=== PATIENT | female | born 1955 | race Caucasian/White ===

== ENCOUNTER 2018-01-04 17:32 | Inpatient (IN) ==
[2018-01-04] MEDS ORDERED: 0.9 % Sodium Chloride 1,000 ML IVC ONE (18:19)
[2018-01-04 18:52] LABS: Basophils % 0.2 %; Hematocrit 34.3 % (35.3-44.9); Hemoglobin 11.6 g/dL (11.5-15.4); Immature Granulocytes % 1.5 % (0-4); Lymphocytes # 0.3 K/mcL (0.6-4.6); Lymphocytes % 2.6 %; Mean Corpuscular HGB Conc 33.8 g/dL (31.6-35.5); Mean Corpuscular Hemoglobin 29.5 pg (28.0-33.3); Mean Corpuscular Volume 87.3 fL (83.0-100.0); Mean Platelet Volume 10.7 fL (9.4-12.4); Monocytes # 0.6 K/mcL (0.0-1.3); Monocytes % 6.3 %; Neutrophils # 9.1 K/mcL (1.6-8.9); Platelet Count 228 K/mcL (140-400); Red Blood Count 3.93 M/mcL (3.82-4.97); Red Cell Distribution Width 15.6 % (11.5-14.5); Segmented Neutrophils % 89.4 %
--- NOTE | 2018-01-04 18:53 | Emergency Department Note ---
Disposition Clinical Impression: Hyperglycemia, Altered mental status Disposition: Admitted As Inpatient Condition: Fair Referrals: Micheal Dickerson DO [Primary Care Provider] - Time of Disposition: 00:44 Recheck wound or abnormal lab - General Chief Complaint: ED Recheck/Abnormal Lab/Rx Stated Complaint: Abnormal labs/Cancer patient Time Seen by Provider: 01/04/18 18:05 - History of Present Illness HPI Narrative: 62yo female PMH diabetes, hypertension, COPD presented to [facility] [place] complaining of abnormal lab results and her PCP told her to go ED. She is alongside her sister and daughter who reports that the patient was recently diagnosed with lung cancer and she is supposed to get a biopsy soon. They report she has had to be admitted recently due to abnormal electrolytes. They report that the patient has been more confused lately and is incontinent of urine and stool. She also has more edema around face and legs. They say this confusion and incontinence has happened before when she had an infection. The patient has also had multiple falls but denies hitting her head are losing consciousness. She admits to nausea and increased swelling of legs and face. She denies fever, chills, chest pain, shortness of breath, abdominal pain, nausea. She has not been checking her glucose. She is a former smoker of 3ppd since 14yo who quit 2 years ago. Her father of lung cancer. - Related Data Home Medications Medication Instructions Recorded Confirmed Albiglutide [Tanzeum] 30 mg SQ QWEEK 06/24/16 06/24/16 Atorvastatin Calcium [Lipitor] 80 mg PO DAILY 06/24/16 06/24/16 BuPROPion SR (12 HR) [Wellbutrin 200 mg PO BID 06/24/16 06/24/16 SR] Cyclobenzaprine [Flexeril] 10 mg PO HS 06/24/16 06/24/16 Gabapentin [Neurontin] 600 mg PO TID 06/24/16 06/24/16 GlipiZIDE [Glipizide Xl] 5 mg PO DAILY 06/24/16 06/24/16 Losartan/Hydrochlorothiazide 1 tab PO DAILY 06/24/16 06/24/16 [Hyzaar 100-25 Tablet] Montelukast [Singulair] 10 mg PO DAILY 06/24/16 06/24/16 Sertraline [Zoloft] 100 mg PO DAILY 06/24/16 06/24/16 TraZODone 75 mg PO HS 06/24/16 06/24/16 metFORMIN [Glucophage] 1,000 mg PO BID 06/24/16 06/24/16 Previous Rx's Medication Instructions Recorded Azithromycin [Zithromax Tri-Ramesh] 500 mg PO DAILY #7 tablet 06/26/16 Cefpodoxime Proxetil 200 mg PO BID #14 tablet 06/26/16 Lactobacillus [Culturelle] 1 each PO BID #14 cap.sprink 06/26/16 Azithromycin [Zithromax] 0 tab PO DAILY #6 tablet 11/02/17 Fluconazole [Diflucan] 150 mg PO DAILY #1 tab 11/02/17 Promethazine/Codeine 5 - 10 ml PO QPM PRN 8 Days #90 ml 11/02/17 [Phenergan/Codeine] Ciprofloxacin [Cipro] 500 mg PO BID 7 Days tablet 12/09/17 Allergies Allergy/AdvReac Type Severity Reaction Status Date / Time Sulfa (Sulfonamide Allergy Hives Verified 06/24/16 01:33 Antibiotics) All systems ED: reviewed and negative except as stated. Review of Systems: As Per HPI Constitutional: Denies: fever, chills Cardiovascular: Denies: chest pain Respiratory: Denies: cough, dyspnea Gastrointestinal: Reports: nausea. Denies: abdominal pain, diarrhea, melena, hematochezia Genitourinary: Denies: urgency Integumentary: Reports: other (Ecchymosis left side) Neurological: Denies: headache Endocrine: Reports: fatigue Past Medical History - Past Medical History Medical history: Reports: arthritis, cancer, COPD, diabetes, hypertension, other Surgical history: Reports: , cancer surgery, cataract, cholecystectomy , hysterectomy, other Psychiatric history: Reports: anxiety, depression - Social History Smoking Status: Former smoker Smokeless Tobacco Status: Yes Alcohol use: Reports: none Drug use: Reports: none Physical Exam - General Limitations: no limitations General appearance: alert, in no apparent distress - Head Head exam: atraumatic - Eye Eye exam: Present: normal appearance - Respiratory Respiratory exam: Present: normal lung sounds bilaterally. Absent: wheezes - Cardiovascular Cardiovascular exam: Present: regular rate, normal rhythm. Absent: systolic murmur - Abdominal Exam Abdominal exam: Present: soft, Non-Tender, normal bowel sounds. Absent: guarding - Extremities Exam Extremities exam: Present: pedal edema. Absent: tenderness - Expanded Lower Extremity Exam Lower leg exam: Present: swelling (2+ pitting edema), other (amputation mutiple toes). Absent: tenderness, erythema - Neurological Exam Neurological exam: Present: alert, oriented X3 - Psychiatric Psychiatric exam: Present: normal affect, normal mood - Skin Skin exam: Present: dry, intact Course Course Narrative: 62yo female PMH diabetes, hypertension, COPD presented to [facility] [place] complaining of abnormal lab results and her PCP told her to go ED. The patient has been more confused over the past 3 days along with more fatigue, incontinence, swelling. She was recently diagnosed with lung cancer that has metastasized to liver. She has had to be admitted recently for electrolyte abnormalities. Differential includes electrolyte abnormalities from lung cancer, UTI, pneumonia, Hyperglycemia. Will order CBC, BMP, CXR, urinalysis, lactic acid, troponin, CK. - Reevaluation(s) Reevaluation #1: Glucose 539, CXR unremarkable. Will give potassium, magnesium, insulin. beta hydroxybuteric acid >2. Anion gap normal. Time: 20:12 Vital Signs Temperature 97.4 F L 01/04/18 17:34 Pulse Rate 95 01/04/18 17:34 Respiratory Rate 18 01/04/18 17:34 Blood Pressure 163/77 01/04/18 17:34 O2 Sat by Pulse Oximetry 92 01/04/18 17:34 Temperature 97.4 F L 01/04/18 17:51 Pulse Rate 87 01/04/18 22:13 Respiratory Rate 16 01/04/18 18:57 Blood Pressure 159/82 01/04/18 22:13 O2 Sat by Pulse Oximetry 98 01/04/18 18:57 Oxygen Delivery Oxygen Delivery Nasal Cannula Recheck wound or abnormal lab - MDM Narrative Medical decision making narrative: 62yo female PMH diabetes, hypertension, COPD presented to [facility] [place] complaining of abnormal lab results and her PCP told her to go ED. Recently diagnosed with lung cancer with metastases to liver at [facility] when she was there for electrolyte abnormalities. She is supposed to get a biopsy soon. Family report that the patient has been more confused lately and is incontinent of urine and stool. She also has more edema around face and legs. They say this confusion and incontinence has happened before when she had an infection. The patient has also had multiple falls but denies hitting her head are losing consciousness. She admits to nausea and increased swelling of legs and face. She denies fever, chills, chest pain, shortness of breath, abdominal pain, nausea. She has not been checking her glucose. She is a former smoker of 3ppd since 14yo who quit 2 years ago. Confusion may be related to hyperglycemia. Head CT negative for acute intracranial abnormality. Hepatic panel, ammonia, MRI lumbar ordered per hospitalist request. MRI demonstrated lesion in thoracic and lumbar spinal cord concerning for metastatic disease, no spinal cord compression or cauda equina. However, there is moderate canal stenosis L4-L5, antereolithesis, and spondylolithesis. She will be admitted to hospital for further evaluation. - Medical Records Medical records reviewed: Yes I reviewed the patient's medical records. - Lab Data Lab results reviewed: Yes I reviewed the patient's lab results. Result diagrams: 01/04/18 18:28 01/04/18 18:28 Lab Results 01/04/18 01/04/18 01/04/18 Range/Units 18:20 18:28 18:28 WBC 10.2 (4.3-11.1) K/mcL RBC 3.93 (3.82-4.97) M/mcL Hgb 11.6 (11.5-15.4) g/dL Hct 34.3 L (35.3-44.9) % MCV 87.3 (83.0-100.0) fL MCH 29.5 (28.0-33.3) pg MCHC 33.8 (31.6-35.5) g/dL RDW 15.6 H (11.5-14.5) % Plt Count 228 (140-400) K/mcL MPV 10.7 (9.4-12.4) fL Immature Gran % 1.5 (0-4) % Seg Neutrophils % 89.4 % Lymphocytes % 2.6 % Monocytes % 6.3 % Eosinophils % 0.0 % Basophils % 0.2 % Neutrophils # 9.1 H (1.6-8.9) K/mcL Lymphocytes # 0.3 L (0.6-4.6) K/mcL Monocytes # 0.6 (0.0-1.3) K/mcL Eosinophils # 0.0 (0.0-0.6) K/mcL Basophils # 0.0 (0.0-0.2) K/mcL PT 11.2 (9.4-12.1) Seconds INR 1.0 APTT 22.4 L (26.0-36.0) Seconds Sodium (136-145) mEq/L Potassium (3.5-5.1) mEq/L Chloride (98-107) mEq/L Carbon Dioxide (23-29) mEq/L BUN (8-23) mg/dL Creatinine (0.60-1.20) mg/dL Est GFR ( Amer) (> 60) Est GFR (Non-Af Amer) (> 60) BUN/Creatinine Ratio (6-26) Glucose (70-105) mg/dL Calculated Osmolality (280-300) Lactic Acid (0.5-2.2) mmol/L Calcium (8.6-10.3) mg/dL Magnesium (1.6-2.6) mg/dL Total Bilirubin (0.3-1.0) mg/dL Direct Bilirubin (0.0-0.2) mg/dL Indirect Bilirubin (0.0-1.2) mg/dL AST (13-39) Units/L ALT (7-52) Units/L Alkaline Phosphatase (34-104) Units/L Creatine Kinase (30-223) Units/L Troponin I (< 0.04) ng/mL Serum Total Protein (6.4-8.9) g/dL Albumin (3.5-5.7) g/dL Globulin (2.4-3.5) g/dL Albumin/Globulin Ratio (1.1-2.2) Beta-Hydroxybutyric Acd > 2.00 H (0.02-0.27) mmol/L Urine Color (Yellow) Urine Clarity (Clear) Urine pH (5.0-8.0) pH Units Ur Specific [place] (1.010-1.025) Urine Protein (Neg-Trace) mg/dL Urine Glucose (UA) (Normal) mg/dL Urine Ketones (Negative) mg/dL Urine Blood (Negative) Urine Nitrite (Negative) Urine Bilirubin (Negative) Urine Urobilinogen (Normal) mg/dL Ur Leukocyte Esterase (Negative) Urine Microscopic RBC (0-3) per hpf Urine Microscopic WBC (0-3) per hpf Ur Squamous Epith Cells (None-Few) per lpf Urine Bacteria (None-Few) per hpf Hyaline Casts (None-Few) per lpf Ur Culture Indicated? (NO) 01/04/18 01/04/18 01/04/18 Range/Units 18:28 18:28 18:28 WBC (4.3-11.1) K/mcL RBC (3.82-4.97) M/mcL Hgb (11.5-15.4) g/dL Hct (35.3-44.9) % MCV (83.0-100.0) fL MCH (28.0-33.3) pg MCHC (31.6-35.5) g/dL RDW (11.5-14.5) % Plt Count (140-400) K/mcL MPV (9.4-12.4) fL Immature Gran % (0-4) % Seg Neutrophils % % Lymphocytes % % Monocytes % % Eosinophils % % Basophils % % Neutrophils # (1.6-8.9) K/mcL Lymphocytes # (0.6-4.6) K/mcL Monocytes # (0.0-1.3) K/mcL Eosinophils # (0.0-0.6) K/mcL Basophils # (0.0-0.2) K/mcL PT (9.4-12.1) Seconds INR APTT (26.0-36.0) Seconds Sodium 138 (136-145) mEq/L Potassium 3.7 (3.5-5.1) mEq/L Chloride 97 L (98-107) mEq/L Carbon Dioxide 29 (23-29) mEq/L BUN 31 H (8-23) mg/dL Creatinine 0.91 (0.60-1.20) mg/dL Est GFR ( Amer) > 60 (> 60) Est GFR (Non-Af Amer) > 60 (> 60) BUN/Creatinine Ratio 34 H (6-26) Glucose 539 H* (70-105) mg/dL Calculated Osmolality 317 H (280-300) Lactic Acid 1.0 (0.5-2.2) mmol/L Calcium 8.4 L (8.6-10.3) mg/dL Magnesium 1.5 L (1.6-2.6) mg/dL Total Bilirubin 0.6 (0.3-1.0) mg/dL Direct Bilirubin 0.3 H (0.0-0.2) mg/dL Indirect Bilirubin 0.3 (0.0-1.2) mg/dL AST 36 (13-39) Units/L ALT 64 H (7-52) Units/L Alkaline Phosphatase 230 H (34-104) Units/L Creatine Kinase 85 (30-223) Units/L Troponin I 0.03 (< 0.04) ng/mL Serum Total Protein 5.2 L (6.4-8.9) g/dL Albumin 3.1 L (3.5-5.7) g/dL Globulin 2.1 L (2.4-3.5) g/dL Albumin/Globulin Ratio 1.5 (1.1-2.2) Beta-Hydroxybutyric Acd (0.02-0.27) mmol/L Urine Color (Yellow) Urine Clarity (Clear) Urine pH (5.0-8.0) pH Units Ur Specific [place] (1.010-1.025) Urine Protein (Neg-Trace) mg/dL Urine Glucose (UA) (Normal) mg/dL Urine Ketones (Negative) mg/dL Urine Blood (Negative) Urine Nitrite (Negative) Urine Bilirubin (Negative) Urine Urobilinogen (Normal) mg/dL Ur Leukocyte Esterase (Negative) Urine Microscopic RBC (0-3) per hpf Urine Microscopic WBC (0-3) per hpf Ur Squamous Epith Cells (None-Few) per lpf Urine Bacteria (None-Few) per hpf Hyaline Casts (None-Few) per lpf Ur Culture Indicated? (NO) 01/04/18 Range/Units 20:29 WBC (4.3-11.1) K/mcL RBC (3.82-4.97) M/mcL Hgb (11.5-15.4) g/dL Hct (35.3-44.9) % MCV (83.0-100.0) fL MCH (28.0-33.3) pg MCHC (31.6-35.5) g/dL RDW (11.5-14.5) % Plt Count (140-400) K/mcL MPV (9.4-12.4) fL Immature Gran % (0-4) % Seg Neutrophils % % Lymphocytes % % Monocytes % % Eosinophils % % Basophils % % Neutrophils # (1.6-8.9) K/mcL Lymphocytes # (0.6-4.6) K/mcL Monocytes # (0.0-1.3) K/mcL Eosinophils # (0.0-0.6) K/mcL Basophils # (0.0-0.2) K/mcL PT (9.4-12.1) Seconds INR APTT (26.0-36.0) Seconds Sodium (136-145) mEq/L Potassium (3.5-5.1) mEq/L Chloride (98-107) mEq/L Carbon Dioxide (23-29) mEq/L BUN (8-23) mg/dL Creatinine (0.60-1.20) mg/dL Est GFR ( Amer) (> 60) Est GFR (Non-Af Amer) (> 60) BUN/Creatinine Ratio (6-26) Glucose (70-105) mg/dL Calculated Osmolality (280-300) Lactic Acid (0.5-2.2) mmol/L Calcium (8.6-10.3) mg/dL Magnesium (1.6-2.6) mg/dL Total Bilirubin (0.3-1.0) mg/dL Direct Bilirubin (0.0-0.2) mg/dL Indirect Bilirubin (0.0-1.2) mg/dL AST (13-39) Units/L ALT (7-52) Units/L Alkaline Phosphatase (34-104) Units/L Creatine Kinase (30-223) Units/L Troponin I (< 0.04) ng/mL Serum Total Protein (6.4-8.9) g/dL Albumin (3.5-5.7) g/dL Globulin (2.4-3.5) g/dL Albumin/Globulin Ratio (1.1-2.2) Beta-Hydroxybutyric Acd (0.02-0.27) mmol/L Urine Color Yellow (Yellow) Urine Clarity Clear (Clear) Urine pH 6.0 (5.0-8.0) pH Units Ur Specific [place] > 1.030 H (1.010-1.025) Urine Protein Trace (Neg-Trace) mg/dL Urine Glucose (UA) >=1000 H (Normal) mg/dL Urine Ketones 15 H (Negative) mg/dL Urine Blood Trace H (Negative) Urine Nitrite Negative (Negative) Urine Bilirubin Negative (Negative) Urine Urobilinogen Normal (Normal) mg/dL Ur Leukocyte Esterase Negative (Negative) Urine Microscopic RBC 0-3 (0-3) per hpf Urine Microscopic WBC 0-3 (0-3) per hpf Ur Squamous Epith Cells Many H (None-Few) per lpf Urine Bacteria None Seen (None-Few) per hpf Hyaline Casts None Seen (None-Few) per lpf Ur Culture Indicated? NO (NO) - Radiology Data Radiology results reviewed: Yes I reviewed the patient's radiology results. Chest X-Ray 01/04/18 18:20 IMPRESSION: Negative portable study. D/ / Allyson Briones Cha, MD / Allyson Briones Cha, MD Interpreting Provider: Allyson Briones Cha, MD Head CT 01/04/18 19:14 IMPRESSION: No acute intracranial abnormality. D/ / Bethel Dixon MD / Bethel Dixon MD Interpreting Provider: Bethel Dixon MD - EKG Data EKG attestation: Yes I reviewed and interpreted this EKG. EKG results narrative: EKG: HR 82, NSR, left axid deviation, no ST or T wave changes. No ischemia noted. MD 147, QRS 83, QT/QTc 366/ 405 EKG shows normal: sinus rhythm Rate: normal Rhythm: NSR [place]/QRS: left axis deviation
[2018-01-04 18:58] LABS: Prothrombin Time 11.2 Seconds (9.4-12.1)
[2018-01-04 19:01] LABS: Activated Partial Thrombo Time 22.4 Seconds (26.0-36.0)
[2018-01-04 19:12] LABS: Troponin I 0.03 ng/mL (< 0.04)
[2018-01-04 19:15] LABS: BUN/Creatinine Ratio 34 (6-26); Blood Urea Nitrogen 31 mg/dL (8-23); Calcium 8.4 mg/dL (8.6-10.3); Carbon Dioxide 29 mEq/L (23-29); Chloride 97 mEq/L (98-107); Creatine Kinase 85 Units/L (30-223); Glucose 539 mg/dL (70-105); Osmolality,Calculated 317 (280-300); Potassium 3.7 mEq/L (3.5-5.1); Sodium 138 mEq/L (136-145); eGFR For African Americans > 60 (> 60); eGFR For Non-African Americans > 60 (> 60)
[2018-01-04] MEDS ORDERED: Insulin Human Regular 10 UNIT in 0.9 % Sodium Chloride 10 ML IV ONE (19:46)
[2018-01-04 20:36] LABS: Magnesium 1.5 mg/dL (1.6-2.6)
[2018-01-04 20:38] LABS: Bilirubin,Urine Negative (Negative); Blood,Urine Trace (Negative); Clarity,Urine Clear (Clear); Color,Urine Yellow (Yellow); Glucose,Urine (UA) >=1000 mg/dL (Normal); Ketones,Urine 15 mg/dL (Negative); Leukocyte Esterase,Urine Negative (Negative); Nitrite,Urine Negative (Negative); Protein,Urine Trace mg/dL (Neg-Trace); Specific Gravity,Urine > 1.030 (1.010-1.025); Urobilinogen,Urine Normal (Normal)
[2018-01-04 20:40] LABS: Bacteria,Urine None Seen per hpf (None-Few); Hyaline Casts,Urine None Seen per lpf (None-Few); RBC,Urine 0-3 per hpf (0-3); Squamous Epithelial Cell,Urine Many per lpf (None-Few); WBC,Urine 0-3 per hpf (0-3)
[2018-01-04] MEDS ORDERED: Potassium Chloride 40 MEQ, Lidocaine 1% 2 ML in D5% in Water 500 ML IVPB ONE (21:07)
--- NOTE | 2018-01-04 21:13 | Emergency Department Note ---
Disposition Clinical Impression: Hyperglycemia Altered mental status Qualifiers: Altered mental status type: unspecified Qualified Code(s): R41.82 - Altered mental status, unspecified Disposition: Admitted As Inpatient Condition: Fair Referrals: Micheal Dickerson DO [Primary Care Provider] - Forms: ED Satisfaction Letter General Adult HPI - General Chief complaint: ED Recheck/Abnormal Lab/Rx Stated complaint: Abnormal labs/Cancer patient Time Seen by Provider: 01/04/18 18:05 Limitations: no limitations Nursing Notes Reviewed: Yes Vital Signs Reviewed: Yes - History of Present Illness Pain Scale: 0 - Related Data Home Medications Medication Instructions Recorded Confirmed Albiglutide [Tanzeum] 30 mg SQ QWEEK 06/24/16 06/24/16 Atorvastatin Calcium [Lipitor] 80 mg PO DAILY 06/24/16 06/24/16 BuPROPion SR (12 HR) [Wellbutrin 200 mg PO BID 06/24/16 06/24/16 SR] Cyclobenzaprine [Flexeril] 10 mg PO HS 06/24/16 06/24/16 Gabapentin [Neurontin] 600 mg PO TID 06/24/16 06/24/16 GlipiZIDE [Glipizide Xl] 5 mg PO DAILY 06/24/16 06/24/16 Losartan/Hydrochlorothiazide 1 tab PO DAILY 06/24/16 06/24/16 [Hyzaar 100-25 Tablet] Montelukast [Singulair] 10 mg PO DAILY 06/24/16 06/24/16 Sertraline [Zoloft] 100 mg PO DAILY 06/24/16 06/24/16 TraZODone 75 mg PO HS 06/24/16 06/24/16 metFORMIN [Glucophage] 1,000 mg PO BID 06/24/16 06/24/16 Previous Rx's Medication Instructions Recorded Azithromycin [Zithromax Tri-Ramesh] 500 mg PO DAILY #7 tablet 06/26/16 Cefpodoxime Proxetil 200 mg PO BID #14 tablet 06/26/16 Lactobacillus [Culturelle] 1 each PO BID #14 cap.sprink 06/26/16 Azithromycin [Zithromax] 0 tab PO DAILY #6 tablet 11/02/17 Fluconazole [Diflucan] 150 mg PO DAILY #1 tab 11/02/17 Promethazine/Codeine 5 - 10 ml PO QPM PRN 8 Days #90 ml 11/02/17 [Phenergan/Codeine] Ciprofloxacin [Cipro] 500 mg PO BID 7 Days tablet 12/09/17 Allergies Allergy/AdvReac Type Severity Reaction Status Date / Time Sulfa (Sulfonamide Allergy Hives Verified 06/24/16 01:33 Antibiotics) Constitutional: Denies: fever, chills Cardiovascular: Denies: chest pain Respiratory: Denies: cough, dyspnea Gastrointestinal: Reports: nausea. Denies: abdominal pain, diarrhea, melena, hematochezia Genitourinary: Denies: urgency Integumentary: Reports: other (Ecchymosis left side) Neurological: Denies: headache Endocrine: Reports: fatigue Past Medical History - Past Medical History Medical history: Reports: arthritis, cancer, COPD, diabetes, hypertension, other Surgical history: Reports: , cancer surgery, cataract, cholecystectomy , hysterectomy, other Psychiatric history: Reports: anxiety, depression - Social History Smoking Status: Former smoker Smokeless Tobacco Status: Yes Alcohol use: Reports: none Drug use: Reports: none Physical Exam - General Limitations: no limitations General appearance: alert, in no apparent distress Course Vital Signs Temperature 97.4 F L 01/04/18 17:34 Pulse Rate 95 01/04/18 17:34 Respiratory Rate 18 01/04/18 17:34 Blood Pressure 163/77 01/04/18 17:34 O2 Sat by Pulse Oximetry 92 01/04/18 17:34 Temperature 97.4 F L 01/04/18 17:51 Pulse Rate 85 01/04/18 18:57 Respiratory Rate 16 01/04/18 18:57 Blood Pressure 165/89 01/04/18 18:57 O2 Sat by Pulse Oximetry 98 01/04/18 18:57 Oxygen Delivery Oxygen Delivery Nasal Cannula Medical Decision Making - Lab Data Result diagrams: 01/04/18 18:28 01/04/18 18:28 Lab Results 01/04/18 01/04/18 01/04/18 Range/Units 18:20 18:28 18:28 WBC 10.2 (4.3-11.1) K/mcL RBC 3.93 (3.82-4.97) M/mcL Hgb 11.6 (11.5-15.4) g/dL Hct 34.3 L (35.3-44.9) % MCV 87.3 (83.0-100.0) fL MCH 29.5 (28.0-33.3) pg MCHC 33.8 (31.6-35.5) g/dL RDW 15.6 H (11.5-14.5) % Plt Count 228 (140-400) K/mcL MPV 10.7 (9.4-12.4) fL Immature Gran % 1.5 (0-4) % Seg Neutrophils % 89.4 % Lymphocytes % 2.6 % Monocytes % 6.3 % Eosinophils % 0.0 % Basophils % 0.2 % Neutrophils # 9.1 H (1.6-8.9) K/mcL Lymphocytes # 0.3 L (0.6-4.6) K/mcL Monocytes # 0.6 (0.0-1.3) K/mcL Eosinophils # 0.0 (0.0-0.6) K/mcL Basophils # 0.0 (0.0-0.2) K/mcL PT 11.2 (9.4-12.1) Seconds INR 1.0 APTT 22.4 L (26.0-36.0) Seconds Sodium (136-145) mEq/L Potassium (3.5-5.1) mEq/L Chloride (98-107) mEq/L Carbon Dioxide (23-29) mEq/L BUN (8-23) mg/dL Creatinine (0.60-1.20) mg/dL Est GFR ( Amer) (> 60) Est GFR (Non-Af Amer) (> 60) BUN/Creatinine Ratio (6-26) Glucose (70-105) mg/dL Calculated Osmolality (280-300) Lactic Acid (0.5-2.2) mmol/L Calcium (8.6-10.3) mg/dL Magnesium (1.6-2.6) mg/dL Creatine Kinase (30-223) Units/L Troponin I (< 0.04) ng/mL Beta-Hydroxybutyric Acd > 2.00 H (0.02-0.27) mmol/L Urine Color (Yellow) Urine Clarity (Clear) Urine pH (5.0-8.0) pH Units Ur Specific [place] (1.010-1.025) Urine Protein (Neg-Trace) mg/dL Urine Glucose (UA) (Normal) mg/dL Urine Ketones (Negative) mg/dL Urine Blood (Negative) Urine Nitrite (Negative) Urine Bilirubin (Negative) Urine Urobilinogen (Normal) mg/dL Ur Leukocyte Esterase (Negative) Urine Microscopic RBC (0-3) per hpf Urine Microscopic WBC (0-3) per hpf Ur Squamous Epith Cells (None-Few) per lpf Urine Bacteria (None-Few) per hpf Hyaline Casts (None-Few) per lpf Ur Culture Indicated? (NO) 01/04/18 01/04/18 01/04/18 Range/Units 18:28 18:28 20:29 WBC (4.3-11.1) K/mcL RBC (3.82-4.97) M/mcL Hgb (11.5-15.4) g/dL Hct (35.3-44.9) % MCV (83.0-100.0) fL MCH (28.0-33.3) pg MCHC (31.6-35.5) g/dL RDW (11.5-14.5) % Plt Count (140-400) K/mcL MPV (9.4-12.4) fL Immature Gran % (0-4) % Seg Neutrophils % % Lymphocytes % % Monocytes % % Eosinophils % % Basophils % % Neutrophils # (1.6-8.9) K/mcL Lymphocytes # (0.6-4.6) K/mcL Monocytes # (0.0-1.3) K/mcL Eosinophils # (0.0-0.6) K/mcL Basophils # (0.0-0.2) K/mcL PT (9.4-12.1) Seconds INR APTT (26.0-36.0) Seconds Sodium 138 (136-145) mEq/L Potassium 3.7 (3.5-5.1) mEq/L Chloride 97 L (98-107) mEq/L Carbon Dioxide 29 (23-29) mEq/L BUN 31 H (8-23) mg/dL Creatinine 0.91 (0.60-1.20) mg/dL Est GFR ( Amer) > 60 (> 60) Est GFR (Non-Af Amer) > 60 (> 60) BUN/Creatinine Ratio 34 H (6-26) Glucose 539 H* (70-105) mg/dL Calculated Osmolality 317 H (280-300) Lactic Acid 1.0 (0.5-2.2) mmol/L Calcium 8.4 L (8.6-10.3) mg/dL Magnesium 1.5 L (1.6-2.6) mg/dL Creatine Kinase 85 (30-223) Units/L Troponin I 0.03 (< 0.04) ng/mL Beta-Hydroxybutyric Acd (0.02-0.27) mmol/L Urine Color Yellow (Yellow) Urine Clarity Clear (Clear) Urine pH 6.0 (5.0-8.0) pH Units Ur Specific [place] > 1.030 H (1.010-1.025) Urine Protein Trace (Neg-Trace) mg/dL Urine Glucose (UA) >=1000 H (Normal) mg/dL Urine Ketones 15 H (Negative) mg/dL Urine Blood Trace H (Negative) Urine Nitrite Negative (Negative) Urine Bilirubin Negative (Negative) Urine Urobilinogen Normal (Normal) mg/dL Ur Leukocyte Esterase Negative (Negative) Urine Microscopic RBC 0-3 (0-3) per hpf Urine Microscopic WBC 0-3 (0-3) per hpf Ur Squamous Epith Cells Many H (None-Few) per lpf Urine Bacteria None Seen (None-Few) per hpf Hyaline Casts None Seen (None-Few) per lpf Ur Culture Indicated? NO (NO) Attestation Statement - Attestation Attestation: I, Cruz Cain, examined this patient and my medical decision-making was reviewed with the QUALITY ASSURANCE MONITOR BODY/PA/Advanced Practice Nurse/Resident Physician. I agree with the documented findings, disposition and treatment plan as described except to the extent set forth below. 62-year-old female presents emergency Department with concerns of confusion, abnormal lab results. Family states patient was sent in for hypokalemia and hypomagnesemia. Patient recently had similar diagnosis and had her electrolytes repleted within the past week at [facility]. She was just discharged within the past week. Patient was also recently diagnosed with lung cancer, she has not had a formal evaluation of her cancer. Family states the patient was sent to [facility] for further evaluation of her cancer including possible biopsy. Patient's PCP is Dr. Dickerson. Patient has significantly elevated glucose on examination. She also has elevated beta hydroxybutyric acid however she does not have an anion gap. Patient urinalysis was negative for urinary tract infection. Family states patient has been forgetting to take her metformin and insulin. Patient had a fall 2 weeks ago however she has had an evaluation in the emergency department ruling out traumatic injury since that time. Head CT was negative for acute fracture or intracranial hemorrhage. Patient is comfortable with the plan for admission to the hospital for further care and evaluation. Patient given insulin and potassium replacement in the emergency department.
[2018-01-04 21:42] LABS: Albumin 3.1 g/dL (3.5-5.7); Albumin/Globulin Ratio 1.5 (1.1-2.2); Bilirubin,Direct 0.3 mg/dL (0.0-0.2); Bilirubin,Indirect 0.3 mg/dL (0.0-1.2); Bilirubin,Total 0.6 mg/dL (0.3-1.0); Globulin 2.1 g/dL (2.4-3.5); Total Protein 5.2 g/dL (6.4-8.9)
[2018-01-04] MEDS ORDERED: Gadolinium Contrast Agent (WT Based) IV PRN (21:44)
[2018-01-04] MEDS ORDERED: Petrolatum, White OINT.PACK TP ONE (22:01)
--- NOTE | 2018-01-05 02:03 | Event Note ---
Date of Encounter: 01/05/18 Time of Encounter: 01:46 Patient was seen and examined. I agree with the H&P as written by the resident physician. Briefly, 62-year-old female who has a history of hypertension, hyperlipidemia, diabetes mellitus, COPD, history of osteomyelitis of the lower extremities, morbid obesity, former smoking history who presented to us by recommendations from her primary care physician due to abnormal lab results. She was sent to the ED. I am not exactly sure what abnormal lab results those were. The patient was recently discharged about a week ago from [facility] for abnormal labs as well and at the time the family tells me that she had hypokalemia. Some time while she was there she ended up with imaging studies that showed suspected lung mass with metastasis to the liver. She apparently was going to have a scheduled biopsy done. We do not have any of those records. The family reported frequent falls over the last week or so as well as generalized weakness, confusion, urinary and bowel incontinence. When she presented to the ED, the patient had laboratory workup as well as a CT head which was unremarkable and a chest x-ray that was negative. When I went to evaluate the patient for an admission and due to her history I had asked the ED staff to obtain MRIs of her brain, lumbar, and thoracic spine to rule out brain metastases and any possible vasogenic edema/brain herniation and to rule out spinal cord metastases and possible spinal cord compression. The ED did obtain these imaging studies in the ED and and MRI of the brain showed tiny foci of suspected restricted diffusion in the right centrum semi-ovale white matter and left occipital lobe likely to present tiny acute infarcts. The MRI of the lumbar and thoracic spine showed multi-level osseous lesions throughout the spine suspicious for metastatic disease with no evidence of compression of the spinal cord. There was also moderate canal stenosis at L4-L5 as well as L5-S1 central/right paracentral disc protrusion impinging on the right S1 nerve root. Her labs were mostly significant for hyperglycemia with glucose of 539 and abnormal liver function tests. The patient was not in DKA. The patient was hypertensive in the ED. I spoke to the family in details about the patient's likely diagnosis and I even offered them a transfer to another facility ([facility]ly [facility] where she had her original workup). They preferred to stay in this facility as it is closer to home. RGEN: NAD, alert oriented 2 CVS: RRR. S1, S2, No m/r/g RESP: Diminished breath sounds ABD: Soft, NT, ND, +BS EXT: No edema. 2+ DP. No rashes NEURO: Strength is about 4 out of 5 in the right upper and right lower extremities. 5/5 on the left upper and lower. No sensory deficits. Admit the patient to the hospitalist service. Consult oncology. Patient may need a CTA of the neck to rule out SVC syndrome. We will leave that to oncology to decide on for now. Consult neurology for possible acute stroke although I suspect those are possibly metastatic lesions rather than infarcts. Symptoms have been going on for about a week or so. Hold off on aspirin for now. Nothing by mouth Obtain records from [facility] May need a consult to pulmonary for possible biopsy. This will be decided pending on the imaging studies that were done at [facility] Gentle hydration Mediums dose sliding scale insulin Pain control DVT prophylaxis
[2018-01-05] MEDS ORDERED: *HR* Dextrose 50 % in Water (Syg) 50 ML SYRINGE IVP PRN (02:18)
[2018-01-05] MEDS ORDERED: Dextrose Gel 15 GM/37.5 ML TUBE PO PRN ×2 (02:18)
[2018-01-05] MEDS ORDERED: D5% in Water 1,000 ML IVC PRN (02:18)
[2018-01-05] MEDS ORDERED: Lactulose Oral Soln 20 GM/30 ML UDC PO ONE (02:50)
--- NOTE | 2018-01-05 03:06 | Internal Med History&Physical ---
Date of Encounter: 01/05/18 Time of Encounter: 03:06 Internal Medicine - H&P: HPI Chief complaint: AMS Admitted From: Home Plans for Post Hospital Care: Home History of present illness: Ms. Gracia is a 62 year old female with a past medical history of hypertension, diabetes insulin-dependent with complications of multiple rate total amputation , COPD non-oxygen dependent, and newly diagnosed at [facility] right lung mass (last week) who presented to the ED after patient saw her PCP with AMS and low potassium. Patient's family is with her and states that she was admitted to [facility] last week for hypokalemia and was found to have a CT scan that showed was suspicious for lung mass. Patient was discharged from the hospital and since the day after discharge family states that she has been confused for about the last week with associated nausea and vomiting, loss of bowel and bladder, increase weakness. Previous to the last week patient was able to walk and has not been able to for 1 week. In the ED, imaging studies were obtained and CT head unremarkable, chest x-ray negative, MRI of brain showed showed tiny foci of suspected restricted diffusion in the right centrum semi-ovale white matter and left occipital lobe likely to present tiny acute infarcts. MRI of the lumbar and thoracic spine showed multi-level osseous lesions throughout the spine suspicious for metastatic disease with no evidence of compression of the spinal cord and moderate canal stenosis at L4-L5 as well as L5-S1 central/right paracentral disc protrusion impinging on the right S1 nerve root. Abnormal labs: Glucose = 539 no anion gap, Alk phos 230, Ammonia 56, and UA was negative. Patient was admitted to the floor for metabolic encephalopathy. Past Med Surg Social Fam HX - Past Medical History Medical history: arthritis, cancer, COPD, diabetes, hypertension, other Additional medical history: Lung. Liver METS Psychiatric history: anxiety, depression - Past Surgical History Surgical History: , cancer surgery, cataract, cholecystectomy, hysterectomy, other Additional surgical history: toe removal - Social History Smoking Status: Former smoker Smokeless Tobacco Status: Yes Alcohol use: none Drug use: none Internal Medicine - H&P: Meds Albiglutide [Tanzeum] 30 mg SQ QWEEK 06/24/16 [History] Atorvastatin Calcium [Lipitor] 80 mg PO DAILY 06/24/16 [History] BuPROPion SR (12 HR) [Wellbutrin SR] 200 mg PO BID 06/24/16 [History] Cyclobenzaprine [Flexeril] 10 mg PO HS 06/24/16 [History] Gabapentin [Neurontin] 600 mg PO TID 06/24/16 [History] GlipiZIDE [Glipizide Xl] 5 mg PO DAILY 06/24/16 [History] Losartan/Hydrochlorothiazide [Hyzaar 100-25 Tablet] 1 tab PO DAILY 06/24/16 [ History] Montelukast [Singulair] 10 mg PO DAILY 06/24/16 [History] Sertraline [Zoloft] 100 mg PO DAILY 06/24/16 [History] TraZODone 75 mg PO HS 06/24/16 [History] metFORMIN [Glucophage] 1,000 mg PO BID 06/24/16 [History] Azithromycin [Zithromax Tri-Ramesh] 500 mg PO DAILY #7 tablet 06/26/16 [Rx] Cefpodoxime Proxetil 200 mg PO BID #14 tablet 06/26/16 [Rx] Lactobacillus [Culturelle] 1 each PO BID #14 cap.sprink 06/26/16 [Rx] Azithromycin [Zithromax] 0 tab PO DAILY #6 tablet 11/02/17 [Rx] Fluconazole [Diflucan] 150 mg PO DAILY #1 tab 11/02/17 [Rx] Promethazine/Codeine [Phenergan/Codeine] 5 - 10 ml PO QPM PRN 8 Days #90 ml 04/13 [Rx] Ciprofloxacin [Cipro] 500 mg PO BID 7 Days tablet 12/09/17 [Rx] 3 Allergy/AdvReac Type Severity Reaction Status Date / Time Sulfa (Sulfonamide Allergy Hives Verified 06/24/16 01:33 Antibiotics) All Systems PM: A 10-system review of systems was performed and is negative for pertinent findings except as documented above in the HPI. - Constitutional Vitals: Temp Pulse Resp BP Pulse Ox 98.0 F 83 16 172/93 98 01/05/18 01:33 01/05/18 01:33 01/05/18 01:33 01/05/18 01:33 01/05/18 01:33 Exam: Constitutional: Alert, in no acute distress, confused at times about details but speaking in complete sentences and answering questions appropriately Head: Normocephalic, atraumatic, neck and facial swelling lymphadenopathy:lymphnode present on right side of neck Heart: Normal, regular rate and rhythm, no murmurs Lungs: Clear to auscultation, no wheezes, rales, or rhonchi Abdomen: Soft, nondistended, nontender, bowel sounds present and normal, no guarding or rigidity. Extremities:+ 3 pitting edema lower extremities, No clubbing, radial pulse +2/4 , capillary refill <2sec. Skin: Skin warm and dry, multiple healing ulcers on skin, no rashes, no jaundice Neurologic: Cranial nerves II through XII grossly intact, strength 5/5 in all extremities, no facial asymmetry Psych: Cooperative with exam, good eye contact, speech clear, Internal Med - H&P Results - Labs CBC & Chem 7: 01/04/18 18:28 01/04/18 18:28 - Impressions ITS Impressions Lumbar Spine MRI 01/04/18 21:42 IMPRESSION: Multifocal multi level osseous lesions throughout the thoracic and lumbar spine as detailed, suspicious for metastatic disease. No evidence of extraosseous soft tissue spread of disease. No abnormal signal in the cord and no gross compression of the cauda equina. However, there is moderate canal stenosis at L4-5 where there is grade 1 anterolisthesis, spondylolysis, and associated degenerative changes. L5-S1 central/right paracentral disc protrusion impinges upon traversing right S1 nerve root. D/ / Jeffrey Foss MD / Jeffrey Foss MD Interpreting Provider: Jeffrey Foss MD Brain MRI 01/04/18 21:44 IMPRESSION: Tiny foci of suspected restricted diffusion in right centrum semiovale white matter and left occipital lobe, likely tiny acute infarcts. No brain hemorrhage or edema. The findings were sent to the Radiology Results Communication Center at 1:01 am on 01/05/2018to be communicated to a licensed caregiver. 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 Innumerable hepatic hypodensities and bilateral adrenal masses are most consistent with metastatic disease." MRI of lumbar region suspicious for mets to the spine. Only have report available at this time will need to consult pulmonology to see if they desire to biopsy and if we need to repeat imaging here. Plan: - Consult to oncology - consult to pulmonology for possible bronchoscopy and biopsy - DuoNebs Q6H eddie, Q4H prn - need to obtain images of CT scan - Diet: NPO for possible bronchoscopy (2) Acute metabolic encephalopathy Current Visit: Yes Status: Acute Assessment and plan: Acute metabolic encephalopathy of unknown origin. Possibly secondary to acute stroke vs. metastatic cancer to the brain vs. superior vena cava syndrome vs. elevated ammonia. MRI of brain showed showed tiny foci of suspected restricted diffusion in the right centrum semi-ovale white matter and left occipital lobe likely to present tiny acute infarcts. Ammonia level = 56, most likely 2/2 to liver mets, less likely cause of metabolic encephalopathy. Plan: - consult neurology in the AM - Lactulose 10mg once (3) Transaminitis Current Visit: Yes Status: Acute Assessment and plan: Mild transaminitis. ALT = 64, ALk Phos= 230. Likely 2/2 mets to the liver. (4) Hyperammonemia Current Visit: Yes Status: Acute Assessment and plan: Likely 2/2 to liver mets. Ammonia level = 56. Lactulose 10mg PO once. (5) Hypomagnesemia Current Visit: Yes Status: Acute Assessment and plan: Magnesium = 1.5. Magnesium sulfate given in the ED. Repeat Mg level. (6) Diabetes type 2, uncontrolled Current Visit: Yes Status: Chronic Assessment and plan: DM 2 insulin dependent with multiple right toe amputations and healing skin ulcers. Patient has not been taking her medication for the past week. Glucose = 539. Given sliding scale insulin and glucose decrease to 399. 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
[2018-01-05] MEDS ORDERED: Naloxone 0.4 MG/ML INJ IVP PRN (05:14)
[2018-01-05] MEDS ORDERED: Acetaminophen 325 MG TABLET PO PRN (05:14)
[2018-01-05] MEDS: *HR* Heparin 5,000 UNIT/ML VIAL SQ SCH ×2 (05:55→14:00)
[2018-01-05] MEDS: 0.9 % Sodium Chloride 1,000 ML IVC SCH ×2 (05:56→23:51)
[2018-01-05] MEDS: Insulin LISPRO 300 UNITS/3 ML VIAL SQ SCH ×3 (05:58→18:26)
[2018-01-05] MEDS: Ipratropium/Albuterol Neb 3 ML IH SCH ×4 (07:10→22:23)
[2018-01-05] MEDS ORDERED: Meropenem 1,000 MG in Water for inj. (sterile) 20 ML 10 ML IVP SCH (08:00)
--- NOTE | 2018-01-05 08:10 | Pulmonology Consult Note ---
Date of Encounter: 01/05/18 Time of Encounter: 08:09 Assessment and Plan (1) Mass of middle lobe of right lung Current Visit: Yes Status: Acute I reviewed the radiology reports from the outside hospital unfortunately the disks are not available and would not be available per the nursing staff and medical records for 3 days that it would take to get here. The report is notable for a right middle lobe lesion that appears to be fairly anteriorly located near the pericardium which may make either diagnostic bronchoscopy or transthoracic biopsy difficult. She does have notable right-sided lymphadenopathy per report that could be amenable to endobronchial ultrasound with fine-needle aspiration. Unfortunately this procedure could not be accomplished until early part of next week given our interventional paver layer is not available to perform the procedure. Patient is considering transferring to [facility] to the [facility] for further evaluation. I recommend formal Oncology evaluation here and a final determination is to stay then the patient should be set up for biopsy wherever practical given this appears to be metastatic disease. This may require repeat imaging here to expedite process. In any event I did encourage the daughter to obtain the physical radiology discs with the radiology reports from [facility] so they can be uploaded either here or if they decide to be transferred to an outside facility My overall impression is this likely represents rapidly progressive metastatic lung cancer and so I think there is an urgency here to make a tissue diagnosis. There may be some limitation on what is available with regards to treatment with the patient given general poor performance status at this time although I will defer to oncology (2) Acute metabolic encephalopathy Current Visit: Yes Status: Acute This is likely a combination of hepatic derangement and hyperglycemia without DKA. 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 She presented from her to ED for essentially aggressive decline over last 2 weeks. Was seen in [facility] last week for frequent falls and weakness and extensive evaluation including a CT of the chest was was notable for a right lung nodule with right-sided adenopathy and evidence of distant metastatic disease including liver and suspected adrenal metastases. In the emergency department here imaging studies were obtained including CT head which was unremarkable she had a chest x-ray which showed acute process MRI of the brain showed tiny foci suspected tiny acute infarct she had MRI of the lumbar and thoracic spine which showed multilevel osseous lesions throughout the spine suspicious for metastatic disease and no evidence of compression she had a glucose greater than 500 without anion gap. She is being treated for metabolic encephalopathy and possibly acute stroke. The patient is a poor historian unable to recall details of her recent medical care her daughter is at bedside helping or answer questions she is been confused over last 2 weeks. Pulmonary was consulted for further evaluation of lung lesions. As mentioned patient is a former smoker no industrial exposures no exposure to exotic pets she does have a history of skin cancer for which the daughter and the patient both say were "melanoma" although I am not sure about this and the patient said it was "cut out" Past Med Surg Social Fam HX - Past Medical History Medical history: arthritis, cancer, COPD, diabetes, hypertension, other Additional medical history: Lung. Liver METS Psychiatric history: anxiety, depression - Past Surgical History Surgical History: , cancer surgery, cataract, cholecystectomy, hysterectomy, other Additional surgical history: toe removal - Social History Smoking Status: Former smoker Smokeless Tobacco Status: Yes Alcohol use: none Drug use: none Medications and Allergies Albiglutide [Tanzeum] 15 mg SQ QWEEK 06/24/16 [History] Atorvastatin Calcium [Lipitor] 80 mg PO DAILY 06/24/16 [History] BuPROPion SR (12 HR) [Wellbutrin SR] 200 mg PO BID 06/24/16 [History] Cyclobenzaprine [Flexeril] 10 mg PO HS 06/24/16 [History] Gabapentin [Neurontin] 600 mg PO HS 06/24/16 [History] GlipiZIDE [Glipizide Xl] 5 mg PO BID 06/24/16 [History] Montelukast [Singulair] 10 mg PO DAILY 06/24/16 [History] Sertraline [Zoloft] 100 mg PO DAILY 06/24/16 [History] TraZODone 75 mg PO HS 06/24/16 [History] metFORMIN [Glucophage] 1,000 mg PO BID 06/24/16 [History] Meloxicam [Meloxicam] 15 mg PO DAILY 01/05/18 [History] Valsartan [Valsartan] 160 mg PO DAILY 01/05/18 [History] 3 Allergy/AdvReac Type Severity Reaction Status Date / Time Sulfa (Sulfonamide Allergy Hives Verified 06/24/16 01:33 Antibiotics) All Systems: The remainder of the systems were reviewed and are negative Physical Examination Vital Signs: Vital Signs, Last 4 Hours Temp Pulse Resp BP Pulse Ox 01/05/18 06:36 97.8 F 90 17 169/79 98 General appearance: no acute distress Eyes: nonicteric ENT: oropharynx moist Mallampati (class): 4 Neck: no lymphadenopathy Effort: normal Auscultation: bilateral: clear Cardiovascular: regular rate and rhythm Gastrointestinal: soft, non-tender Integumentary: other (Scattered areas of lower extremity ulcers primarily on the left lower extremity) Extremities: no cyanosis, no edema, pink and warm, other (She has 1+ bilateral pitting edema) Musculoskeletal: no deformities normal mental status, pupils equal and round, other (No gross focal neurological deficits; she is unable to consistently remember specifics of her recent medical care or even specific details of her past medical history including where she used to work. She is alert to person and place however) affect normal Results - Laboratory Findings CBC and BMP: 01/04/18 18:28 01/04/18 18:28 PT/INR, D-dimer PT 11.2 Seconds (9.4-12.1) 01/04/18 18:28 Abnormal lab findings: Abnormal lab results Hct 34.3 % (35.3-44.9) L 01/04/18 18:28 RDW 15.6 % (11.5-14.5) H 01/04/18 18:28 Neutrophils # 9.1 K/mcL (1.6-8.9) H 01/04/18 18:28 Lymphocytes # 0.3 K/mcL (0.6-4.6) L 01/04/18 18:28 APTT 22.4 Seconds (26.0-36.0) L 01/04/18 18:28 Chloride 97 mEq/L (98-107) L 01/04/18 18:28 BUN 31 mg/dL (8-23) H 01/04/18 18:28 BUN/Creatinine Ratio 34 (6-26) H 01/04/18 18:28 Glucose 539 mg/dL (70-105) H* 01/04/18 18:28 POC Glucose 399 mg/dL (70-99) H 01/05/18 01:03 Calculated Osmolality 317 (280-300) H 01/04/18 18:28 Calcium 8.4 mg/dL (8.6-10.3) L 01/04/18 18:28 Magnesium 1.5 mg/dL (1.6-2.6) L 01/04/18 18:28 Direct Bilirubin 0.3 mg/dL (0.0-0.2) H 01/04/18 18:28 ALT 64 Units/L (7-52) H 01/04/18 18:28 Alkaline Phosphatase 230 Units/L (34-104) H 01/04/18 18:28 Ammonia 56 mcmol/L (16-53) H 01/05/18 01:02 Serum Total Protein 5.2 g/dL (6.4-8.9) L 01/04/18 18:28 Albumin 3.1 g/dL (3.5-5.7) L 01/04/18 18:28 Globulin 2.1 g/dL (2.4-3.5) L 01/04/18 18:28 Beta-Hydroxybutyric Acd > 2.00 mmol/L (0.02-0.27) H 01/04/18 18:20 Ur Specific [place] > 1.030 (1.010-1.025) H 01/04/18 20:29 Urine Glucose (UA) >=1000 mg/dL (Normal) H 01/04/18 20:29 Urine Ketones 15 mg/dL (Negative) H 01/04/18 20:29 Urine Blood Trace (Negative) H 01/04/18 20:29 Ur Squamous Epith Cells Many per lpf (None-Few) H 01/04/18 20:29 - Clinical Findings Intake & Output: Intake & Output 01/04/18 01/05/18 01/05/18 23:59 07:59 15:59 Weight 107.6 kg Consult Discharge Plan - Plan Referrals: Micheal Dickerson DO [Primary Care Provider] - 01/28/18 4:30 pm
--- NOTE | 2018-01-05 12:41 | Neurology - Consult Note ---
<Dillon Bates - Last Filed: 01/05/18 15:58> Date of Encounter: 01/05/18 Time of Encounter: 11:00 Assessment and Plan (1) Altered mental status Current Visit: Yes Status: Acute Patient and family reported intermittent confusion for one week. Patient not confused at time of exam. Differential included metabolic encephalopathy vs. intracranial infarction, vs. brain metasisis. MRI did show two areas of restricted diffusion, but these coupled with her chronic microvascular disease point to small vessel chornic issues and are unlikely to be the cause of her waxing and waning mental status. Most likely this is a metabolic encephalopathy likely secondary to her liver metasistis and elevated ammonia level. Patient has also had issues with electrolyte imbalances including hypokalemia last week. No signs of infection in urine or blood. Recommendations: Complete Stroke work up including: ECHO Carotid U/S MRA head/neck PT/OT consult aspirin consider restarting statin medication. Patient requesting transfer to [facility] in light of her cancer diagnosis. 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 Qualifiers: Altered mental status type: transient alteration of awareness Qualified Code(s): R40.4 - Transient alteration of awareness History of Present Illness HPI: Ms. Gracia is a 62 year old female c PMHx of arthritis, Lung cancer with known liver mets, COPD, diabetes, and hypertension who reports to the [facility] c/o AMS, low potassium on out patient testing. Patient reports for the last week she has intermittent confusion. She reports she will be talking and not understand what she's talking about. She has been generalized weakness, Nausea, and Vomiting, loss of bowel and bladder. She was diagnosed with lung mass last week at [facility] and found to have mets to liver. Here at [facility] patient had CT head that was unremarkable, MRI head read as having tiny foci of suspected restricted diffusion in the right centrum semi-ovale white matter and left occipital lobe likely to present tiny acute infarcts. MRI of the lumbar and thoracic spine showed "multi-level osseous lesions throughout the spine suspicious for metastatic disease with no evidence of compression of the spinal cord and moderate canal stenosis at L4-L5 as well as L5-S1 central/right paracentral disc protrusion impinging on the right S1 nerve root." Patient's labs showed Glucose = 539 Alk phos 230, Ammonia 56. Patient was started on lactulose. Patient reports improvement since admission. Patient and family requesting transfer to the [facility] for further work up of her Cancer diagnosis. Past Med Surg Social Fam HX - Past Medical History Medical history: arthritis, cancer, COPD, diabetes, hypertension, other Additional medical history: Lung. Liver METS Psychiatric history: anxiety, depression - Past Surgical History Surgical History: , cancer surgery, cataract, cholecystectomy, hysterectomy, other Additional surgical history: toe removal - Social History Smoking Status: Former smoker Smokeless Tobacco Status: Yes Alcohol use: none Drug use: none Medications and Allergies Albiglutide [Tanzeum] 15 mg SQ QWEEK 06/24/16 [History] Atorvastatin Calcium [Lipitor] 80 mg PO DAILY 06/24/16 [History] BuPROPion SR (12 HR) [Wellbutrin SR] 200 mg PO BID 06/24/16 [History] Cyclobenzaprine [Flexeril] 10 mg PO HS 06/24/16 [History] Gabapentin [Neurontin] 600 mg PO HS 06/24/16 [History] GlipiZIDE [Glipizide Xl] 5 mg PO BID 06/24/16 [History] Montelukast [Singulair] 10 mg PO DAILY 06/24/16 [History] Sertraline [Zoloft] 100 mg PO DAILY 06/24/16 [History] TraZODone 75 mg PO HS 06/24/16 [History] metFORMIN [Glucophage] 1,000 mg PO BID 06/24/16 [History] Meloxicam [Meloxicam] 15 mg PO DAILY 01/05/18 [History] Valsartan [Valsartan] 160 mg PO DAILY 01/05/18 [History] 3 Allergy/AdvReac Type Severity Reaction Status Date / Time Sulfa (Sulfonamide Allergy Hives Verified 06/24/16 01:33 Antibiotics) All Systems: The remainder of the systems were reviewed and are negative Review of Systems: See HPI Physical Examination - Vital Signs Vital Signs: Initial Vital Signs Temp Pulse Resp BP Pulse Ox 97.4 F L 95 18 163/77 92 01/04/18 17:34 01/04/18 17:34 01/04/18 17:34 01/04/18 17:34 01/04/18 17:34 - Constitutional General appearance: comfortable - Neurologic Sensorimotor examination: intact Detailed motor examination: grossly full strength in all extremities, full strength in all major muscle groups Motor examination - right side: 11/28: deltoids, biceps, triceps, wrist flexion, wrist extension, 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, hip flexors, tibialis Anterior, quadriceps (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), plantarflexion Motor examination - left side: 11/28: deltoids, biceps, triceps, wrist flexion, wrist extension, hip flexors, 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, quadriceps, tibialis Anterior, toe extension (EHL), plantarflexion Detailed sensory examination: intact, light touch Reflexes: Biceps: 2+, Brachioradialis: 2+ Mental Status Examination: awake, alert, oriented to person, oriented to place, oriented to time, follows commands appropriately, answers questions appropriately, no agnosia, no aphasia, no aproxia Cranial nerve examination: PERRL, EOMI, visual bustos intact, sensory to face intact, no facial asymmetry is present, no dysarthria, hearing is intact symmetrically, soft palate elevates bilaterally upon phonation, flexes SCM and trapezius muscles symmetrically with full power, tongue protrudes midline, no atrophy or facial fasiculations present Cerebellar examination: no dysmetria, performs finger to nose and heel to gallagher symmetrically without ataxia Results - Laboratory Findings CBC and BMP: 01/04/18 18:28 01/04/18 18: Abnormal lab findings: Abnormal lab results Hct 34.3 % (35.3-44.9) L 01/04/18 18: RDW 15.6 % (11.5-14.5) H 01/04/18 18: Neutrophils # 9.1 K/mcL (1.6-8.9) H 01/04/18 18: Lymphocytes # 0.3 K/mcL (0.6-4.6) L 01/04/18 18: APTT 22.4 Seconds (26.0-36.0) L 01/04/18 18: Chloride 97 mEq/L (98-107) L 01/04/18 18: BUN 31 mg/dL (8-23) H 01/04/18 18: BUN/Creatinine Ratio 34 (6-26) H 01/04/18 18: Glucose 539 mg/dL (70-105) H* 01/04/18 18: POC Glucose 398 mg/dL (70-99) H 01/05/18 07:45 Calculated Osmolality 317 (280-300) H 01/04/18 18:28 Calcium 8.4 mg/dL (8.6-10.3) L 01/04/18 18:28 Magnesium 1.5 mg/dL (1.6-2.6) L 01/04/18 18:28 Direct Bilirubin 0.3 mg/dL (0.0-0.2) H 01/04/18 18:28 ALT 64 Units/L (7-52) H 01/04/18 18:28 Alkaline Phosphatase 230 Units/L (34-104) H 01/04/18 18:28 Ammonia 56 mcmol/L (16-53) H 01/05/18 01:02 Serum Total Protein 5.2 g/dL (6.4-8.9) L 01/04/18 18:28 Albumin 3.1 g/dL (3.5-5.7) L 01/04/18 18:28 Globulin 2.1 g/dL (2.4-3.5) L 01/04/18 18:28 Beta-Hydroxybutyric Acd > 2.00 mmol/L (0.02-0.27) H 01/04/18 18:20 Ur Specific [place] > 1.030 (1.010-1.025) H 01/04/18 20:29 Urine Glucose (UA) >=1000 mg/dL (Normal) H 01/04/18 20:29 Urine Ketones 15 mg/dL (Negative) H 01/04/18 20:29 Urine Blood Trace (Negative) H 01/04/18 20:29 Ur Squamous Epith Cells Many per lpf (None-Few) H 01/04/18 20:29 Consult Discharge Plan - Plan Referrals: Micheal Dickerson DO [Primary Care Provider] - 01/28/18 4:30 pm <Anders Greene - Last Filed: 01/05/18 16:23> Date of Encounter: 01/05/18 Assessment and Plan (1) CVA (cerebral vascular accident) Current Visit: Yes Status: Acute Patient seen and examined. Case discussed and images studies reviewed with Dr. Dillon Bates and i agree with his history taking, physical examination, assessment and plan. [facility], this is a 62 year old woman with PMH significant for HTN, COPD, DM, obesity, new found lung cancer with liver metastasis, who developed one week history of confusion and not acting right. her sister and daughter were interviewed as well. and they relate that the patient was not acting right and was confused since the last week. She was recently found to have lung cancer to the live and bones. She has no focal weakness. She was ordered an MRI of brain which review acute tiny punctuate cerebral infarct at the right posterior parietal white matter. neurologist was consulted for acute stroke management. She was consulted by oncology. Patient currently has no focal neurological deficits. She is still disoriented but no agitation and she lays in bed quietly no apparent distress. Denies headaches. She was found to have hyperglycemia and elevated ammnia level as well. It it my opinion that the acute punctuate infarct is likely the result of microembolic infarct in the setting of significant hyperglycemia or lacunar infarct secondary to small vessel etiology. Microembolic event also can occur in the setting of malignancy resulting in hypercoagulability. the size of the stroke is so small and it should be responsible for the patients symptoms of confusion. She is likely encephalopathic secondary to multiple medical conditions. Will recommend stroke work up in the form of echocardiography and carotid artery duplex study. Start her on Aspirin 81mg daily if no contraindication is present. Statin therapy for hyperlipidemia if indicated. Please continue medical and supportive. Total tiime spend on this patient is >50 minutes Qualifiers: CVA mechanism: unspecified Qualified Code(s): I63.9 - Cerebral infarction, unspecified History of Present Illness HPI: Ms. Gracia is a 62 year old female All Systems: The remainder of the systems were reviewed and are negative Physical Examination - Vital Signs Vital Signs: Initial Vital Signs Temp Pulse Resp BP Pulse Ox 97.4 F L 95 18 163/77 92 01/04/18 17:34 01/04/18 17:34 01/04/18 17:34 01/04/18 17:34 01/04/18 17:34 - Neurologic Sensorimotor examination: intact Results - Laboratory Findings CBC and BMP: 01/04/18 18:28 01/04/18 18:28 Abnormal lab findings: Abnormal lab results Hct 34.3 % (35.3-44.9) L 01/04/18 18:28 RDW 15.6 % (11.5-14.5) H 01/04/18 18:28 Neutrophils # 9.1 K/mcL (1.6-8.9) H 01/04/18 18:28 Lymphocytes # 0.3 K/mcL (0.6-4.6) L 01/04/18 18:28 APTT 22.4 Seconds (26.0-36.0) L 01/04/18 18:28 Chloride 97 mEq/L (98-107) L 01/04/18 18:28 BUN 31 mg/dL (8-23) H 01/04/18 18:28 BUN/Creatinine Ratio 34 (6-26) H 01/04/18 18:28 Glucose 539 mg/dL (70-105) H* 01/04/18 18: POC Glucose 398 mg/dL (70-99) H 01/05/18 07:45 Calculated Osmolality 317 (280-300) H 01/04/18 18: Calcium 8.4 mg/dL (8.6-10.3) L 01/04/18 18: Magnesium 1.5 mg/dL (1.6-2.6) L 01/04/18 18: Direct Bilirubin 0.3 mg/dL (0.0-0.2) H 01/04/18 18:28 ALT 64 Units/L (7-52) H 01/04/18 18:28 Alkaline Phosphatase 230 Units/L (34-104) H 01/04/18 18: Ammonia 56 mcmol/L (16-53) H 01/05/18 01:02 Serum Total Protein 5.2 g/dL (6.4-8.9) L 01/04/18 18: Albumin 3.1 g/dL (3.5-5.7) L 01/04/18 18:28 Globulin 2.1 g/dL (2.4-3.5) L 01/04/18 18:28 Beta-Hydroxybutyric Acd > 2.00 mmol/L (0.02-0.27) H 01/04/18 18:20 Ur Specific [place] > 1.030 (1.010-1.025) H 01/04/18 20:29 Urine Glucose (UA) >=1000 mg/dL (Normal) H 01/04/18 20:29 Urine Ketones 15 mg/dL (Negative) H 01/04/18 20:29 Urine Blood Trace (Negative) H 01/04/18 20:29 Ur Squamous Epith Cells Many per lpf (None-Few) H 01/04/18 20:29
--- NOTE | 2018-01-05 16:25 | Internal Med Progress Note ---
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 ABD/pelvis CT showed innumerable hepatic hypodensities and bilateral adrenal masses are most consistent with metastatic disease. MRI of lumbar region suspicious for mets to the spine. Evaluated by pulmonology who is recommending endobronchial ultrasound with fine-needle aspiration or this can presented to early part of next week given the interventional pump installer is not available reported procedure until that time. Evaluated by oncology who is recommending liver biopsy. Keep NPO at midnight, liver bx planned in the am. Discussed with family at bedside and they are considering transfer to [facility] however would like to be seen by oncology here. Will readdress transfer to [facility] versus repeat imaging and treatment here at [facility] (2) Acute metabolic encephalopathy Current Visit: Yes Status: Acute Assessment and plan: suspect acute metabolic encephalopathy osseous factorial with new acute CVAs, likely new cancer diagnosis and ammonia level. Continue treating underlying causes. Supportive care for now. (3) CVA (cerebral vascular accident) Current Visit: Yes Status: Acute Assessment and plan: presented with acute confusion. Head CT unremarkable. Brain MRI showed multiple tiny infarcts to left occipital lobe. TTE, lateral carotid Dopplers pending. We will likely start ASA once liver biopsy completed. Neurology following. Qualifiers: CVA mechanism: unspecified Qualified Code(s): I63.9 - Cerebral infarction, unspecified (4) Transaminitis Current Visit: Yes Status: Acute Assessment and plan: Mild transaminitis. ALT = 64, ALk Phos= 230. Likely 2/2 mets to the liver. Repeat LFTs pending (5) Hyperammonemia Current Visit: Yes Status: Acute Assessment and plan: Likely 2/2 to liver mets. Ammonia level 56; see one-time dose lactulose. Repeat ammonia level in a.m. (6) Diabetes type 2, uncontrolled Current Visit: Yes Status: Chronic Assessment and plan: per hx. Appears uncontrolled. Wean home oral hypoglycemics. Start long acting daily at bedtime. SSI. Monitor blood sugars and titrate PRN. Hgb A1c pending Qualifiers: Diabetes mellitus moth exterminator insulin use: with fdc use Diabetes mellitus complication status: with circulatory complication Diabetes mellitus complication detail: with other circulatory complications Qualified Code(s): E11.59 - Type 2 diabetes mellitus with other circulatory complications; E11.65 - Type 2 diabetes mellitus with hyperglycemia; Z79.4 - [facility]CI (current) use of insulin (7) Wounds, multiple open, lower extremity Current Visit: Yes Status: Acute Assessment and plan: present on admission. Wound care consult. Qualifiers: Encounter type: initial encounter Laterality: left Qualified Code(s): S81.802A - Unspecified open wound, left lower leg, initial encounter (8) DVT prophylaxis Current Visit: Yes Status: Acute Assessment and plan: Heparin - Time Spent With Patient Total time spent is greater than 50% in coordination of care (as documented) at patient's floor/unit and/or counseling patient: - Subjective Interval history: Seen and examined at bedside. Patient is new to me, information obtained mostly from chart review and daughter at bedside as patient is alert to self only and unable to provide details. She only confuse what answer some yes no questions. Appears neurologically intact. Discussed case with daughter and she would like to stay here at [facility] at this time. We will decide on transfer to [facility] for second opinion after discussion with oncology. - Constitutional Vitals: Temp Pulse Resp BP Pulse Ox 98.6 F 101 17 153/80 97 01/05/18 15:42 01/05/18 15:42 01/05/18 15:42 01/05/18 15:42 01/05/18 15:42 General appearance: Present: A&O X 1, morbidly obese, no acute distress - Head Head exam: Present: atraumatic, normocephalic - Eye Eye exam: Present: PERRL, conjuntiva pink, sclera anicteric Pupils: Present: PERRL - Neck Neck exam general surgery: Present: supple, trachea midline. Absent: lymphadenopathy - Respiratory Respiratory exam: Present: CTAB. Absent: accessory muscle use, rales, rhonchi, wheezes - Cardiovascular Cardiovascular exam: Present: RRR, +S1, +S2. Absent: diastolic murmur, gallop, rubs, systolic murmur - GI/Abdominal GI/Abdominal exam: Present: normal bowel sounds, soft, no peritoneal signs. Absent: distended, tenderness - Extremities Exam Extremities exam: Present: pedal edema, warm, radial pulses palpable and symmetrical. Absent: calf tenderness, cyanotic Additional comments: Lower extremity edema with multiple lesions to lower extremities. - Neurological Exam Neurological exam: Present: CN II-XII intact, oriented X3, no focal deficits. Absent: pronater drift, facial droop, speech deficit - Skin Skin exam: Present: dry, intact Internal Medicine: Result - Labs CBC & Chem 7: 01/04/18 18:28 01/04/18 18:28 - ABG Interpretation ABG results: PT/INR, D-dimer PT 11.2 Seconds (9.4-12.1) 01/04/18 18:28 Consult Discharge Plan - Plan Referrals: Micheal Dickerson DO [Primary Care Provider] - 01/28/18 4:30 pm
--- NOTE | 2018-01-05 17:19 | Oncology Inp Consult Note ---
<Ramya Albert L - Last Filed: 01/06/18 10:34> Date of Encounter: 01/05/18 Time of Encounter: 15:00 Assessment and Plan (1) Altered mental status Status: Acute Assessment and plan: Acute, worsening over past week with confusion, bowel/bladder incontinence, asterixis MRI brain reveals tiny foci of suspected restricted diffusion in right centrum semiovale white matter and left occipital lobe, likely tiny acute infarcts. Lumbar MRI reveals multifocal multi level osseous lesions throughout the thoracic and lumbar spine, no abnormal signal in the cord and no gross compression of the cauda equina, moderate canal stenosis at L4-5 where there is grade 1 anterolisthesis, spondylolysis, and associated degenerative changes, L5- S1 central/right paracentral disc protrusion impinges upon traversing right S1 nerve root. Reviewed neurology note, appreciate recommendations. Differential included metabolic encephalopathy vs. intracranial infarction, vs. brain metasisis. Suspect metabolic encephalopathy component secondary to liver metastases and elevated ammonia level on admission (since improved). Lactic acid normal. UA normal. NO leukocytosis. Qualifiers: Altered mental status type: transient alteration of awareness Qualified Code(s): R40.4 - Transient alteration of awareness (2) Mass of middle lobe of right lung Status: Acute Assessment and plan: Imaging report reviewed from [facility] as detailed in HPI, concerning for potential lung primary (among others) with metastases to liver, bilateral adrenals, mediastinal/right hilar lymphadenopathy, multifocal multi level osseous lesions throughout the thoracic and lumbar spine. 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 Discussed options for next steps which may include less aggressive options with no biopsy and consult with palliative care team for hospice or more aggressive treatment approach which would include liver biopsy and further discussion on treatment options. Patient is not likely a good candidate for chemotherapy, although she may be a candidate for immunotherapy, options for treatment are likely limited but dependent upon final pathology report. Patients sister understands the above, states that she knows her sister would want to have the biopsy and to discuss treatment options. Patient does not have POA, sister has assumed care of her recently, patient also has a daughter of which the sister has a close relationship with and will update her on our discussion today. Patients sister understands that patient has an incurable malignancy, which appears to be of aggressive nature and treatment intent would be palliative. She wishes patient to undergo biopsy. Will order biopsy liver, further treatment options will be discussed following final pathology results. Check LDH. Alk phos elevated at 230 Electrolyte abnormalities-management per primary team Patients sister-Sandra Charles [phone], cell [phone] Schroeder's attestation below for additional details. - Data of Consult Patient: new to practice Consult date: 01/05/18 Requesting Physician: Pablo Thompson MD Primary Care Provider: Zuly Tavares - Consult Narrative Reason for consult: Metabolic encephalopathy, lung mass with metastatic disease History of present illness: Ms. Gracia is a 62 year old female with past medical history significant for medical history significant for hypertension, diabetes insulin-dependent with complications of multiple rate total amputation, COPD non-oxygen dependent, and newly diagnosed at [facility] right lung mass with metastatic disease ( last week) who presented to the ED after patient saw her PCP with AMS and low potassium. Patient is confused and only able to state her location at [place]. Patients sister is at bedside and history obtained by sister. Patients sister states up until 2 weeks ago patient was active and able to babysit her grandchildren and care for her handicapped son. Over the past week she has become progressively confused, experienced nausea/vomiting, loss of bowel/bladder control, experiences increased weakness and has been unable to walk for about one week. She presented to her PCP who recommended ER visit. Review of records from [place] on 12/30/[address] abdomen/pelvis/chest with findings of 2.6 cm right middle lobe mass with mediatinal and right hilar adenopathy high suspicious for bronchogenic carcinoma with qi metastatic disease, along with innumerable hepatic hypodensities and bilateral adrenal masses consistent with metastatic disease. In the ED, imaging studies were obtained and CT head unremarkable, chest x-ray negative, MRI of brain showed showed tiny foci of suspected restricted diffusion in the right centrum semi-ovale white matter and left occipital lobe likely to present tiny acute infarcts. MRI of the lumbar and thoracic spine showed multi-level osseous lesions throughout the spine suspicious for metastatic disease with no evidence of compression of the spinal cord and moderate canal stenosis at L4-L5 as well as L5-S1 central/right paracentral disc protrusion impinging on the right S1 nerve root. Abnormal labs: Glucose = 539 no anion gap, Alk phos 230, Ammonia 56, and UA was negative. Patient was admitted to the floor for metabolic encephalopathy. Ms. Gracia has smoked since the age of 14, at most about 3 PPD. She has a history of melanoma, details unclear but was apparently fully resected. Past Med Surg Social Fam HX - Past Medical History Medical history: arthritis, cancer, COPD, diabetes, hypertension, other Additional medical history: Lung. Liver METS Psychiatric history: anxiety, depression - Past Surgical History Surgical History: , cancer surgery, cataract, cholecystectomy, hysterectomy, other Additional surgical history: toe removal - Social History Smoking Status: Former smoker Smokeless Tobacco Status: Yes Alcohol use: none Drug use: none Medications and Allergies Albiglutide [Tanzeum] 15 mg SQ QWEEK 06/24/16 [History] Atorvastatin Calcium [Lipitor] 80 mg PO DAILY 06/24/16 [History] BuPROPion SR (12 HR) [Wellbutrin SR] 200 mg PO BID 06/24/16 [History] Cyclobenzaprine [Flexeril] 10 mg PO HS 06/24/16 [History] Gabapentin [Neurontin] 600 mg PO HS 06/24/16 [History] GlipiZIDE [Glipizide Xl] 5 mg PO BID 06/24/16 [History] Montelukast [Singulair] 10 mg PO DAILY 06/24/16 [History] Sertraline [Zoloft] 100 mg PO DAILY 06/24/16 [History] TraZODone 75 mg PO HS 06/24/16 [History] metFORMIN [Glucophage] 1,000 mg PO BID 06/24/16 [History] Meloxicam [Meloxicam] 15 mg PO DAILY 01/05/18 [History] Valsartan [Valsartan] 160 mg PO DAILY 01/05/18 [History] 3 Allergy/AdvReac Type Severity Reaction Status Date / Time Sulfa (Sulfonamide Allergy Hives Verified 06/24/16 01:33 Antibiotics) ROS unobtainable: due to mental status Review of systems: ROS unobtainable as patient is confused, ROS and history obtained from patients sister-refer to [facility] Oncology - Exam - Constitutional Vitals: Temp Pulse Resp BP Pulse Ox 98.6 F 101 17 153/80 97 01/05/18 15:42 01/05/18 15:42 06/12/18 15:42 01/05/18 15:42 01/05/18 15:42 General appearance: cooperative, no acute distress, obese, no febrile - Head Head exam: Present: atraumatic - Eye Eye exam: Present: PERRL - ENT ENT exam: Present: mucous membranes moist - Respiratory Respiratory exam: Present: CTAB. Absent: respiratory distress - Cardiovascular Cardiovascular exam: Present: RRR, +S1, +S2 - GI/Abdominal GI/Abdominal exam: Present: normal bowel sounds, soft. Absent: guarding, rebound, tenderness - Extremities Exam Extremities exam: Present: pedal edema. Absent: calf tenderness - Neurological Exam Neurological exam: Present: alert, no focal deficits, strengths equal and symetr throughout Additional comments: able to follow commands, marked bilateral asterixis, oriented to place only - Psychiatric Psychiatric exam: Present: flat affect - Skin Skin exam: Present: dry, intact, normal color, warm Oncology - Results Labs: 3 01/05/18 01/05/18 01/05/18 16:47 12:18 07:45 POC Glucose 392 H 320 H 398 H 3 01/05/18 01/05/18 01/05/18 07:44 05:58 05:57 POC Glucose 417 H* 406 H* 418 H* Consult Discharge Plan - Plan Referrals: Micheal Dickerson DO [Primary Care Provider] - 01/28/18 4:30 pm <Salvatore Schroeder - Last Filed: 01/07/18 10:17> Date of Encounter: 01/05/18 - Data of Consult Requesting Physician: Pablo Thompson MD Primary Care Provider: Zuly Tavares - Consult Narrative History of present illness: Ms. Gracia is a 62 year old female Oncology - Exam - Constitutional Vitals: Temp Pulse Resp BP Pulse Ox 97.7 F 88 14 175/91 97 01/07/18 06:40 01/07/18 06:40 01/07/18 06:40 01/07/18 06:40 01/07/18 06:40 Oncology - Results Labs: 3 01/07/18 01/07/18 01/07/18 06:44 05:43 03:34 WBC 8.4 RBC 3.85 Hgb 11.6 Hct 33.7 L MCV 87.5 MCH 30.1 MCHC 34.4 RDW 15.4 H Plt Count 155 MPV 10.7 Immature Gran % Seg Neutrophils % Lymphocytes % Monocytes % Eosinophils % Basophils % Neutrophils # Lymphocytes # Monocytes # Eosinophils # Basophils # Sodium Potassium Chloride Carbon Dioxide BUN Creatinine Est GFR ( Amer) Est GFR (Non-Af Amer) BUN/Creatinine Ratio Glucose POC Glucose 309 H 326 H Est Mean Plasma Glucose Hemoglobin A1c Calculated Osmolality Calcium Phosphorus Magnesium Ammonia Lactate Dehydrogenase 3 01/07/18 01/07/18 01/06/18 00:13 00:12 17:41 WBC RBC Hgb Hct MCV MCH MCHC RDW Plt Count MPV Immature Gran % Seg Neutrophils % Lymphocytes % Monocytes % Eosinophils % Basophils % Neutrophils # Lymphocytes # Monocytes # Eosinophils # Basophils # Sodium Potassium Chloride Carbon Dioxide BUN Creatinine Est GFR ( Amer) Est GFR (Non-Af Amer) BUN/Creatinine Ratio Glucose POC Glucose 451 H* 462 H* 250 H Est Mean Plasma Glucose Hemoglobin A1c Calculated Osmolality Calcium Phosphorus Magnesium Ammonia Lactate Dehydrogenase 3 01/06/18 01/06/18 01/06/18 13:57 11:43 05:34 WBC RBC Hgb Hct MCV MCH MCHC RDW Plt Count MPV Immature Gran % Seg Neutrophils % Lymphocytes % Monocytes % Eosinophils % Basophils % Neutrophils # Lymphocytes # Monocytes # Eosinophils # Basophils # Sodium Potassium Chloride Carbon Dioxide BUN Creatinine Est GFR ( Amer) Est GFR (Non-Af Amer) BUN/Creatinine Ratio Glucose POC Glucose 199 H 232 H Est Mean Plasma Glucose Hemoglobin A1c Calculated Osmolality Calcium Phosphorus Magnesium 2.0 Ammonia Lactate Dehydrogenase 3 01/06/18 01/06/18 01/06/18 04:58 04:58 04:58 WBC RBC Hgb Hct MCV MCH MCHC RDW Plt Count MPV Immature Gran % Seg Neutrophils % Lymphocytes % Monocytes % Eosinophils % Basophils % Neutrophils # Lymphocytes # Monocytes # Eosinophils # Basophils # Sodium Potassium Chloride Carbon Dioxide BUN Creatinine Est GFR ( Amer) Est GFR (Non-Af Amer) BUN/Creatinine Ratio Glucose POC Glucose Est Mean Plasma Glucose 240 Hemoglobin A1c 10.0 H Calculated Osmolality Calcium Phosphorus Magnesium Ammonia 44 Lactate Dehydrogenase 386 H 3 01/06/18 01/06/18 01/06/18 04:58 04:58 02:08 WBC 9.8 RBC 3.53 L Hgb 10.5 L Hct 30.8 L MCV 87.3 MCH 29.7 MCHC 34.1 RDW 15.7 H Plt Count 184 MPV 10.5 Immature Gran % 2.4 Seg Neutrophils % 87.3 Lymphocytes % 3.4 Monocytes % 6.7 Eosinophils % 0.0 Basophils % 0.2 Neutrophils # 8.6 Lymphocytes # 0.3 L Monocytes # 0.7 Eosinophils # 0.0 Basophils # 0.0 Sodium 140 Potassium 3.1 L Chloride 102 Carbon Dioxide 32 H BUN 18 Creatinine 0.66 Est GFR ( Amer) > 60 Est GFR (Non-Af Amer) > 60 BUN/Creatinine Ratio 27 H Glucose 249 H POC Glucose 337 H Est Mean Plasma Glucose Hemoglobin A1c Calculated Osmolality 300 Calcium 7.8 L Phosphorus 2.2 L Magnesium 1.3 L Ammonia Lactate Dehydrogenase 3 01/05/18 01/05/18 01/05/18 23:43 23:42 16:47 WBC RBC Hgb Hct MCV MCH MCHC RDW Plt Count MPV Immature Gran % Seg Neutrophils % Lymphocytes % Monocytes % Eosinophils % Basophils % Neutrophils # Lymphocytes # Monocytes # Eosinophils # Basophils # Sodium Potassium Chloride Carbon Dioxide BUN Creatinine Est GFR ( Amer) Est GFR (Non-Af Amer) BUN/Creatinine Ratio Glucose POC Glucose 407 H* 413 H* 392 H Est Mean Plasma Glucose Hemoglobin A1c Calculated Osmolality Calcium Phosphorus Magnesium Ammonia Lactate Dehydrogenase 3 01/05/18 01/05/18 01/05/18 12:18 07:45 07:44 WBC RBC Hgb Hct MCV MCH MCHC RDW Plt Count MPV Immature Gran % Seg Neutrophils % Lymphocytes % Monocytes % Eosinophils % Basophils % Neutrophils # Lymphocytes # Monocytes # Eosinophils # Basophils # Sodium Potassium Chloride Carbon Dioxide BUN Creatinine Est GFR ( Amer) Est GFR (Non-Af Amer) BUN/Creatinine Ratio Glucose POC Glucose 320 H 398 H 417 H* Est Mean Plasma Glucose Hemoglobin A1c Calculated Osmolality Calcium Phosphorus Magnesium Ammonia Lactate Dehydrogenase 3 01/05/18 01/05/18 05:58 05:57 WBC RBC Hgb Hct MCV MCH MCHC RDW Plt Count MPV Immature Gran % Seg Neutrophils % Lymphocytes % Monocytes % Eosinophils % Basophils % Neutrophils # Lymphocytes # Monocytes # Eosinophils # Basophils # Sodium Potassium Chloride Carbon Dioxide BUN Creatinine Est GFR ( Amer) Est GFR (Non-Af Amer) BUN/Creatinine Ratio Glucose POC Glucose 406 H* 418 H* Est Mean Plasma Glucose Hemoglobin A1c Calculated Osmolality Calcium Phosphorus Magnesium Ammonia Lactate Dehydrogenase - Attending Attestation Seen and examined patient and agree with assessment and plan. Patient likely has widely metastatic cancer. She has h/o melanoma. However, her significant smoking in history also potentially suggests metastatic lung cancer. Her Mental status change is likely a paraneoplastic manifestation of the metastatic cancer. Therefore, SCLC could be a distinct possibility. If so , then urgent treatment would go far to help improving her mental status. Dee for U/S guided bx of the liver.
--- NOTE | 2018-01-05 18:36 | Electrocardiograph Report ---
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
[2018-01-05] MEDS: Insulin DETEMIR 100 UNIT/ML X5UNITS SQ SCH (21:44)
[2018-01-05] MEDS: BuPROPion SR (12 HR) 100 MG TABLET PO SCH (21:44)
[2018-01-06] MEDS: *HR* Heparin 5,000 UNIT/ML VIAL SQ SCH (00:09)
[2018-01-06] MEDS: Insulin LISPRO 300 UNITS/3 ML VIAL SQ SCH ×4 (00:10→17:56)
[2018-01-06] MEDS: Ipratropium/Albuterol Neb 3 ML IH SCH ×4 (03:31→21:46)
[2018-01-06 05:31] LABS: Basophils % 0.2 %; Hematocrit 30.8 % (35.3-44.9); Hemoglobin 10.5 g/dL (11.5-15.4); Immature Granulocytes % 2.4 % (0-4); Lymphocytes # 0.3 K/mcL (0.6-4.6); Lymphocytes % 3.4 %; Mean Corpuscular HGB Conc 34.1 g/dL (31.6-35.5); Mean Corpuscular Hemoglobin 29.7 pg (28.0-33.3); Mean Corpuscular Volume 87.3 fL (83.0-100.0); Mean Platelet Volume 10.5 fL (9.4-12.4); Monocytes # 0.7 K/mcL (0.0-1.3); Monocytes % 6.7 %; Neutrophils # 8.6 K/mcL (1.6-8.9); Platelet Count 184 K/mcL (140-400); Red Blood Count 3.53 M/mcL (3.82-4.97); Red Cell Distribution Width 15.7 % (11.5-14.5); Segmented Neutrophils % 87.3 %
[2018-01-06 05:33] LABS: BUN/Creatinine Ratio 27 (6-26); Blood Urea Nitrogen 18 mg/dL (8-23); Calcium 7.8 mg/dL (8.6-10.3); Carbon Dioxide 32 mEq/L (23-29); Chloride 102 mEq/L (98-107); Glucose 249 mg/dL (70-105); Magnesium 1.3 mg/dL (1.6-2.6); Osmolality,Calculated 300 (280-300); Phosphorous 2.2 mg/dL (2.7-4.5); Potassium 3.1 mEq/L (3.5-5.1); Sodium 140 mEq/L (136-145); eGFR For African Americans > 60 (> 60); eGFR For Non-African Americans > 60 (> 60)
[2018-01-06] MEDS: 0.9 % Sodium Chloride 1,000 ML IVC SCH ×2 (05:34→17:57)
[2018-01-06 08:13] LABS: Estimated Average Glucose 240 mg/dl
[2018-01-06] MEDS: Valsartan 160 MG TABLET PO SCH (09:39)
[2018-01-06] MEDS: BuPROPion SR (12 HR) 100 MG TABLET PO SCH ×2 (09:39→20:59)
--- NOTE | 2018-01-06 15:40 | IR Procedure Note ---
Date of procedure: 01/06/18 Consent Obtained: Written consent Timeout: Correct patient and procedure verified, Correct site verified, Time out performed, Skin prep completed Indications: liver mets Procedure Performed: liver biopsy Was there an financial planning assistant present: No Site/Technique: lt lobe, 18G gun Results/Findings: positive Estimated blood loss (cc): 0 Complications: None; Tolerated procedure well Post Procedure Treatment Plan: dc to floor Specimen: 4 18G cores liver
--- NOTE | 2018-01-06 16:14 | Neurology Progress Note ---
Date of Encounter: 01/06/18 Time of Encounter: 16:12 Assessment and Plan (1) CVA (cerebral vascular accident) Current Visit: Yes Status: Acute Patient developed tiny punctuate ischemic infarct at the right parietal lobe white matter, could be related to microembolic phenomenon secondary to hyperglycemia or small vesel lacunar infarct. Appears asymptomatic. Echocardiography showed no significant pathology and no source of emboli identified. Carotid artery duplex showed bilateral 60-79% bilateral ICA stnosis and this is likely incidental finding and not related to her current ischemic infarct therefore i would not recommend further investigation at this time but this certainly needs annual monitoring in the form of carotid artery duplex. She can benefit from the use of aspirin 81mg daily if no contraindication is present. Stroke work up is complete, Will sign off at this time please call if any questions. Qualifiers: CVA mechanism: unspecified Qualified Code(s): I63.9 - Cerebral infarction, unspecified Subjective Principal diagnosis: CVA Interval history: Patient seen and examined. Patient's mental status seems stable and improved and no new neurological complaints. Patient completed echocardiography which demonstrated normal LVEF, no regional wall motion abnormality, no PFO and no significant valvular abnormality. carotid artery duplex showed 60-79% bilateral ICA stenosis. She just came back from liver biopsy and uses mask for inhaler treatment. She has fluent speech. her speech appears fluent. Follow commands well Objective - Constitutional Vitals: Temp Pulse Resp BP Pulse Ox 97.6 F 99 17 149/68 98 01/06/18 11:38 01/06/18 11:38 01/06/18 11:38 01/06/18 11:38 01/06/18 11:38 - Neurological Exam Sensorimotor examination: Present: intact Motor Examination: Present: grossly full strength in all extremities, full strength in all major muscle groups Motor examination - right side: 5/5: deltoids, biceps, triceps, wrist flexion, wrist extension, limo driver, hip flexors, tibialis Anterior, quadriceps, toe extension (EHL), plantarflexion Motor examination - left side: 5/5: deltoids, biceps, triceps, wrist flexion, wrist extension, hip flexors, limo driver, quadriceps, tibialis Anterior, toe extension (EHL), plantarflexion Sensation intact: Present: intact, light touch Posture: Present: other (None) Reflex and gait examination: other (Gait not assessed) Reflexes: Biceps: 1+, Triceps: 1+, Brachioradialis: 1+, Patella: 1+, Achilles: 1 + Mental Status Examination: Present: awake, alert, oriented to person, oriented to place, oriented to time, follows commands appropriately, answers questions appropriately, no agnosia, no aphasia, no aproxia Cranial nerve examination: Present: PERRL, EOMI, visual bustos intact, sensory to face intact, no facial asymmetry is present, no dysarthria, hearing is intact symmetrically, soft palate elevates bilaterally upon phonation, flexes SCM and trapezius muscles symmetrically with full power, tongue protrudes midline, no atrophy or facial fasiculations present Cerebellar examination: Present: no dysmetria, performs finger to nose and heel to gallagher symmetrically without ataxia Results - Laboratory Findings CBC and BMP: 01/06/18 04:58 01/06/18 04:58 Abnormal lab findings: Abnormal lab results RBC 3.53 M/mcL (3.82-4.97) L 01/06/18 04:58 Hgb 10.5 g/dL (11.5-15.4) L 01/06/18 04:58 Hct 30.8 % (35.3-44.9) L 01/06/18 04:58 RDW 15.7 % (11.5-14.5) H 01/06/18 04:58 Lymphocytes # 0.3 K/mcL (0.6-4.6) L 01/06/18 04:58 APTT 22.4 Seconds (26.0-36.0) L 01/04/18 18:28 Potassium 3.1 mEq/L (3.5-5.1) L 01/06/18 04:58 Carbon Dioxide 32 mEq/L (23-29) H 01/06/18 04:58 BUN/Creatinine Ratio 27 (6-26) H 01/06/18 04:58 Glucose 249 mg/dL (70-105) H 01/06/18 04:58 POC Glucose 337 mg/dL (70-99) H 01/06/18 02:08 Hemoglobin A1c 10.0 % (-5.6) H 01/06/18 04:58 Calcium 7.8 mg/dL (8.6-10.3) L 01/06/18 04:58 Phosphorus 2.2 mg/dL (2.7-4.5) L 01/06/18 04:58 Direct Bilirubin 0.3 mg/dL (0.0-0.2) H 01/04/18 18:28 ALT 64 Units/L (7-52) H 01/04/18 18:28 Alkaline Phosphatase 230 Units/L (34-104) H 01/04/18 18:28 Lactate Dehydrogenase 386 Units/L (140-271) H 01/06/18 04:58 Serum Total Protein 5.2 g/dL (6.4-8.9) L 01/04/18 18:28 Albumin 3.1 g/dL (3.5-5.7) L 01/04/18 18:28 Globulin 2.1 g/dL (2.4-3.5) L 01/04/18 18:28 Beta-Hydroxybutyric Acd > 2.00 mmol/L (0.02-0.27) H 01/04/18 18:20 Ur Specific [place] > 1.030 (1.010-1.025) H 01/04/18 20:29 Urine Glucose (UA) >=1000 mg/dL (Normal) H 01/04/18 20:29 Urine Ketones 15 mg/dL (Negative) H 01/04/18 20:29 Urine Blood Trace (Negative) H 01/04/18 20:29 Ur Squamous Epith Cells Many per lpf (None-Few) H 01/04/18 20:29 - Diagnostic Findings Additional findings: EV/EV echocardiogram Impressions: LVEF 65-70%. Mild concentric left ventricular hypertrophy. Indeterminate diastolic function. Normal right ventricular structure and function. No significant valvular dysfunction. No pulmonary hypertension. No evidence of PFO with agitated saline contrast. Impressions: The right internal carotid artery has 60-79% stenosis. Mahnza The left internal carotid artery has a 6079% stenosis. Recommendations: Risk factor reduction. Further evaluation recommended if clinically indicated. Repeat study in 1 year. Findings Carotid Duplex: Right: The right proximal common carotid artery has a PSV of 97 cm/s and a EDV of 10 cm/s. The right mid common carotid artery has a PSV of 70 cm/s and a EDV of 3 cm/s. The right distal common carotid artery has a PSV of 49 cm/s. There is nonstenotic plaque in the right bifurcation with a PSV of 34 cm/s and a EDV of 8 cm/s. There is irregular heterogeneous plaque. There is nonstenotic plaque in the right proximal internal carotid artery with a PSV of 49 cm/s and a EDV of 11 cm/s. There is irregular heterogeneous plaque. There is 60-79% stenosis in the right mid internal carotid artery with a PSV of 273 cm/s and a EDV of 41 cm/s. There is irregular heterogeneous plaque. There is 60-79% stenosis in the right distal internal carotid artery with a PSV of 174 cm/s and a EDV of 40 cm/s. There is irregular heterogeneous plaque. There is nonstenotic plaque in the right eca with a PSV of 152 cm/s and a EDV of 18 cm/s. There is irregular heterogeneous plaque. The right vertebral artery has a PSV of 52 cm/s and a EDV of 8 cm/s. MID/DISTAL ICA VERY TORTUOUS. LITTLE TO NO DIASTOLIC FLOW IN CCA. Left: The left proximal common carotid artery has a PSV of 71 cm/s and a EDV of 3 cm/s. The left mid common carotid artery has a PSV of 57 cm/s and a EDV of 3 cm/s. The left distal common carotid artery has a PSV of 66 cm/s and a EDV of 6 cm/s. There is nonstenotic plaque in the left bifurcation with a PSV of 57 cm/s and a EDV of 8 cm/s. There is irregular heterogeneous plaque. The left proximal internal carotid artery has a PSV of 57 cm/s and a EDV of 11 cm/s. There is 60-79% stenosis in the left mid internal carotid artery with a PSV of 190 cm/s and a EDV of 41 cm/s. There is irregular heterogeneous plaque. There is nonstenotic plaque in the left distal internal carotid artery with a PSV of 86 cm/s and a EDV of 9 cm/s. There is irregular heterogeneous plaque. There is nonstenotic plaque in the left eca with a PSV of 131 cm/s and a EDV of 3 cm/s. There is irregular heterogeneous plaque. The left vertebral artery has a PSV of 110 cm/s. MID/DISTAL ICA VERY TORTUOUS. LITTLE TO NO DIASTOLIC FLOW IN CCA. Prior Study: No prior study available for comparison. PRELIM REPORT IN [facility]. Carotid Results Right PSV EDV Assessment Proximal CCA 97 10 Normal Mid CCA 70 3 Normal Distal CCA 49 0 Normal Bifurcation 34 8 Non Stenotic Plaque Proximal ICA 49 11 Non Stenotic Plaque Mid ICA 273 41 60-79% stenosis Distal ICA 174 40 60-79% stenosis ECA 152 18 Non Stenotic Plaque Vertebral Artery 52 8 Normal Left PSV EDV Assessment Proximal CCA 71 3 Normal Mid CCA 57 3 Normal Distal CCA 66 6 Normal Bifurcation 57 8 Non Stenotic Plaque Proximal ICA 57 11 Normal Mid ICA 190 41 60-79% stenosis Distal ICA 86 9 Non Stenotic Plaque ECA 131 3 Non Stenotic Plaque Vertebral Artery 110 0 Normal Ratio's Right ICA/CCA Ratio: 2.80 ICA/CCA Values: 273/97 Left ICA/CCA Ratio: 2.70 ICA/CCA Values: 190/71 Updated by Melo Burkett MD on 01/06/2018 6:30:22 AM electronically signed on 01/06/2018 6:31:02 AM with status of Final Consult Discharge Plan - Plan Referrals: Micheal Dickerson DO [Primary Care Provider] - 01/28/18 4:30 pm
[2018-01-06] MEDS ORDERED: Potassium Chloride Elixir 20 MEQ/15 ML UDC PO ONE (16:43)
--- NOTE | 2018-01-06 16:48 | Internal Med Progress Note ---
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 ABD/pelvis CT showed innumerable hepatic hypodensities and bilateral adrenal masses are most consistent with metastatic disease. MRI of lumbar region suspicious for mets to the spine. Evaluated by oncology who noted symptoms of likely consistent with stage IV malignancy most likely lung primary. S/p liver biopsy on 01/06; pathology pending. (2) Acute metabolic encephalopathy Current Visit: Yes Status: Acute Assessment and plan: suspect acute metabolic encephalopathy osseous factorial with new acute CVA, elevated ammonia level and underling malignancy. Continue treating underlying causes. Supportive care for now. Mentation appears slightly improved on 01/06 exam (3) CVA (cerebral vascular accident) Current Visit: Yes Status: Acute Assessment and plan: presented with acute confusion. Head CT unremarkable. Brain MRI showed multiple tiny infarcts to left occipital lobe. TTE with EF 65%, no evidence of PFO or cardiac source of emboli. Carotid artery duplex showed bilateral 60-79% bilateral ICA stnosis; evaluated by Neurology who suspected likely incidental finding and not related to her current ischemic infarct therefore would not recommend further investigation at this time but will need annual monitoring in the form of carotid artery duplex. Start ASA Qualifiers: CVA mechanism: unspecified Qualified Code(s): I63.9 - Cerebral infarction, unspecified (4) Transaminitis Current Visit: Yes Status: Acute Assessment and plan: Mild transaminitis. Likely secondary to liver metastasis. Intermittently monitor. (5) Hyperammonemia Current Visit: Yes Status: Acute Assessment and plan: Likely 2/2 to liver mets. Ammonia level 56; see one-time dose lactulose. Repeat ammonia level in a.m. (6) Diabetes type 2, uncontrolled Current Visit: Yes Status: Chronic Assessment and plan: per hx. Hgb A1c 10%. Holding home oral hypoglycemics. Start long acting daily at bedtime. SSI. Monitor blood sugars and titrate PRN. Qualifiers: Diabetes mellitus mcfp insulin use: with emt intermediate use Diabetes mellitus complication status: with circulatory complication Diabetes mellitus complication detail: with other circulatory complications Qualified Code(s): E11.59 - Type 2 diabetes mellitus with other circulatory complications; E11.65 - Type 2 diabetes mellitus with hyperglycemia; Z79.4 - long-term (current) use of insulin (7) Wounds, multiple open, lower extremity Current Visit: Yes Status: Acute Assessment and plan: present on admission. Wound care consult. Qualifiers: Encounter type: initial encounter Laterality: left Qualified Code(s): S81.802A - Unspecified open wound, left lower leg, initial encounter (8) DVT prophylaxis Current Visit: Yes Status: Acute Assessment and plan: Heparin - Time Spent With Patient Total time spent is greater than 50% in coordination of care (as documented) at patient's floor/unit and/or counseling patient: - Subjective Interval history: Seen and examined at bedside; she seems a bit more appropriate and alert today. Daughter at bedside and discussed treatment at [facility] versus transfer to [facility] and daughter would prefer to stay here at [facility]. - Constitutional Vitals: Temp Pulse Resp BP Pulse Ox 98 F 93 16 149/84 95 01/06/18 16:15 01/06/18 16:15 01/06/18 16:26 01/06/18 16:15 01/06/18 16:26 General appearance: Present: A&O X 1, A&O X 2, morbidly obese, no acute distress - Head Head exam: Present: atraumatic, normocephalic - Eye Eye exam: Present: PERRL, conjuntiva pink, sclera anicteric Pupils: Present: PERRL - Neck Neck exam general surgery: Present: supple, trachea midline. Absent: lymphadenopathy - Respiratory Respiratory exam: Present: CTAB. Absent: accessory muscle use, rales, rhonchi, wheezes - Cardiovascular Cardiovascular exam: Present: RRR, +S1, +S2. Absent: diastolic murmur, gallop, rubs, systolic murmur - GI/Abdominal GI/Abdominal exam: Present: normal bowel sounds, soft, no peritoneal signs. Absent: distended, tenderness - Extremities Exam Extremities exam: Present: pedal edema, warm, radial pulses palpable and symmetrical. Absent: calf tenderness, cyanotic Additional comments: bilateral lower ext edema and wounds - Neurological Exam Neurological exam: Present: CN II-XII intact, no focal deficits. Absent: pronater drift, facial droop, speech deficit - Skin Skin exam: Present: dry, intact Internal Medicine: Result - Labs CBC & Chem 7: 01/06/18 04:58 01/06/18 04:58 Labs: Short CBC 01/06/18 Range/Units 04:58 WBC 9.8 (4.3-11.1) K/mcL Hgb 10.5 L (11.5-15.4) g/dL Hct 30.8 L (35.3-44.9) % Plt Count 184 (140-400) K/mcL Neutrophils # 8.6 (1.6-8.9) K/mcL BMP 01/06/18 04:58 Sodium 140 Potassium 3.1 L Chloride 102 Carbon Dioxide 32 H BUN 18 Creatinine 0.66 Glucose 249 H Calcium 7.8 L - ABG Interpretation ABG results: PT/INR, D-dimer PT 11.2 Seconds (9.4-12.1) 01/04/18 18:28 - Impressions Impressions Echocardiogram 01/05/18 16:42 Impressions: LVEF 65-70%. Mild concentric left ventricular hypertrophy. Indeterminate diastolic function. Normal right ventricular structure and function. No significant valvular dysfunction. No pulmonary hypertension. No evidence of PFO with agitated saline contrast. Left Ventricular Wall Motion: Rest Echo Findings All wall segments showed normal motion. Findings: Study Quality * Technically adequate exam. ECG Findings * Sinus tachycardia. Left Ventricle * LVEF 65-70%. * Mild concentric left ventricular hypertrophy. * Indeterminate diastolic function. * Turbulent color flow imaging along the septum without significant gradient. Right Ventricle * Normal right ventricular structure and function. Left Atrium * Normal left atrial size. Right Atrium * Normal right atrial size. Mitral Valve * Normal mitral valve structure. * Mild mitral annular calcification * No mitral regurgitation. Aortic Valve * AR signal not well obtained. * Aortic valve not well visualized. * No aortic stenosis. Tricuspid Valve * Tricuspid valve not well visualized. * Trace tricuspid regurgitation. Pulmonic Valve * Pulmonic valve is not well visualized. * No pulmonic stenosis. * No pulmonic regurgitation. Pulmonary Artery * Pulmonary artery not well visualized. Aorta * Normally sized aortic root. Pericardium * There is no pericardial effusion present. Interatrial Septum * No evidence of PFO with agitated saline contrast. IVC * The IVC is not well evaluated. Liver Biopsy CT 01/06/18 00:00 IMPRESSION: Successful CT guided core biopsy of the liver. D/ / 01/06/2018 15:48:20 Kimmie Blair MD / [email or web address] Interpreting Provider: Kimmie Blair MD Consult Discharge Plan - Plan Referrals: Micheal Dickerson DO [Primary Care Provider] - 01/28/18 4:30 pm
[2018-01-06] MEDS: Aspirin 81 MG TAB.CHEW PO SCH (17:57)
[2018-01-06] MEDS: Insulin DETEMIR 100 UNIT/ML X5UNITS SQ SCH (20:58)
[2018-01-07] MEDS ORDERED: Prochlorperazine 10 MG/2 ML VIAL IV PRN
[2018-01-07] MEDS ORDERED: MAGNESIUM SULFATE IV SCH
[2018-01-07] MEDS ORDERED: Fosaprepitant Dimeglumine 150 MG in 0.9 % Sodium Chloride 250 ML IV SCH
[2018-01-07] MEDS ORDERED: *HR* LORazepam 2 MG/ML VIAL IV PRN
[2018-01-07] MEDS ORDERED: Dexamethasone 10 MG/ML VIAL IV PRN
[2018-01-07] MEDS ORDERED: CISPLATIN IV SCH
[2018-01-07] MEDS ORDERED: Famotidine 20 MG/2 ML VIAL IVP PRN
[2018-01-07] MEDS ORDERED: 0.9 % Sodium Chloride w KCl 20 MEQ/1,000 ML MLS IVC ONE
[2018-01-07] MEDS ORDERED: Furosemide 20 MG/2 ML VIAL IV PRN
[2018-01-07] MEDS ORDERED: SODIUM CHLORIDE 0.9% IV SCH
[2018-01-07] MEDS: Insulin LISPRO 300 UNITS/3 ML VIAL SQ SCH ×3 (01:00→11:50)
[2018-01-07] MEDS: Ipratropium/Albuterol Neb 3 ML IH SCH ×4 (03:40→21:30)
[2018-01-07] MEDS: 0.9 % Sodium Chloride 1,000 ML IVC SCH ×3 (04:47→18:49)
[2018-01-07] MEDS: *HR* Heparin 5,000 UNIT/ML VIAL SQ SCH ×3 (06:27→22:50)
[2018-01-07 07:14] LABS: Hematocrit 33.7 % (35.3-44.9); Hemoglobin 11.6 g/dL (11.5-15.4); Mean Corpuscular HGB Conc 34.4 g/dL (31.6-35.5); Mean Corpuscular Hemoglobin 30.1 pg (28.0-33.3); Mean Corpuscular Volume 87.5 fL (83.0-100.0); Mean Platelet Volume 10.7 fL (9.4-12.4); Platelet Count 155 K/mcL (140-400); Red Blood Count 3.85 M/mcL (3.82-4.97); Red Cell Distribution Width 15.4 % (11.5-14.5)
[2018-01-07] MEDS: Aspirin 81 MG TAB.CHEW PO SCH (08:59)
[2018-01-07] MEDS: Valsartan 160 MG TABLET PO SCH (08:59)
[2018-01-07] MEDS: BuPROPion SR (12 HR) 100 MG TABLET PO SCH ×2 (08:59→22:51)
--- NOTE | 2018-01-07 15:49 | Internal Med Progress Note ---
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 ABD/pelvis CT showed innumerable hepatic hypodensities and bilateral adrenal masses are most consistent with metastatic disease. MRI of lumbar region suspicious for mets to the spine. 01/06/18 Liver biopsy pathology consist with small cell; offical report pending. Oncology following and initiating chemo (2) Acute metabolic encephalopathy Current Visit: Yes Status: Acute Assessment and plan: suspect acute metabolic encephalopathy osseous factorial with new acute CVA, elevated ammonia level and underling malignancy. Continue treating underlying causes. Supportive care for now. (3) CVA (cerebral vascular accident) Current Visit: Yes Status: Acute Assessment and plan: presented with acute confusion. Head CT unremarkable. Brain MRI showed multiple tiny infarcts to left occipital lobe. TTE with EF 65%, no evidence of PFO or cardiac source of emboli. Carotid artery duplex showed bilateral 60-79% bilateral ICA stnosis; evaluated by Neurology who suspected likely incidental finding and not related to her current ischemic infarct therefore would not recommend further investigation at this time but will need annual monitoring in the form of carotid artery duplex. Start ASA Qualifiers: CVA mechanism: unspecified Qualified Code(s): I63.9 - Cerebral infarction, unspecified (4) Transaminitis Current Visit: Yes Status: Acute Assessment and plan: Mild transaminitis. Likely secondary to liver metastasis. Intermittently monitor. (5) Hyperammonemia Current Visit: Yes Status: Acute Assessment and plan: Likely 2/2 to liver mets. Ammonia level 56; see one-time dose lactulose. Repeat ammonia level in a.m. (6) Diabetes type 2, uncontrolled Current Visit: Yes Status: Chronic Assessment and plan: per hx. Hgb A1c 10%. Holding home oral hypoglycemics. Start long acting daily at bedtime. SSI. Monitor blood sugars and titrate PRN. 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 Wound care consult. Qualifiers: Encounter type: initial encounter Laterality: left Qualified Code(s): S81.802A - Unspecified open wound, left lower leg, initial encounter (8) DVT prophylaxis Current Visit: Yes Status: Acute Assessment and plan: Heparin - Time Spent With Patient Total time spent is greater than 50% in coordination of care (as documented) at patient's floor/unit and/or counseling patient: - Subjective Interval history: Seen and examined at bedside; she seems more confused today. Alert to self only. Unable to tell me where she has, date or time. No family at bedside for collateral. - Constitutional Vitals: Temp Pulse Resp BP Pulse Ox 98.4 F 90 18 162/88 96 01/07/18 11:20 01/07/18 11:20 01/07/18 11:20 01/07/18 11:20 01/07/18 11:20 General appearance: Present: A&O X 1, morbidly obese, no acute distress - Head Head exam: Present: atraumatic, normocephalic - Eye Eye exam: Present: PERRL, conjuntiva pink, sclera anicteric Pupils: Present: PERRL - Neck Neck exam general surgery: Present: supple, trachea midline. Absent: lymphadenopathy - Respiratory Respiratory exam: Present: CTAB. Absent: accessory muscle use, rales, rhonchi, wheezes - Cardiovascular Cardiovascular exam: Present: RRR, +S1, +S2. Absent: diastolic murmur, gallop, rubs, systolic murmur - GI/Abdominal GI/Abdominal exam: Present: normal bowel sounds, soft, no peritoneal signs. Absent: distended, tenderness - Extremities Exam Extremities exam: Present: pedal edema, warm, radial pulses palpable and symmetrical. Absent: calf tenderness, cyanotic - Neurological Exam Neurological exam: Present: CN II-XII intact, no focal deficits. Absent: pronater drift, facial droop, speech deficit - Skin Skin exam: Present: dry, intact Internal Medicine: Result - Labs CBC & Chem 7: 01/07/18 06:44 01/06/18 04:58 Labs: Short CBC 01/07/18 Range/Units 06:44 WBC 8.4 (4.3-11.1) K/mcL Hgb 11.6 (11.5-15.4) g/dL Hct 33.7 L (35.3-44.9) % Plt Count 155 (140-400) K/mcL - ABG Interpretation ABG results: PT/INR, D-dimer PT 11.2 Seconds (9.4-12.1) 01/04/18 18:28 - Impressions Impressions Liver Biopsy CT 01/06/18 00:00 IMPRESSION: Successful CT guided core biopsy of the liver. D/ / 01/06/2018 15:48:20 Kimmie Blair MD / [email or web address] Interpreting Provider: Kimmie Blair MD Consult Discharge Plan - Plan Referrals: Micheal Dickerson DO [Primary Care Provider] - 01/28/18 4:30 pm
[2018-01-07] MEDS: OXYCODONE Oral CONC 10 MG/0.5 ML ORAL.SYG SL PRN (16:47)
[2018-01-07] MEDS ORDERED: Dexamethasone 10 MG/ML VIAL IV ONE (17:00)
[2018-01-07] MEDS ORDERED: ETOPOSIDE IV SCH (17:30)
[2018-01-07] MEDS ORDERED: SODIUM CHLORIDE EXCEL BG 0.9% IV SCH (17:30)
--- NOTE | 2018-01-07 17:41 | Oncology Inp Progress Note ---
<Ramya Albert L - Last Filed: 01/08/18 09:09> Date of Encounter: 01/07/18 Time of Encounter: 16:30 (1) Small cell lung cancer Current Visit: Yes Status: Acute Assessment and plan: Per discussion with Dr. Schroeder/Dr. Cristina with pathology, liver pathology strongly consistent with small cell carcinoma with official report pending. Given patients clinical presentation and acute mental status changes concerning for a degree of paraneoplastic syndrome, chemotherapy treatment has promptly been initiated. Dr. 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 The general history and prognosis of stage IV small cell carcinoma was discussed. Options for treatment were discussed, patient/ family wish to pursue palliative chemotherapy with cisplatin/etoposide. The common side effects associated with cisplatin/etoposide were reviewed which include but are not limited to cytopenias, nausea, vomiting, diarrhea, ototoxicity, nephrotoxicity, peripheral neuropathy, hair loss, taste changes/ decreased appetite and mucositis. Ms. Gracia will receive Etoposide day 1 beginning today, Etoposide/Cisplatin on day 2 and ending with Etoposide day 3 on Thursday. For subsequent cycles she will likely plan to change from Cisplatin to Carboplatin given her history of peripheral neuropathy She will return to our clinic next week for follow up. We are hopeful that her mental status may improve with the initiation of chemotherapy, however if it does not improve as quickly as hoped for, she may benefit from continued discussions with healthcare social worker for half-way placement. Please refer to Dr. Schroeder's attestation below for additional details Oncology: Subj Interval history: Ms. Gracia is resting in bed. Her family is at bedside. She has been moved to in preparation for chemotherapy initiation. She has had no acute changes. Her mental status appears to have slightly improved since our last assessment, She is able to state her name and , she thought she was in the ER, she was not oriented to time. She is able to follow commands. She is now reporting generalized pain. - Constitutional Vitals: Vital Signs Temp Pulse Resp BP Pulse Ox 01/07/18 15:20 97.8 F 89 16 162/83 97 01/07/18 11:20 98.4 F 90 18 162/88 96 01/07/18 10:43 17 98 01/07/18 06:40 97.7 F 88 14 175/91 97 01/07/18 03:40 18 99 01/07/18 03:35 98.5 F 100 16 175/82 99 01/06/18 22:49 98.2 F 122 16 156/84 95 01/06/18 21:46 16 95 01/06/18 18:40 98.6 F 109 16 125/76 95 Intake and Output 01/07/18 01/07/18 01/07/18 07:59 15:59 23:59 Intake Total 1000 / 1000 Balance 1000 / 1000 Intake: IV Fluids 1000 / 1000 0.9 % Sodium Chloride 1,000 ML 1000 / 1000 @ 100 mls/hr IVC .Q10H NAE Rx#: [id number] Other: # Voids 1 # Urine Diapers 2 Weight 108.2 kg Blood Glucose* 309 141 122 Patient Weight 01/07/18 23:59 Weight 108.2 kg General appearance: cooperative, no acute distress, no febrile - Head Head exam: Present: atraumatic - ENT ENT exam: Present: mucous membranes moist - Respiratory Respiratory exam: Present: decreased breath sounds, CTAB. Absent: respiratory distress - Cardiovascular Cardiovascular exam: Present: RRR, +S1, +S2 - GI/Abdominal GI/Abdominal exam: Present: normal bowel sounds, soft. Absent: guarding, rebound, tenderness - Extremities Exam Extremities exam: Present: pedal edema. Absent: calf tenderness - Neurological Exam Neurological exam: Present: alert, no focal deficits, strengths equal and symetr throughout Additional comments: oriented to person x1 - Psychiatric Psychiatric exam: Present: flat affect, normal mood - Skin Skin exam: Present: dry, intact, normal color, warm Oncology: Obj Data - Labs CBC & Chem 7: 01/08/18 05:28 01/08/18 05:28 Labs: Laboratory Results - last 24 hr 01/06/18 01/06/18 01/07/18 05:34 17:41 00:12 WBC RBC Hgb Hct MCV MCH MCHC RDW Plt Count MPV POC Glucose 232 H 250 H 462 H* 01/07/18 01/07/18 01/07/18 00:13 03:34 05:43 WBC RBC Hgb Hct MCV MCH MCHC RDW Plt Count MPV POC Glucose 451 H* 326 H 309 H 06/14/18 06/14/18 06:44 16:36 WBC 8.4 RBC 3.85 Hgb 11.6 Hct 33.7 L MCV 87.5 MCH 30.1 MCHC 34.4 RDW 15.4 H Plt Count 155 MPV 10.7 POC Glucose 122 H - Impressions Impressions Liver Biopsy CT 01/06/18 00:00 IMPRESSION: Successful CT guided core biopsy of the liver. D/ / 01/06/2018 15:48:20 Kimmie Blair MD / [email or web address] Interpreting Provider: Kimmie Blair MD - ABG Interpretation ABG results: PT/INR, D-dimer PT 11.2 Seconds (9.4-12.1) 01/04/18 18:28 Consult Discharge Plan - Plan Referrals: Micheal Dickerson DO [Primary Care Provider] - 01/28/18 4:30 pm <Salvatore Schroeder - Last Filed: 01/08/18 12:04> Date of Encounter: 01/08/18 (1) Small cell lung cancer Current Visit: Yes Status: Acute Assessment and plan: Seen and examined patietn and agree with assessment and plan. PLan for C1 of chemotherapy in-house. Preliminary pathologic review suggests SCLC. In light of the clinical picture I am highly suspicious of this diagnosis. Therefore, will proceed wit inpatient chemotherapy with cisplatin/ etoposide. Patient does have neuropathy. However, given the acuity of tghe situation, I recommended cisplatin for the first cycle. We can plan to change to carboplatin on subsequent cycles. MRI brain is negative for brain mets. I am hopeful that her mental status will improve with the chemotherapy and the respone of the cancer. We discussed wiht family that this is not a curable situation and that treatment is palliative in nature. - Constitutional Vitals: Vital Signs Temp Pulse Resp BP Pulse Ox 01/08/18 10:56 97.6 F 97 16 123/69 93 01/08/18 06:44 97.6 F 92 16 148/79 93 01/08/18 03:31 97.8 F 108 16 163/87 95 01/07/18 21:31 18 96 01/07/18 19:52 97 01/07/18 19:18 97.6 F 98 16 150/83 97 01/07/18 15:20 97.8 F 89 16 162/83 97 Intake and Output 01/08/18 01/08/18 01/08/18 00:59 08:59 16:59 Intake Total 1748.5 / 1748.5 1420 / 1420 360 / 360 Output Total 0 / 0 Balance 1748.5 / 1748.5 1420 / 1420 360 / 360 Intake: IV Fluids 1508.5 / 1508.5 1000 / 1000 Etoposide 170 mg In 0.9 % 508.5 / 508.5 Sodium Chloride [place] Bg 500 ML @ 508.5 mls/hr IV ONCE NAE Rx# :[id number] 0.9 % Sodium Chloride 1,000 ML 1000 / 1000 1000 / 1000 @ 100 mls/hr IVC .Q10H NAE Rx#: [id number] Oral 240 / 240 420 / 420 360 / 360 Output: Urine 0 / 0 Other: Meal Dinner Breakfast Percent of Meal Consumed 75% 100% # Voids 1 # Urine Diapers 1 1 0 Weight 108.5 kg Blood Glucose* 293 246 291 Patient Weight 01/09/18 00:59 Weight 108.5 kg Oncology: Obj Data - Labs CBC & Chem 7: 01/08/18 05:28 01/08/18 05:28 Labs: Laboratory Results - last 24 hr 01/07/18 01/07/18 01/07/18 11:22 16:36 20:16 WBC RBC Hgb Hct MCV MCH MCHC RDW Plt Count MPV Sodium Potassium Chloride Carbon Dioxide BUN Creatinine Est GFR ( Amer) Est GFR (Non-Af Amer) BUN/Creatinine Ratio Glucose POC Glucose 141 H 122 H 293 H Calculated Osmolality Calcium Magnesium Ammonia Lactate Dehydrogenase 01/08/18 01/08/18 01/08/18 05:28 05:28 05:28 WBC 8.3 RBC 3.71 L Hgb 11.1 L Hct 33.2 L MCV 89.5 MCH 29.9 MCHC 33.4 RDW 15.8 H Plt Count 151 MPV 10.6 Sodium 137 Potassium 3.5 Chloride 103 Carbon Dioxide 28 BUN 14 Creatinine 0.65 Est GFR ( Amer) > 60 Est GFR (Non-Af Amer) > 60 BUN/Creatinine Ratio 22 Glucose 268 H POC Glucose Calculated Osmolality 294 Calcium 7.7 L Magnesium 1.4 L Ammonia 51 Lactate Dehydrogenase 477 H 06/15/18 06:59 WBC RBC Hgb Hct MCV MCH MCHC RDW Plt Count MPV Sodium Potassium Chloride Carbon Dioxide BUN Creatinine Est GFR ( Amer) Est GFR (Non-Af Amer) BUN/Creatinine Ratio Glucose POC Glucose 246 H Calculated Osmolality Calcium Magnesium Ammonia Lactate Dehydrogenase - ABG Interpretation ABG results: PT/INR, D-dimer PT 11.2 Seconds (9.4-12.1) 01/04/18 18:28
[2018-01-07] MEDS ORDERED: Insulin DETEMIR 100 UNIT/ML X5UNITS SQ SCH (21:00)
[2018-01-07] MEDS: Insulin DETEMIR 100 UNIT/ML X5UNITS SQ SCH (22:50)
[2018-01-08] MEDS ORDERED: Dexamethasone 10 MG/ML VIAL IV PRN
[2018-01-08] MEDS ORDERED: Furosemide 20 MG/2 ML VIAL IVP PRN
[2018-01-08] MEDS ORDERED: Famotidine 20 MG/2 ML VIAL IV PRN
[2018-01-08] MEDS ORDERED: Prochlorperazine 10 MG/2 ML VIAL IV PRN
[2018-01-08] MEDS ORDERED: 0.9 % Sodium Chloride 500 ML IVC SCH
[2018-01-08] MEDS ORDERED: *HR* LORazepam 2 MG/ML VIAL IV PRN
[2018-01-08] MEDS: Ipratropium/Albuterol Neb 3 ML IH SCH ×5 (03:29→22:18)
[2018-01-08] MEDS: *HR* Heparin 5,000 UNIT/ML VIAL SQ SCH ×3 (05:11→22:23)
[2018-01-08] MEDS: 0.9 % Sodium Chloride 1,000 ML IVC SCH ×2 (05:11→15:48)
[2018-01-08] MEDS: Insulin LISPRO 300 UNITS/3 ML VIAL SQ SCH ×6 (05:20→22:21)
[2018-01-08 05:59] LABS: BUN/Creatinine Ratio 22 (6-26); Blood Urea Nitrogen 14 mg/dL (8-23); Calcium 7.7 mg/dL (8.6-10.3); Carbon Dioxide 28 mEq/L (23-29); Chloride 103 mEq/L (98-107); Glucose 268 mg/dL (70-105); Hematocrit 33.2 % (35.3-44.9); Hemoglobin 11.1 g/dL (11.5-15.4); Mean Corpuscular HGB Conc 33.4 g/dL (31.6-35.5); Mean Corpuscular Hemoglobin 29.9 pg (28.0-33.3); Mean Corpuscular Volume 89.5 fL (83.0-100.0); Mean Platelet Volume 10.6 fL (9.4-12.4); Osmolality,Calculated 294 (280-300); Platelet Count 151 K/mcL (140-400); Potassium 3.5 mEq/L (3.5-5.1); Red Blood Count 3.71 M/mcL (3.82-4.97); Red Cell Distribution Width 15.8 % (11.5-14.5); Sodium 137 mEq/L (136-145); eGFR For African Americans > 60 (> 60); eGFR For Non-African Americans > 60 (> 60)
[2018-01-08] MEDS ORDERED: Fosaprepitant Dimeglumine 150 MG in 0.9 % Sodium Chloride 250 ML IV SCH (08:30)
[2018-01-08] MEDS ORDERED: 0.9 % Sodium Chloride w KCl 20 MEQ/1,000 ML MLS IVC ONE (08:30)
[2018-01-08] MEDS ORDERED: Dexamethasone 10 MG/ML VIAL IV SCH (08:30)
[2018-01-08] MEDS: Aspirin 81 MG TAB.CHEW PO SCH (08:34)
[2018-01-08] MEDS: BuPROPion SR (12 HR) 100 MG TABLET PO SCH ×2 (08:34→22:23)
[2018-01-08] MEDS: Valsartan 160 MG TABLET PO SCH (08:34)
[2018-01-08] MEDS ORDERED: Lidocaine -MPF 1% 5 ML AMPUL INFILT ONE (08:42)
[2018-01-08] MEDS ORDERED: SODIUM CHLORIDE 0.9% IV SCH ×2 (09:00→10:00)
[2018-01-08] MEDS ORDERED: ETOPOSIDE IV SCH (09:00)
[2018-01-08] MEDS ORDERED: MAGNESIUM SULFATE IV SCH (10:00)
[2018-01-08] MEDS ORDERED: CISPLATIN IV SCH (10:00)
--- NOTE | 2018-01-08 10:43 | Internal Med Progress Note ---
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 ABD/pelvis CT showed innumerable hepatic hypodensities and bilateral adrenal masses are most consistent with metastatic disease. MRI of lumbar region suspicious for mets to the spine. 01/06/18 Liver biopsy pathology consist with small cell; official report pending. Oncology following and chemo initiated 01/07. (2) Acute metabolic encephalopathy Current Visit: Yes Status: Acute Assessment and plan: suspect acute metabolic encephalopathy osseous factorial with new acute CVA, elevated ammonia level and underling malignancy. Continue treating underlying causes. Supportive care for now. Mentation significantly improved on 01/08 exam (3) CVA (cerebral vascular accident) Current Visit: Yes Status: Acute Assessment and plan: presented with acute confusion. Head CT unremarkable. Brain MRI showed multiple tiny infarcts to left occipital lobe. TTE with EF 65%, no evidence of PFO or cardiac source of emboli. Carotid artery duplex showed bilateral 60-79% bilateral ICA stnosis; evaluated by Neurology who suspected likely incidental finding and not related to her current ischemic infarct therefore would not recommend further investigation at this time but will need annual monitoring in the form of carotid artery duplex. Start ASA Qualifiers: CVA mechanism: unspecified Qualified Code(s): I63.9 - Cerebral infarction, unspecified (4) Transaminitis Current Visit: Yes Status: Acute Assessment and plan: Mild transaminitis. Likely secondary to liver metastasis. Intermittently monitor. (5) Hyperammonemia Current Visit: Yes Status: Acute Assessment and plan: Likely 2/2 to liver mets. Ammonia level 56; see one-time dose lactulose. Repeat ammonia normal. (6) Diabetes type 2, uncontrolled Current Visit: Yes Status: Chronic Assessment and plan: per hx. Hgb A1c 10%. Holding home oral hypoglycemics. Start long acting daily at bedtime. SSI. Monitor blood sugars and titrate PRN. Qualifiers: Diabetes mellitus watermaster insulin use: with [facility] use Diabetes mellitus complication status: with circulatory complication Diabetes mellitus complication detail: with other circulatory complications Qualified Code(s): E11.59 - Type 2 diabetes mellitus with other circulatory complications; E11.65 - Type 2 diabetes mellitus with hyperglycemia; Z79.4 - technician terminal and repeater (current) use of insulin (7) Wounds, multiple open, lower extremity Current Visit: Yes Status: Acute Assessment and plan: present on admission. Wound care consult. Qualifiers: Encounter type: initial encounter Laterality: left Qualified Code(s): S81.802A - Unspecified open wound, left lower leg, initial encounter (8) DVT prophylaxis Current Visit: Yes Status: Acute Assessment and plan: Heparin - Time Spent With Patient Total time spent is greater than 50% in coordination of care (as documented) at patient's floor/unit and/or counseling patient: - Subjective Interval history: Seen and examined at bedside; sitting up in bed eating lunch. Receiving chemotherapy at time of exam. Inpatient significantly improved. Says she is tired but overall feels better. - Constitutional Vitals: Temp Pulse Resp BP Pulse Ox 97.6 F 92 16 148/79 93 01/08/18 06:44 01/08/18 06:44 01/08/18 06:44 01/08/18 06:44 01/08/18 06:44 General appearance: Present: A&O X 3, morbidly obese, no acute distress - Head Head exam: Present: atraumatic, normocephalic - Eye Eye exam: Present: PERRL, conjuntiva pink, sclera anicteric Pupils: Present: PERRL - Neck Neck exam general surgery: Present: supple, trachea midline. Absent: lymphadenopathy - Respiratory Respiratory exam: Present: CTAB. Absent: accessory muscle use, rales, rhonchi, wheezes - Cardiovascular Cardiovascular exam: Present: RRR, +S1, +S2. Absent: diastolic murmur, gallop, rubs, systolic murmur - GI/Abdominal GI/Abdominal exam: Present: normal bowel sounds, soft, no peritoneal signs. Absent: distended, tenderness - Extremities Exam Extremities exam: Present: pedal edema (Bilateral lower extremity edema. Dressings clean dry and intact bilateral lower extremities), warm, radial pulses palpable and symmetrical. Absent: calf tenderness, cyanotic - Neurological Exam Neurological exam: Present: CN II-XII intact, oriented X3, no focal deficits. Absent: pronater drift, facial droop, speech deficit - Skin Skin exam: Present: dry, intact Internal Medicine: Result - Labs CBC & Chem 7: 01/08/18 05:28 01/08/18 05:28 Labs: Short CBC 01/08/18 Range/Units 05:28 WBC 8.3 (4.3-11.1) K/mcL Hgb 11.1 L (11.5-15.4) g/dL Hct 33.2 L (35.3-44.9) % Plt Count 151 (140-400) K/mcL BMP 01/08/18 05:28 Sodium 137 Potassium 3.5 Chloride 103 Carbon Dioxide 28 BUN 14 Creatinine 0.65 Glucose 268 H Calcium 7.7 L - ABG Interpretation ABG results: PT/INR, D-dimer PT 11.2 Seconds (9.4-12.1) 01/04/18 18:28 Consult Discharge Plan - Plan Referrals: Micheal Dickerson DO [Primary Care Provider] - 01/28/18 4:30 pm
[2018-01-08 11:08] LABS: Lactate Dehydrogenase 477 Units/L (140-271); Magnesium 1.4 mg/dL (1.6-2.6)
--- NOTE | 2018-01-08 18:30 | Oncology Inp Progress Note ---
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 Started cycle #1, Day 1 Etoposide/Cisplatin on 01/07/18. Consider transition to Etoposide/Carboplatin starting with cycle #2 secondary to presence of peripheral neuropathy, poorly controlled diabetes She is tolerating chemotherapy exceptionally well so far with no reported side effects today. Her mental status has dramatically improved since the initiation of chemotherapy. 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 Continue to work with PT/OT and SS for discharge disposition, her mental status and performance status may improve to allow for discharge home soon or after short term rehabilitation. Please refer to Dr. Schroeder's attestation below for additional details Oncology: Subj Interval history: Ms. Gracia is tolerating therapy exceptionally well. She is without any complaint today. Her pain is controlled. She denies nausea, vomiting or diarrhea. Her mental status has greatly improved. She is now able to carry on a fluent conversation. She has family at bedside she is visiting with. She is oriented to person, place, time and situation. - Constitutional Vitals: Vital Signs Temp Pulse Resp BP Pulse Ox 01/08/18 14:13 98 F 100 16 140/69 94 01/08/18 10:56 97.6 F 97 16 123/69 93 01/08/18 06:44 97.6 F 92 16 148/79 93 01/08/18 03:31 97.8 F 108 16 163/87 95 01/07/18 21:31 18 96 01/07/18 19:52 97 01/07/18 19:18 97.6 F 98 16 150/83 97 Intake and Output 01/08/18 01/08/18 01/08/18 07:59 15:59 23:59 Intake Total 1420 / 1420 1610 / 1610 240 / 240 Balance 1420 / 1420 1610 / 1610 240 / 240 Intake: IV Fluids 1000 / 1000 1250 / 1250 Etoposide 170 mg In 0.9 % 250 / 250 Sodium Chloride 500 ML @ 508.5 mls/hr IV ONCE NAE Rx#: [id number] 0.9 % Sodium Chloride 1,000 ML 1000 / 1000 1000 / 1000 @ 100 mls/hr IVC .Q10H NAE Rx#: [id number] Oral 420 / 420 360 / 360 240 / 240 Other: Meal Breakfast Dinner Percent of Meal Consumed 100% 100% # Urine Diapers 1 0 Weight 108.5 kg Blood Glucose* 246 291 243 Patient Weight 01/08/18 23:59 Weight 108.5 kg General appearance: cooperative, no acute distress, no febrile - Head Head exam: Present: atraumatic - ENT ENT exam: Present: mucous membranes moist - Respiratory Respiratory exam: Present: CTAB. Absent: respiratory distress - Cardiovascular Cardiovascular exam: Present: RRR, +S1, +S2 - GI/Abdominal GI/Abdominal exam: Present: normal bowel sounds, soft. Absent: guarding, rebound, tenderness - Extremities Exam Extremities exam: Present: pedal edema. Absent: calf tenderness Additional comments: toe amputations - Neurological Exam Neurological exam: Present: alert, oriented X3, no focal deficits, strengths equal and symetr throughout - Psychiatric Psychiatric exam: Present: normal affect, normal mood - Skin Skin exam: Present: dry, intact, normal color, warm Oncology: Obj Data - Labs CBC & Chem 7: 01/10/18 04:00 01/10/18 04:00 - ABG Interpretation ABG results: PT/INR, D-dimer PT 11.2 Seconds (9.4-12.1) 01/04/18 18:28 Consult Discharge Plan - Plan Referrals: Micheal Dickerson DO [Primary Care Provider] - 01/28/18 4:30 pm
[2018-01-08] MEDS: Ipratropium/Albuterol Neb 3 ML IH PRN (22:18)
[2018-01-08] MEDS: Insulin DETEMIR 100 UNIT/ML X5UNITS SQ SCH (22:22)
[2018-01-09] MEDS: 0.9 % Sodium Chloride 1,000 ML IVC SCH ×2 (02:09→20:18)
[2018-01-09 02:38] LABS: Hematocrit 31.4 % (35.3-44.9); Hemoglobin 10.8 g/dL (11.5-15.4); Mean Corpuscular HGB Conc 34.4 g/dL (31.6-35.5); Mean Corpuscular Hemoglobin 30.3 pg (28.0-33.3); Mean Platelet Volume 10.7 fL (9.4-12.4); Platelet Count 139 K/mcL (140-400); Red Blood Count 3.57 M/mcL (3.82-4.97); Red Cell Distribution Width 15.5 % (11.5-14.5)
[2018-01-09 02:54] LABS: BUN/Creatinine Ratio 28 (6-26); Blood Urea Nitrogen 19 mg/dL (8-23); Calcium 7.2 mg/dL (8.6-10.3); Carbon Dioxide 27 mEq/L (23-29); Chloride 101 mEq/L (98-107); Glucose 334 mg/dL (70-105); Osmolality,Calculated 295 (280-300); Potassium 2.7 mEq/L (3.5-5.1); Sodium 135 mEq/L (136-145); eGFR For African Americans > 60 (> 60); eGFR For Non-African Americans > 60 (> 60)
[2018-01-09] MEDS: *HR* Heparin 5,000 UNIT/ML VIAL SQ SCH ×3 (06:19→22:31)
[2018-01-09] MEDS: BuPROPion SR (12 HR) 100 MG TABLET PO SCH ×2 (08:22→22:33)
[2018-01-09] MEDS: Aspirin 81 MG TAB.CHEW PO SCH (08:22)
[2018-01-09] MEDS: Valsartan 160 MG TABLET PO SCH (08:23)
[2018-01-09] MEDS: Insulin LISPRO 300 UNITS/3 ML VIAL SQ SCH ×4 (08:23→22:26)
--- NOTE | 2018-01-09 10:53 | Internal Med Progress Note ---
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 ABD/pelvis CT showed innumerable hepatic hypodensities and bilateral adrenal masses are most consistent with metastatic disease. MRI of lumbar region suspicious for mets to the spine. 01/06/18 Liver biopsy pathology consist with small cell; official report pending. Oncology following and chemo initiated 01/07. (2) Acute metabolic encephalopathy Current Visit: Yes Status: Acute Assessment and plan: suspect acute metabolic encephalopathy osseous factorial with new acute CVA, elevated ammonia level and underling malignancy. Continue treating underlying causes. Supportive care for now. Mentation significantly improved as of 01/08 (3) CVA (cerebral vascular accident) Current Visit: Yes Status: Acute Assessment and plan: presented with acute confusion. Head CT unremarkable. Brain MRI showed multiple tiny infarcts to left occipital lobe. TTE with EF 65%, no evidence of PFO or cardiac source of emboli. Carotid artery duplex showed bilateral 60-79% bilateral ICA stnosis; evaluated by Neurology who suspected likely incidental finding and not related to her current ischemic infarct therefore would not recommend further investigation at this time but will need annual monitoring in the form of carotid artery duplex. Start ASA Qualifiers: CVA mechanism: unspecified Qualified Code(s): I63.9 - Cerebral infarction, unspecified (4) Transaminitis Current Visit: Yes Status: Acute Assessment and plan: Mild transaminitis. Likely secondary to liver metastasis. Intermittently monitor. (5) Hyperammonemia Current Visit: Yes Status: Acute Assessment and plan: Likely 2/2 to liver mets. Ammonia level 56; see one-time dose lactulose. Repeat ammonia normal. (6) Diabetes type 2, uncontrolled Current Visit: Yes Status: Chronic Assessment and plan: per hx. Hgb A1c 10%. Holding home oral hypoglycemics. Start long acting daily at bedtime. SSI. Monitor blood sugars and titrate PRN. Qualifiers: Diabetes mellitus rn long term care insulin use: with correction use Diabetes mellitus complication status: with circulatory complication Diabetes mellitus complication detail: with other circulatory complications Qualified Code(s): E11.59 - Type 2 diabetes mellitus with other circulatory complications; E11.65 - Type 2 diabetes mellitus with hyperglycemia; Z79.4 - long-term (current) use of insulin (7) Wounds, multiple open, lower extremity Current Visit: Yes Status: Acute Assessment and plan: present on admission. Wound care consult. Qualifiers: Encounter type: initial encounter Laterality: left Qualified Code(s): S81.802A - Unspecified open wound, left lower leg, initial encounter (8) Hypokalemia Current Visit: Yes Status: Acute Assessment and plan: K 2.7; replaced. Monitor repeat CMP (9) DVT prophylaxis Current Visit: Yes Status: Acute Assessment and plan: Heparin - Time Spent With Patient Total time spent is greater than 50% in coordination of care (as documented) at patient's floor/unit and/or counseling patient: - Subjective Interval history: Seen and examined at bedside; sitting up in bed reading. Says she feels better today. Appetite is better and she feels more awake. She has not been out of bed. And PT/OT has not evaluated her yet. No family at bedside. - Constitutional Vitals: Temp Pulse Resp BP Pulse Ox 97.8 F 98 16 184/84 97 01/09/18 10:42 01/09/18 10:42 01/09/18 10:42 01/09/18 10:42 01/09/18 10:42 General appearance: Present: A&O X 3, morbidly obese, no acute distress - Head Head exam: Present: atraumatic, normocephalic - Eye Eye exam: Present: PERRL, conjuntiva pink, sclera anicteric Pupils: Present: PERRL - Neck Neck exam general surgery: Present: supple, trachea midline. Absent: lymphadenopathy - Respiratory Respiratory exam: Present: CTAB. Absent: accessory muscle use, rales, rhonchi, wheezes - Cardiovascular Cardiovascular exam: Present: RRR, +S1, +S2. Absent: diastolic murmur, gallop, rubs, systolic murmur - GI/Abdominal GI/Abdominal exam: Present: normal bowel sounds, soft, no peritoneal signs. Absent: distended, tenderness - Extremities Exam Extremities exam: Present: pedal edema (Bilateral lower extremity edema. ), warm , radial pulses palpable and symmetrical. Absent: calf tenderness, cyanotic - Neurological Exam Neurological exam: Present: CN II-XII intact, oriented X3, no focal deficits. Absent: pronater drift, facial droop, speech deficit - Skin Skin exam: Present: dry, intact Internal Medicine: Result - Labs CBC & Chem 7: 01/09/18 02:15 01/09/18 02:15 Labs: Short CBC 01/09/18 Range/Units 02:15 WBC 7.8 (4.3-11.1) K/mcL Hgb 10.8 L (11.5-15.4) g/dL Hct 31.4 L (35.3-44.9) % Plt Count 139 L (140-400) K/mcL BMP 01/08/18 01/09/18 05:28 02:15 Sodium 137 135 L Potassium 3.5 2.7 L Chloride 103 101 Carbon Dioxide 28 27 BUN 14 19 Creatinine 0.65 0.67 Glucose 268 H 334 H Calcium 7.7 L 7.2 L - ABG Interpretation ABG results: PT/INR, D-dimer PT 11.2 Seconds (9.4-12.1) 01/04/18 18:28 Consult Discharge Plan - Plan Referrals: Micheal Dickerson DO [Primary Care Provider] - 01/28/18 4:30 pm
[2018-01-09] MEDS ORDERED: Dexamethasone 10 MG/ML VIAL IV SCH (11:00)
[2018-01-09] MEDS ORDERED: ETOPOSIDE IV SCH (12:00)
[2018-01-09] MEDS ORDERED: SODIUM CHLORIDE EXCEL BG 0.9% IV SCH (12:00)
[2018-01-09] MEDS: OXYCODONE Oral CONC 10 MG/0.5 ML ORAL.SYG SL PRN (18:23)
[2018-01-09] MEDS: Insulin DETEMIR 100 UNIT/ML X5UNITS SQ SCH (22:28)
[2018-01-10] MEDS: *HR* Heparin 5,000 UNIT/ML VIAL SQ SCH ×3 (05:43→21:29)
[2018-01-10 06:39] LABS: Hematocrit 31.3 % (35.3-44.9); Hemoglobin 10.9 g/dL (11.5-15.4); Mean Corpuscular HGB Conc 34.8 g/dL (31.6-35.5); Mean Corpuscular Hemoglobin 30.2 pg (28.0-33.3); Mean Corpuscular Volume 86.7 fL (83.0-100.0); Mean Platelet Volume 10.8 fL (9.4-12.4); Platelet Count 147 K/mcL (140-400); Red Blood Count 3.61 M/mcL (3.82-4.97); Red Cell Distribution Width 15.5 % (11.5-14.5)
[2018-01-10 06:57] LABS: BUN/Creatinine Ratio 29 (6-26); Blood Urea Nitrogen 20 mg/dL (8-23); Calcium 7.2 mg/dL (8.6-10.3); Carbon Dioxide 34 mEq/L (23-29); Chloride 98 mEq/L (98-107); Glucose 79 mg/dL (70-105); Osmolality,Calculated 288 (280-300); Potassium 2.7 mEq/L (3.5-5.1); Sodium 138 mEq/L (136-145); eGFR For African Americans > 60 (> 60); eGFR For Non-African Americans > 60 (> 60)
[2018-01-10] MEDS: Valsartan 160 MG TABLET PO SCH (07:29)
[2018-01-10] MEDS: Aspirin 81 MG TAB.CHEW PO SCH (07:29)
[2018-01-10] MEDS: BuPROPion SR (12 HR) 100 MG TABLET PO SCH ×2 (07:30→21:28)
[2018-01-10] MEDS: Insulin LISPRO 300 UNITS/3 ML VIAL SQ SCH ×4 (08:02→21:21)
--- NOTE | 2018-01-10 08:56 | Oncology Inp Progress Note ---
Date of Encounter: 01/11/18 Time of Encounter: 09:00 (1) Small cell lung cancer Current Visit: Yes Status: Acute Assessment and plan: Stage IV, newly diagnosed, with multiple hepatic lesions per outside report mediastinal hilar adenopathy, osseous lesions without any spinal cord compromise , status post cycle 1 of carboplatin and etoposide day 3 on 2017. She is tolerating chemotherapy so for quite well. She is in no acute distress her pain is under control. The continue antiemetics. Palpation Neulasta, we will monitor her labs while she is in-house. Hypokalemia-supplemented IV Mental status changes has improved. Acute infarcts in MRI brain noted, possible metabolic encephalopathy that is resolved. Physical therapy. Plan follow up once discharged from hospital. Oncology: Subj Interval history: [place] nauseated and achy-relieved with meds this AM. Breathing well, no cough/ pain - Constitutional Vitals: Vital Signs Temp Pulse Resp BP Pulse Ox 01/10/18 06:21 98.9 F 104 16 160/99 98 01/10/18 03:26 98.6 F 97 16 152/90 98 01/09/18 23:16 98.4 F 94 16 150/93 98 01/09/18 19:03 98.7 F 104 16 159/93 98 01/09/18 14:18 98.5 F 110 16 148/86 97 01/09/18 10:42 97.8 F 98 16 184/84 97 Intake and Output 01/09/18 01/10/18 01/10/18 23:59 07:59 15:59 Intake Total 2922.5 / 2922.5 Output Total 3150 / 3150 1350 / 1350 Balance -227.5 / -227.5 -1350 / -1350 Intake: IV Fluids 2682.5 / 2682.5 KCl 20 mEq in 0.9% Sodium 1000 / 1000 Chloride 20 meq In 1,000 ml @ 500 MLS/HR 500 mls/hr IVC .Q2H ONE Rx#:[id number] Oral 240 / 240 Output: Urine 1900 / 1900 200 / 200 Catheter 1250 / 1250 1150 / 1150 Other: Meal Dinner Percent of Meal Consumed 0% Blood Glucose* 328 63 79 General appearance: no acute distress - Head Head exam: Present: atraumatic, normal inspection - Eye Eye exam: Present: sclera anicteric - ENT ENT exam: Present: normal exam - Respiratory Respiratory exam: Present: CTAB - Cardiovascular Cardiovascular exam: Present: +S1, +S2 - GI/Abdominal GI/Abdominal exam: Present: distended, soft - Extremities Exam Extremities exam: Present: pedal edema Additional comments: LLext dressing - Neurological Exam Neurological exam: Present: alert, CN II-XII intact, oriented X3 - Psychiatric Psychiatric exam: Present: normal affect Oncology: Obj Data - Labs CBC & Chem 7: 01/10/18 04:00 01/11/18 05:05 Labs: Laboratory Results - last 24 hr 01/08/18 01/08/18 01/10/18 11:10 16:04 04:00 WBC 9.0 RBC 3.61 L Hgb 10.9 L Hct 31.3 L MCV 86.7 MCH 30.2 MCHC 34.8 RDW 15.5 H Plt Count 147 MPV 10.8 Sodium Potassium Chloride Carbon Dioxide BUN Creatinine Est GFR ( Amer) Est GFR (Non-Af Amer) BUN/Creatinine Ratio Glucose POC Glucose 291 H 243 H Calculated Osmolality Calcium 01/10/18 01/10/18 01/10/18 04:00 07:24 08:00 WBC RBC Hgb Hct MCV MCH MCHC RDW Plt Count MPV Sodium 138 Potassium 2.7 L Chloride 98 Carbon Dioxide 34 H BUN 20 Creatinine 0.69 Est GFR ( Amer) > 60 Est GFR (Non-Af Amer) > 60 BUN/Creatinine Ratio 29 H Glucose 79 POC Glucose 63 L 79 Calculated Osmolality 288 Calcium 7.2 L - ABG Interpretation ABG results: PT/INR, D-dimer PT 11.2 Seconds (9.4-12.1) 01/04/18 18:28 Consult Discharge Plan - Plan Referrals: Micheal Dickerson DO [Primary Care Provider] - 01/28/18 4:30 pm
[2018-01-10] MEDS ORDERED: Potassium Chloride 40 MEQ, Lidocaine 1% 2 ML in D5% in Water 500 ML IVPB ONE (10:26)
[2018-01-10] MEDS ORDERED: Calcium Gluconate 2,000 MG in 0.9 % Sodium Chloride 100 ML IVPB ONE (10:37)
--- NOTE | 2018-01-10 10:46 | Internal Med Progress Note ---
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 ABD/pelvis CT showed innumerable hepatic hypodensities and bilateral adrenal masses consistent with metastatic disease. MRI of lumbar region suspicious for mets to the spine. 01/06/18 Liver biopsy pathology consist with small cell; official report pending. Oncology following and chemo initiated 01/07/18. Monitor daily CBC and CMP. He will precautions. Anti-emetics PRN (2) Acute metabolic encephalopathy Current Visit: Yes Status: Acute Assessment and plan: suspect acute metabolic encephalopathy osseous factorial with new acute CVA, elevated ammonia level and underling malignancy. Continue treating underlying causes. Mentation significantly improved as of 01/08 (3) CVA (cerebral vascular accident) Current Visit: Yes Status: Acute Assessment and plan: presented with acute confusion. Head CT unremarkable. Brain MRI showed multiple tiny infarcts to left occipital lobe. TTE with EF 65%, no evidence of PFO or cardiac source of emboli. Carotid artery duplex showed bilateral 60-79% bilateral ICA stnosis; evaluated by Neurology who suspected likely incidental finding and not related to her current ischemic infarct therefore would not recommend further investigation at this time but will need annual monitoring in the form of carotid artery duplex. Start ASA Qualifiers: CVA mechanism: unspecified Qualified Code(s): I63.9 - Cerebral infarction, unspecified (4) Transaminitis Current Visit: Yes Status: Acute Assessment and plan: Mild transaminitis. Likely secondary to liver metastasis. Intermittently monitor. (5) Hyperammonemia Current Visit: Yes Status: Acute Assessment and plan: Likely 2/2 to liver mets. Ammonia level 56; see one-time dose lactulose. Repeat ammonia normal. (6) Diabetes type 2, uncontrolled Current Visit: Yes Status: Chronic Assessment and plan: per hx. Hgb A1c 10%. Holding home oral hypoglycemics. Start long acting daily at bedtime. SSI. Monitor blood sugars and titrate PRN. Qualifiers: Diabetes mellitus senior care insulin use: with senior care use Diabetes mellitus complication status: with circulatory complication Diabetes mellitus complication detail: with other circulatory complications Qualified Code(s): E11.59 - Type 2 diabetes mellitus with other circulatory complications; E11.65 - Type 2 diabetes mellitus with hyperglycemia; Z79.4 - computer terminal operator (current) use of insulin (7) Wounds, multiple open, lower extremity Current Visit: Yes Status: Acute Assessment and plan: present on admission. Wound care consult. Qualifiers: Encounter type: initial encounter Laterality: left Qualified Code(s): S81.802A - Unspecified open wound, left lower leg, initial encounter (8) Hypokalemia Current Visit: Yes Status: Acute Assessment and plan: Likely secondary to chemotherapy. Monitor daily and replace PRN. Mg pending (9) Hypocalcemia Current Visit: Yes Status: Acute Assessment and plan: Likely secondary to chemotherapy. Monitor CMP daily and replace PRN (10) DVT prophylaxis Current Visit: Yes Status: Acute Assessment and plan: Heparin - Time Spent With Patient Total time spent is greater than 50% in coordination of care (as documented) at patient's floor/unit and/or counseling patient: - Subjective Interval history: Seen and examined at bedside. Sitting up in bed. Appears comfortable. She had some nausea earlier today otherwise has no complaints. She would like to get shower today of possible. Says she got up and worked with PT yesterday. - Constitutional Vitals: Temp Pulse Resp BP Pulse Ox 98.9 F 112 18 134/79 94 01/10/18 10:33 01/10/18 10:33 01/10/18 10:33 01/10/18 10:33 01/10/18 10:33 General appearance: Present: A&O X 3, morbidly obese, no acute distress - Head Head exam: Present: atraumatic, normocephalic - Eye Eye exam: Present: PERRL, conjuntiva pink, sclera anicteric Pupils: Present: PERRL - Neck Neck exam general surgery: Present: supple, trachea midline. Absent: lymphadenopathy - Respiratory Respiratory exam: Present: CTAB. Absent: accessory muscle use, rales, rhonchi, wheezes - Cardiovascular Cardiovascular exam: Present: RRR, +S1, +S2. Absent: diastolic murmur, gallop, rubs, systolic murmur - GI/Abdominal GI/Abdominal exam: Present: normal bowel sounds, soft, no peritoneal signs. Absent: distended, tenderness - Extremities Exam Extremities exam: Present: pedal edema, warm, radial pulses palpable and symmetrical. Absent: calf tenderness, cyanotic Additional comments: Bilateral lower extremity edema. Bilateral lower extremities with dressings clean, dry, intact. - Neurological Exam Neurological exam: Present: CN II-XII intact, oriented X3, no focal deficits. Absent: pronater drift, facial droop, speech deficit - Skin Skin exam: Present: dry, intact Internal Medicine: Result - Labs CBC & Chem 7: 01/10/18 04:00 01/10/18 04:00 Labs: Short CBC 01/10/18 Range/Units 04:00 WBC 9.0 (4.3-11.1) K/mcL Hgb 10.9 L (11.5-15.4) g/dL Hct 31.3 L (35.3-44.9) % Plt Count 147 (140-400) K/mcL BMP 01/10/18 04:00 Sodium 138 Potassium 2.7 L Chloride 98 Carbon Dioxide 34 H BUN 20 Creatinine 0.69 Glucose 79 Calcium 7.2 L - ABG Interpretation ABG results: PT/INR, D-dimer PT 11.2 Seconds (9.4-12.1) 01/04/18 18:28 Consult Discharge Plan - Plan Referrals: Micheal Dickerson DO [Primary Care Provider] - 01/28/18 4:30 pm
[2018-01-10 10:48] LABS: Magnesium 1.1 mg/dL (1.6-2.6)
[2018-01-10] MEDS ORDERED: 0.9 % Sodium Chloride 500 ML IVC ONE (11:16)
[2018-01-10 15:11] LABS: Bilirubin,Urine Negative (Negative); Blood,Urine Large (Negative); Clarity,Urine Cloudy (Clear); Color,Urine Yellow (Yellow); Glucose,Urine (UA) Normal (Normal); Ketones,Urine Negative (Negative); Leukocyte Esterase,Urine Moderate (Negative); Nitrite,Urine Negative (Negative); Protein,Urine 100 mg/dL (Neg-Trace); Specific Gravity,Urine 1.024 (1.010-1.025); Urobilinogen,Urine Normal (Normal)
[2018-01-10 15:15] LABS: Bacteria,Urine Many per hpf (None-Few); Hyaline Casts,Urine None Seen per lpf (None-Few); RBC,Urine TNTC per hpf (0-3); Squamous Epithelial Cell,Urine Moderate per lpf (None-Few); WBC,Urine TNTC per hpf (0-3)
[2018-01-10] MEDS: Insulin DETEMIR 100 UNIT/ML X5UNITS SQ SCH (21:27)
[2018-01-11] MEDS: *HR* Heparin 5,000 UNIT/ML VIAL SQ SCH ×3 (05:16→21:32)
[2018-01-11 06:08] LABS: BUN/Creatinine Ratio 29 (6-26); Blood Urea Nitrogen 20 mg/dL (8-23); Calcium 7.3 mg/dL (8.6-10.3); Carbon Dioxide 32 mEq/L (23-29); Chloride 94 mEq/L (98-107); Glucose 140 mg/dL (70-105); Osmolality,Calculated 279 (280-300); Potassium 3.5 mEq/L (3.5-5.1); Sodium 132 mEq/L (136-145); eGFR For African Americans > 60 (> 60); eGFR For Non-African Americans > 60 (> 60)
[2018-01-11] MEDS: Insulin LISPRO 300 UNITS/3 ML VIAL SQ SCH ×4 (08:21→21:28)
[2018-01-11] MEDS: BuPROPion SR (12 HR) 100 MG TABLET PO SCH ×2 (09:38→21:29)
[2018-01-11] MEDS: Valsartan 160 MG TABLET PO SCH (09:39)
[2018-01-11] MEDS: Aspirin 81 MG TAB.CHEW PO SCH (09:39)
[2018-01-11] MEDS ORDERED: cefTRIAXone 1,000 MG in Water for inj. (sterile) 20 ML 10 ML IVP SCH (10:00)
[2018-01-11] MEDS ORDERED: Azithromycin 500 MG in D5% in Water 250 ML IVPB SCH (10:00)
[2018-01-11 10:20] LABS: Hematocrit 28.4 % (35.3-44.9); Hemoglobin 9.7 g/dL (11.5-15.4); Mean Corpuscular HGB Conc 34.2 g/dL (31.6-35.5); Mean Corpuscular Hemoglobin 29.6 pg (28.0-33.3); Mean Corpuscular Volume 86.6 fL (83.0-100.0); Mean Platelet Volume 10.6 fL (9.4-12.4); Platelet Count 147 K/mcL (140-400); Red Blood Count 3.28 M/mcL (3.82-4.97); Red Cell Distribution Width 15.7 % (11.5-14.5)
--- NOTE | 2018-01-11 10:27 | Internal Med Progress Note ---
Date of Encounter: 01/11/18 Time of Encounter: 10:44 - Assessment and plan (1) Small cell lung cancer Current Visit: Yes Status: Acute Assessment and plan: OSH chest CT showed a RML mass with mediastinal and right hilar adenopathy highly suggestive of bronchiogenic carcinoma with nodular metastatic disease. ABD/pelvis CT showed innumerable hepatic hypodensities and bilateral adrenal masses consistent with metastatic disease. MRI of lumbar region suspicious for mets to the spine. 01/06/18 Liver biopsy pathology consist with small cell; official report pending. Oncology following and chemo initiated 01/07/18. Monitor daily CBC and CMP. Chemo precautions. Anti-emetics PRN (2) Acute metabolic encephalopathy Current Visit: Yes Status: Acute Assessment and plan: suspect acute metabolic encephalopathy multifactorial with new acute CVA, elevated ammonia level and underling malignancy. Continue treating underlying causes. Mentation significantly improved as of 01/08 (3) CVA (cerebral vascular accident) Current Visit: Yes Status: Acute Assessment and plan: presented with acute confusion. Head CT unremarkable. Brain MRI showed multiple tiny infarcts to left occipital lobe. TTE with EF 65%, no evidence of PFO or cardiac source of emboli. Carotid artery duplex showed bilateral 60-79% bilateral ICA stnosis; evaluated by Neurology who suspected likely incidental finding and not related to her current ischemic infarct therefore would not recommend further investigation at this time but will need annual monitoring in the form of carotid artery duplex. Cont ASA Qualifiers: CVA mechanism: unspecified Qualified Code(s): I63.9 - Cerebral infarction, unspecified (4) Transaminitis Current Visit: Yes Status: Acute Assessment and plan: Mild transaminitis. Likely secondary to liver metastasis. Intermittently monitor. (5) Hyperammonemia Current Visit: Yes Status: Acute Assessment and plan: Likely 2/2 to liver mets. Ammonia level 56; see one-time dose lactulose. Repeat ammonia normal. (6) Diabetes type 2, uncontrolled Current Visit: Yes Status: Chronic Assessment and plan: per hx. Hgb A1c 10%. Holding home oral hypoglycemics. Start long acting daily at bedtime. SSI. Monitor blood sugars and titrate PRN. 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 Cont local wound care Qualifiers: Encounter type: initial encounter Laterality: left Qualified Code(s): S81.802A - Unspecified open wound, left lower leg, initial encounter (8) Hypokalemia Current Visit: Yes Status: Acute Assessment and plan: Likely secondary to chemotherapy. Monitor daily and replace PRN. Mg pending (9) Hypocalcemia Current Visit: Yes Status: Acute Assessment and plan: Likely secondary to chemotherapy. Monitor CMP daily and replace PRN (10) Pneumonia Current Visit: Yes Status: Acute Assessment and plan: chest CTA concerning for bilateral pneumonia. Symptomatic with cough, rhonchi, tachycardia and low-grade fever. High risk for complications with new malignancy and initiation of chemotherapy. Start vanco and zosyn. Respiratory PCR, urinary antigens pending. Aggressive IS Qualifiers: Pneumonia type: due to unspecified organism Laterality: bilateral Lung location: lower lobe of lung Qualified Code(s): J18.1 - Lobar pneumonia, unspecified organism (11) UTI (urinary tract infection) Current Visit: Yes Status: Acute Assessment and plan: UA indicative of UTI. Cont IV zosyn. Follow urine cx Qualifiers: Urinary tract infection type: acute cystitis Hematuria presence: without hematuria Qualified Code(s): N30.00 - Acute cystitis without hematuria (12) Anemia Current Visit: Yes Status: Acute Assessment and plan: likely secondary to chemo. Hgb 9.7 on 01/11. No active bleeding. Monitor H&H Qualifiers: Other causes of anemia: antineoplastic chemotherapy Qualified Code(s): D64.81 - Anemia due to antineoplastic chemotherapy; T45.1X5A - Adverse effect of antineoplastic and immunosuppressive drugs, initial encounter (13) DVT prophylaxis Current Visit: Yes Status: Acute Assessment and plan: Heparin - Time Spent With Patient Total time spent is greater than 50% in coordination of care (as documented) at patient's floor/unit and/or counseling patient: - Subjective Interval history: Seen and examined at bedside. Sitting up in bed; says she feels "okay". No nausea, no pain. She has an appetite and has been eating well. - Constitutional Vitals: Temp Pulse Resp BP Pulse Ox 99.0 F 108 17 167/97 94 01/11/18 07:19 01/11/18 07:19 01/11/18 07:19 01/11/18 07:19 01/11/18 07:19 General appearance: Present: A&O X 3, morbidly obese, no acute distress - Head Head exam: Present: atraumatic, normocephalic - Eye Eye exam: Present: PERRL, conjuntiva pink, sclera anicteric Pupils: Present: PERRL - Neck Neck exam general surgery: Present: supple, trachea midline. Absent: lymphadenopathy - Respiratory Respiratory exam: Present: rhonchi. Absent: accessory muscle use, rales, wheezes - Cardiovascular Cardiovascular exam: Present: +S1, +S2, systolic murmur, tachycardia. Absent: diastolic murmur, gallop, rubs - GI/Abdominal GI/Abdominal exam: Present: normal bowel sounds, soft, no peritoneal signs. Absent: distended, tenderness - Extremities Exam Extremities exam: Present: pedal edema, warm, radial pulses palpable and symmetrical. Absent: calf tenderness, cyanotic - Neurological Exam Neurological exam: Present: CN II-XII intact, oriented X3, no focal deficits. Absent: pronater drift, facial droop, speech deficit - Skin Skin exam: Present: dry, intact Internal Medicine: Result - Labs CBC & Chem 7: 01/11/18 09:54 01/11/18 05:05 Labs: Short CBC 01/11/18 Range/Units 09:54 WBC 9.4 (4.3-11.1) K/mcL Hgb 9.7 L (11.5-15.4) g/dL Hct 28.4 L (35.3-44.9) % Plt Count 147 (140-400) K/mcL BMP 01/10/18 01/11/18 04:00 05:05 Sodium 138 132 L Potassium 2.7 L 3.5 Chloride 98 94 L Carbon Dioxide 34 H 32 H BUN 20 20 Creatinine 0.69 0.68 Glucose 79 140 H Calcium 7.2 L 7.3 L Urine 01/10/18 Range/Units 15:00 Urine Color Yellow (Yellow) Urine Clarity Cloudy A (Clear) Urine pH 6.0 (5.0-8.0) pH Units Ur Specific [place] 1.024 (1.010-1.025) Urine Protein 100 H (Neg-Trace) mg/dL Urine Glucose (UA) Normal (Normal) mg/dL - ABG Interpretation ABG results: PT/INR, D-dimer PT 11.2 Seconds (9.4-12.1) 01/04/18 18:28 - Impressions Impressions Chest CTA 01/10/18 22:27 IMPRESSION: No evidence of pulmonary embolism. Right middle lobe mass with extension into the right hilum and right mediastinum. There are adrenal and hepatic metastases as well as described above. Small bilateral pleural effusions and associated consolidation which could represent atelectasis or pneumonia. D/ / Igor Westfall MD / Igor Westfall MD Interpreting Provider: Igor Westfall MD Consult Discharge Plan - Plan Referrals: Micheal Dickerson DO [Primary Care Provider] - 01/28/18 4:30 pm
[2018-01-11 10:56] LABS: Adenovirus Not Detected (Not Detect); Bordetella Pertussis Not Detected (Not Detect); Chlamydophila pneumoniae Not Detected (Not Detect); Coronavirus 229E Not Detected (Not Detect); Coronavirus HKU1 Not Detected (Not Detect); Coronavirus NL63 Not Detected (Not Detect); Coronavirus OC43 Not Detected (Not Detect); Human Metapneumovirus Not Detected (Not Detect); Human Rhinovirus/Enterovirus Not Detected (Not Detect); Influenza A Subtype 2009 H1 Not Detected (Not Detect); Influenza A Untypeable Not Detected (Not Detect); Influenza B Not Detected (Not Detect); Mycoplasma pneumoniae Not Detected (Not Detect); Parainfluenza Virus 1 Not Detected (Not Detect); Parainfluenza Virus 2 Not Detected (Not Detect); Parainfluenza Virus 3 Not Detected (Not Detect); Parainfluenza Virus 4 Not Detected (Not Detect); Respiratory Syncytial Virus Not Detected (Not Detect)
[2018-01-11] MEDS ORDERED: Piperacillin/Tazobactam 3.375 GM in 0.9 % Sodium Chloride Mini Bag 100 ML IVPB SCH (11:00)
[2018-01-11] MEDS: Piperacillin/Tazobactam 3.375 GM in 0.9 % Sodium Chloride Mini Bag 100 ML IVPB SCH ×2 (13:51→21:32)
--- NOTE | 2018-01-11 15:23 | Oncology Inp Progress Note ---
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 S/P cycle #1, Day 1 Etoposide/Cisplatin started on 01/07/18. Consider transition to Etoposide/Carboplatin starting with cycle #2 secondary to presence of peripheral neuropathy, poorly controlled diabetes She tolerated chemotherapy exceptionally well so far with no reported side effects today. Her mental status has dramatically improved since the initiation of chemotherapy. 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 Continue to work with PT/OT and SS for discharge disposition, she is planned for discharge to nursing facility for short term rehab. Now treating for pneumonia/UTI-She may require 24-48H of IV ATB prior to deescalation depending upon her response to treatment per hospitalist S/P Neulasta today-expect leukocytosis in future as response to colony stimulating factor Electrolyte abnormalities likely secondary to cisplatin. Electrolyte abnormalities not consistent with tumor lysis at this time Oncology: Subj Interval history: Ms. Gracia denies pain, nausea, vomiting or diarrhea. No new numbness/tingling, she does have chronic peripheral neuropathy. - Constitutional Vitals: Vital Signs Temp Pulse Resp BP Pulse Ox 01/11/18 15:00 98.5 F 109 18 154/84 93 01/11/18 11:12 98.9 F 106 17 140/79 94 01/11/18 07:19 99.0 F 108 17 167/97 94 01/10/18 23:50 99.1 F 108 18 154/80 93 01/10/18 19:51 98.5 F 113 18 150/83 94 01/10/18 16:00 78 157/86 Intake and Output 01/10/18 01/11/18 01/11/18 23:59 07:59 15:59 Intake Total 780 / 780 0 / 0 3030 / 3030 Output Total 1999 3925 / 3925 550 / 550 Balance -1220 / -1220 -3925 / -3925 2480 / 2480 Intake: Oral 780 / 780 0 / 0 3030 / 3030 Output: Urine 3100 / 3100 Catheter 1999 825 / 825 550 / 550 Other: Meal Lunch Lunch Percent of Meal Consumed 100% 100% Blood Glucose* 241 121 183 General appearance: cooperative, no acute distress, obese, no febrile - Head Head exam: Present: atraumatic - ENT ENT exam: Present: mucous membranes moist - Respiratory Respiratory exam: Present: rhonchi. Absent: respiratory distress - Cardiovascular Cardiovascular exam: Present: RRR, +S1, +S2, tachycardia - GI/Abdominal GI/Abdominal exam: Present: normal bowel sounds, soft. Absent: guarding, rebound, tenderness - Extremities Exam Extremities exam: Absent: calf tenderness Additional comments: dressing to BLE - Neurological Exam Neurological exam: Present: alert, oriented X3, no focal deficits, strengths equal and symetr throughout - Psychiatric Psychiatric exam: Present: normal affect, normal mood - Skin Skin exam: Present: dry, intact, normal color, warm Oncology: Obj Data - Labs CBC & Chem 7: 01/12/18 04:00 01/12/18 04:00 - Impressions Impressions Chest CTA 01/10/18 22:27 IMPRESSION: No evidence of pulmonary embolism. Right middle lobe mass with extension into the right hilum and right mediastinum. There are adrenal and hepatic metastases as well as described above. Small bilateral pleural effusions and associated consolidation which could represent atelectasis or pneumonia. D/ / Igor Westfall MD / Igor Westfall MD Interpreting Provider: Igor Westfall MD - ABG Interpretation ABG results: PT/INR, D-dimer PT 11.2 Seconds (9.4-12.1) 01/04/18 18:28 Consult Discharge Plan - Plan Referrals: Micheal Dickerson DO [Primary Care Provider] - 01/28/18 4:30 pm
[2018-01-11] MEDS: Simethicone 80 MG TAB.CHEW PO PRN (21:18)
[2018-01-11] MEDS: Insulin DETEMIR 100 UNIT/ML X5UNITS SQ SCH (21:28)
[2018-01-11] MEDS: Ipratropium/Albuterol Neb 3 ML IH PRN (23:05)
[2018-01-12] MEDS ORDERED: Magnesium Sulfate 2 GM in D5% in Water 100 ML IVPB ONE (03:40)
[2018-01-12] MEDS ORDERED: 0.9 % Sodium Chloride 500 ML IVC ONE (03:43)
[2018-01-12] MEDS: Piperacillin/Tazobactam 3.375 GM in 0.9 % Sodium Chloride Mini Bag 100 ML IVPB SCH ×3 (06:03→22:48)
[2018-01-12 06:30] LABS: Hemoglobin 9.6 g/dL (11.5-15.4); Mean Corpuscular HGB Conc 35.6 g/dL (31.6-35.5); Mean Corpuscular Hemoglobin 30.2 pg (28.0-33.3); Mean Corpuscular Volume 84.9 fL (83.0-100.0); Mean Platelet Volume 10.2 fL (9.4-12.4); Platelet Count 134 K/mcL (140-400); Red Blood Count 3.18 M/mcL (3.82-4.97); Red Cell Distribution Width 15.2 % (11.5-14.5)
[2018-01-12 06:43] LABS: BUN/Creatinine Ratio 29 (6-26); Blood Urea Nitrogen 28 mg/dL (8-23); Calcium 7.3 mg/dL (8.6-10.3); Carbon Dioxide 24 mEq/L (23-29); Chloride 90 mEq/L (98-107); Glucose 184 mg/dL (70-105); Osmolality,Calculated 272 (280-300); Potassium 3.3 mEq/L (3.5-5.1); Sodium 126 mEq/L (136-145); eGFR For African Americans > 60 (> 60); eGFR For Non-African Americans 57 (> 60)
--- NOTE | 2018-01-12 08:24 | Event Note ---
Date of Encounter: 01/12/18 Time of Encounter: 08:05 Notified by nurse around 1:00am that garcia cath was clogged by a cot but no blood visibly seen in the urine. Cath was removed and new catheter was attempted to placed but patient started bleeding more during replacement. Garcia was discontinued due to this and instructed nurse to do frequent changes to keep sacral ulcers dry. Patient did also become more tachycardic up to 130 during the attempt at garcia change which may have been due to pain and agitation , but I do not believe blood loss was significant enough to cause tachycardia. She has been tachycardic much of her hospital visit. EKG showed sinus tachycardia. Patient was given 1L bolus and tachycardia improved a little down to 116. Hemoglobin was checked at 4AM and had decreased from 10.9 to 9.9, but this could be partially dilutional and patient starting chemo. Morning Heparin SQ was held. Primary hospitalist was notified of overnight events.
[2018-01-12] MEDS: *HR* Heparin 5,000 UNIT/ML VIAL SQ SCH ×2 (08:38→14:43)
[2018-01-12] MEDS: Insulin LISPRO 300 UNITS/3 ML VIAL SQ SCH ×4 (10:17→21:33)
[2018-01-12] MEDS: Valsartan 160 MG TABLET PO SCH (10:28)
[2018-01-12] MEDS: BuPROPion SR (12 HR) 100 MG TABLET PO SCH ×2 (10:29→21:57)
[2018-01-12] MEDS: Aspirin 81 MG TAB.CHEW PO SCH (10:29)
--- NOTE | 2018-01-12 12:10 | Internal Med Progress Note ---
Date of Encounter: 01/12/18 Time of Encounter: 12:00 - Assessment and plan (1) Small cell lung cancer Current Visit: Yes Status: Acute Assessment and plan: OSH chest CT showed a RML mass with mediastinal and right hilar adenopathy highly suggestive of bronchiogenic carcinoma with nodular metastatic disease. ABD/pelvis CT showed innumerable hepatic hypodensities and bilateral adrenal masses consistent with metastatic disease. MRI of lumbar region suspicious for mets to the spine. 01/06/18 Liver biopsy pathology consist with small cell; official report pending. Oncology following and chemo initiated 01/07/18. Monitor daily CBC and CMP. Chemo precautions. Anti-emetics PRN (2) Pneumonia Current Visit: Yes Status: Acute Assessment and plan: chest CTA concerning for bilateral pneumonia. Symptomatic with cough, rhonchi, tachycardia and low-grade fever. High risk for complications with new malignancy and initiation of chemotherapy. Start vanco and zosyn. Respiratory PCR, urinary antigens pending. Aggressive IS Qualifiers: Pneumonia type: due to unspecified organism Laterality: bilateral Lung location: lower lobe of lung Qualified Code(s): J18.1 - Lobar pneumonia, unspecified organism (3) Gross hematuria Current Visit: Yes Status: Acute Assessment and plan: Urology following. will d/c heparin. Hematuria catheter placed (4) CVA (cerebral vascular accident) Current Visit: Yes Status: Acute Assessment and plan: presented with acute confusion. Head CT unremarkable. Brain MRI showed multiple tiny infarcts to left occipital lobe. TTE with EF 65%, no evidence of PFO or cardiac source of emboli. Carotid artery duplex showed bilateral 60-79% bilateral ICA stnosis; evaluated by Neurology who suspected likely incidental finding and not related to her current ischemic infarct therefore would not recommend further investigation at this time but will need annual monitoring in the form of carotid artery duplex. Cont ASA Qualifiers: CVA mechanism: unspecified Qualified Code(s): I63.9 - Cerebral infarction, unspecified (5) Acute metabolic encephalopathy Current Visit: Yes Status: Acute Assessment and plan: suspect acute metabolic encephalopathy multifactorial with new acute CVA, elevated ammonia level and underling malignancy. Continue treating underlying causes. Mentation significantly improved as of 01/08 (6) Transaminitis Current Visit: Yes Status: Acute Assessment and plan: Mild transaminitis. Likely secondary to liver metastasis. Intermittently monitor. (7) Hyperammonemia Current Visit: Yes Status: Acute Assessment and plan: Likely 2/2 to liver mets. Ammonia level 56; see one-time dose lactulose. Repeat ammonia normal. (8) DVT prophylaxis Current Visit: Yes Status: Acute Assessment and plan: Heparin (9) Diabetes type 2, uncontrolled Current Visit: Yes Status: Chronic Assessment and plan: per hx. Hgb A1c 10%. Holding home oral hypoglycemics. Start long acting daily at bedtime. SSI. Monitor blood sugars and titrate PRN. Qualifiers: Diabetes mellitus mcfp insulin use: with mcfp use Diabetes mellitus complication status: with circulatory complication Diabetes mellitus complication detail: with other circulatory complications Qualified Code(s): E11.59 - Type 2 diabetes mellitus with other circulatory complications; E11.65 - Type 2 diabetes mellitus with hyperglycemia; Z79.4 - retirement (current) use of insulin (10) Wounds, multiple open, lower extremity Current Visit: Yes Status: Acute Assessment and plan: present on admission. Cont local wound care Qualifiers: Encounter type: initial encounter Laterality: left Qualified Code(s): S81.802A - Unspecified open wound, left lower leg, initial encounter (11) Hypokalemia Current Visit: Yes Status: Acute Assessment and plan: Likely secondary to chemotherapy. Monitor daily and replace PRN. Mg pending (12) Hypocalcemia Current Visit: Yes Status: Acute Assessment and plan: Likely secondary to chemotherapy. Monitor CMP daily and replace PRN (13) UTI (urinary tract infection) Current Visit: Yes Status: Acute Assessment and plan: UA indicative of UTI. Cont IV zosyn. Follow urine cx Qualifiers: Urinary tract infection type: acute cystitis Hematuria presence: without hematuria Qualified Code(s): N30.00 - Acute cystitis without hematuria (14) Anemia Current Visit: Yes Status: Acute Assessment and plan: likely secondary to chemo. Hgb 9.7 on 01/11. No active bleeding. Monitor H&H Qualifiers: Other causes of anemia: antineoplastic chemotherapy Qualified Code(s): D64.81 - Anemia due to antineoplastic chemotherapy; T45.1X5A - Adverse effect of antineoplastic and immunosuppressive drugs, initial encounter (15) Hyponatremia Current Visit: Yes Status: Acute Assessment and plan: Will give IV fluids with normal saline - Time Spent With Patient Total time spent is greater than 50% in coordination of care (as documented) at patient's floor/unit and/or counseling patient: - Subjective Interval history: Had episode of hematuria overnight - Constitutional Vitals: Temp Pulse Resp BP Pulse Ox 98.5 F 107 16 135/74 94 01/12/18 11:13 01/12/18 11:13 01/12/18 11:13 01/12/18 11:13 01/12/18 11:13 General appearance: Present: A&O X 3, morbidly obese, no acute distress - Head Head exam: Present: atraumatic, normocephalic - Eye Eye exam: Present: PERRL, conjuntiva pink, sclera anicteric Pupils: Present: PERRL - Neck Neck exam general surgery: Present: supple, trachea midline. Absent: lymphadenopathy - Respiratory Respiratory exam: Present: CTAB. Absent: accessory muscle use, rales, rhonchi, wheezes - Cardiovascular Cardiovascular exam: Present: RRR, +S1, +S2. Absent: diastolic murmur, gallop, rubs, systolic murmur - GI/Abdominal GI/Abdominal exam: Present: normal bowel sounds, soft, no peritoneal signs. Absent: distended, tenderness - Extremities Exam Extremities exam: Present: warm, radial pulses palpable and symmetrical. Absent : calf tenderness, cyanotic, pedal edema - Neurological Exam Neurological exam: Present: CN II-XII intact, oriented X3, no focal deficits. Absent: pronater drift, facial droop, speech deficit - Skin Skin exam: Present: dry, intact Internal Medicine: Result - Labs CBC & Chem 7: 01/12/18 04:00 01/12/18 04:00 Labs: Short CBC 01/12/18 Range/Units 04:00 WBC 8.6 (4.3-11.1) K/mcL Hgb 9.6 L (11.5-15.4) g/dL Hct 27.0 L (35.3-44.9) % Plt Count 134 L (140-400) K/mcL BMP 01/12/18 04:00 Sodium 126 L Potassium 3.3 L Chloride 90 L Carbon Dioxide 24 BUN 28 H Creatinine 0.98 Glucose 184 H Calcium 7.3 L - ABG Interpretation ABG results: PT/INR, D-dimer PT 11.2 Seconds (9.4-12.1) 06/11/18 18:28 Consult Discharge Plan - Plan Referrals: Micheal Dickerson DO [Primary Care Provider] - 01/28/18 4:30 pm
[2018-01-12] MEDS ORDERED: Isovue-370 500 ML INFUS..BTL IV ONE (12:38)
[2018-01-12 13:00] LABS: Troponin I 0.05 ng/mL (< 0.04)
[2018-01-12 13:08] LABS: Thyroid Stimulating Hormone 1.193 mcIU/mL (0.340-5.600)
[2018-01-12] MEDS: Potassium Chloride Elixir 20 MEQ/15 ML UDC PO SCH ×2 (14:51→19:31)
[2018-01-12] MEDS: 0.9 % Sodium Chloride w KCl 20 MEQ/1,000 ML MLS IVC SCH (14:52)
--- NOTE | 2018-01-12 15:23 | Palliative - Consult Note ---
<Pepper Brown - Last Filed: 01/12/18 15:18> Date of Encounter: 01/12/18 Time of Encounter: 15:18 - Assessment and Plan (1) Goals of care, counseling/discussion Current Visit: Yes Status: Acute Assessment and plan: Had a discussion with the patient about goals of care. Code status = Full code. She wishes her daughter to be her mPOA, with her sister as a second. [This was discussed with social work.] She hopes to be discharged to [facility] this afternoon for rehab. Palliative care will sign off at this time. Thank-you for the consult. (2) Small cell lung cancer Current Visit: Yes Status: Acute Assessment and plan: Wishes for chemotheraphy as long as she can tolerate it. Palliative-CN HPI - Data of Consult Patient: new to practice Consult date: 01/12/18 Requesting Physician: Pablo Thompson MD Primary Care Provider: Zuly Tavares - Consult Narrative Palliative Care/Comfort Measures: Palliative care Reason for consult: goals of care History of present illness: Ms. Gracia is a 62 year old female admitted for acute encephalopathy and found to have acute CVA and new diagnosis of small cell lung cancer. Her encephalopathy has resolved with recent chemotherapy. Palliative care was consulted for goals of care. CC: Pablo Thompson MD Past Med Surg Social Fam HX - Past Medical History Medical history: arthritis, cancer, COPD, diabetes, hypertension, other Additional medical history: Lung. Liver METS Psychiatric history: anxiety, depression - Past Surgical History Surgical History: , cancer surgery, cataract, cholecystectomy, hysterectomy, other Additional surgical history: toe removal - Social History Smoking Status: Former smoker Smokeless Tobacco Status: Yes Alcohol use: none Drug use: none Medications and Allergies Albiglutide [Tanzeum] 15 mg SQ QWEEK 06/24/16 [History] Atorvastatin Calcium [Lipitor] 80 mg PO DAILY 06/24/16 [History] BuPROPion SR (12 HR) [Wellbutrin SR] 200 mg PO BID 06/24/16 [History] Cyclobenzaprine [Flexeril] 10 mg PO HS 06/24/16 [History] Gabapentin [Neurontin] 600 mg PO HS 06/24/16 [History] GlipiZIDE [Glipizide Xl] 5 mg PO BID 06/24/16 [History] Montelukast [Singulair] 10 mg PO DAILY 06/24/16 [History] Sertraline [Zoloft] 100 mg PO DAILY 06/24/16 [History] TraZODone 75 mg PO HS 06/24/16 [History] metFORMIN [Glucophage] 1,000 mg PO BID 06/24/16 [History] Meloxicam [Meloxicam] 15 mg PO DAILY 01/05/18 [History] Valsartan [Valsartan] 160 mg PO DAILY 01/05/18 [History] 3 Allergy/AdvReac Type Severity Reaction Status Date / Time Sulfa (Sulfonamide Allergy Hives Verified 06/24/16 01:33 Antibiotics) Palliative Care-Exam - Constitutional Vitals: Temp Pulse Resp BP Pulse Ox 99 F 100 16 145/77 93 01/12/18 15:14 01/12/18 15:14 01/12/18 15:14 01/12/18 15:14 01/12/18 15:14 General appearance: Present: cooperative, no acute distress, obese. Absent: febrile - Head Head Exam: Present: atraumatic, normocephalic - Eye Eye exam: Present: normal appearance - ENT ENT exam: Present: mucous membranes moist - Neck Neck exam: Present: normal inspection - Respiratory Respiratory exam: Absent: accessory muscle use, CTAB - Expanded Respiratory Exam Location: rhonchi: Left, Right, wheezes: Left, Right - Cardiovascular Cardiovascular exam: Present: RRR - GI/Abdominal Exam GI/Abdominal exam: Present: normal bowel sounds, soft. Absent: tenderness - Extremities Exam Additional comments: bilateral lower extremities wrapped in KAVYA bandages with pitting edema - Neurological Exam Neurological exam: Present: alert, oriented X3. Absent: facial droop, speech deficit - Psychiatric Psychiatric exam: Present: normal affect, normal mood Internal Medicine - CN: Reslt - Labs CBC & Chem 7: 01/12/18 04:00 01/12/18 04:00 Labs: Short CBC 01/12/18 Range/Units 04:00 WBC 8.6 (4.3-11.1) K/mcL Hgb 9.6 L (11.5-15.4) g/dL Hct 27.0 L (35.3-44.9) % Plt Count 134 L (140-400) K/mcL BMP 01/12/18 04:00 Sodium 126 L Potassium 3.3 L Chloride 90 L Carbon Dioxide 24 BUN 28 H Creatinine 0.98 Glucose 184 H Calcium 7.3 L Cardiac Enzymes 01/12/18 Range/Units 12:19 Troponin I 0.05 H* (< 0.04) ng/mL - ABG Interpretation ABG results: PT/INR, D-dimer PT 11.2 Seconds (9.4-12.1) 01/04/18 18:28 Consult Discharge Plan - Plan Referrals: Micheal Dickerson DO [Primary Care Provider] - 01/28/18 4:30 pm Palliative Quality Palliative Quality: Screen for Code Status: Yes, Screen for Goals of Care: Yes, Screen for Pain: NA, If Pain Regimen Started, Initiate Bowel Regimen: NA, Screen for Nausea/Vomitting: NA Code Status: Full Code <Onel Plummer - Last Filed: 01/12/18 15:45> Date of Encounter: 01/12/18 Palliative-CN HPI - Data of Consult Requesting Physician: Pablo Thompson MD Primary Care Provider: Zuly Tavares - Consult Narrative History of present illness: Ms. Gracia is a 62 year old female CC: Pablo Thompson MD Palliative Care-Exam - Constitutional Vitals: Temp Pulse Resp BP Pulse Ox 99 F 100 16 145/77 93 01/12/18 15:14 01/12/18 15:14 01/12/18 15:14 01/12/18 15:14 01/12/18 15:14 Internal Medicine - CN: Reslt - Labs CBC & Chem 7: 01/12/18 04:00 01/12/18 04:00 Labs: Short CBC 01/12/18 Range/Units 04:00 WBC 8.6 (4.3-11.1) K/mcL Hgb 9.6 L (11.5-15.4) g/dL Hct 27.0 L (35.3-44.9) % Plt Count 134 L (140-400) K/mcL [facility] 01/12/18 04:00 Sodium 126 L Potassium 3.3 L Chloride 90 L Carbon Dioxide 24 BUN 28 H Creatinine 0.98 Glucose 184 H Calcium 7.3 L Cardiac Enzymes 01/12/18 Range/Units 12:19 Troponin I 0.05 H* (< 0.04) ng/mL - ABG Interpretation ABG results: PT/INR, D-dimer PT 11.2 Seconds (9.4-12.1) 01/04/18 18:28 - Impressions Impressions Abdomen/Pelvis CT 01/12/18 12:38 IMPRESSION: Multiple metastatic lesions scattered throughout the liver similar to the prior exam Bilateral adrenal masses unchanged from prior exam Anasarca and a small amount of ascites seen along both left and right paracolic gutter regions. The bladder is filled with contrast there several small pockets air within the bladder which may be secondary to prior catheterization is no bladder wall thickening. Both the left and right kidneys and ureters appear normal. D/ / Polo Saunders MD / Polo Saunders MD Interpreting Provider: Polo Saunders MD - Attending Attestation The history, physical exam, and medical decision making was performed by the medical student while I was physically present and actively involved. I personally re-performed the exam and medical decision making. I have verified the accuracy of the medical student's documentation with regards to the history , physical exam findings, and medical decision making. As above, discussed at length with the patient regarding need for medical power of document review attorney as stated resident Dr. Brown. Patient understands if she does get discharged today to investigate having this done at the shelter. Patient is anticipating the possibility being discharged today. As already noted in Dr. Brown's note we have now established patient definitely wants to be a full code at least at this time she does understand where hospice fits into the picture that she may change her CODE STATUS at any time without changing her desire for aggressive chemotherapy. She will be discharged either later today or tomorrow palliative care will sign off thank you very much for this consult.
--- NOTE | 2018-01-12 16:07 | Urology - Consult Note ---
<Jessica Lozano N - Last Filed: 01/12/18 16:09> Date of Encounter: 01/12/18 Time of Encounter: 16:05 - Assessment and Plan (1) Gross hematuria Current Visit: Yes Status: Acute Assessment and plan: Patient is a 62 yo female admitted for complications related to small cell lung adenocarcinoma. Consulted for gross hematuria. Reviewed CT scan with Dr. Mondragon. Significant distention of bladder. Elected to place hematuria catheter with CBI tubing. Keep in place for patient's overall condition. Will reassess if patient requires CBI. Hold any anticoagulation if possible. Continue antibiotic infusions for UTI. Will continue to follow. No other aggressive intervention required at this time. Urology CN:HPI Consult date: 01/12/18 Reason for consult Urology: Gross Hematuria (urinary incontinence) History of present illness: Patient admitted for abnormal labs relating to small cell lung carcinoma. Patient has multiple metastases. Patient placed on anticoagulants on admission. Noticed gross hematuria 2 days ago. Patient denies any known history of hematuria in the past. Denies personal or family history of urologic cancer. Patient states she is s/p hysterectomy. Patient is incontinent and denies dysuria, urgency, frequency, hesitancy. CT abd/pelvis and labs reviewed. Past Med Surg Social Fam HX - Past Medical History Medical history: arthritis, cancer, COPD, diabetes, hypertension, other Additional medical history: Lung. Liver METS Psychiatric history: anxiety, depression - Past Surgical History Surgical History: , cancer surgery, cataract, cholecystectomy, hysterectomy, other Additional surgical history: toe removal - Social History Smoking Status: Former smoker Smokeless Tobacco Status: Yes Alcohol use: none Drug use: none - Additional Family History Additional family history: Patient denies known family history of bladder or renal cancer. Medications and Allergies Albiglutide [Tanzeum] 15 mg SQ QWEEK 06/24/16 [History] Atorvastatin Calcium [Lipitor] 80 mg PO DAILY 06/24/16 [History] BuPROPion SR (12 HR) [Wellbutrin SR] 200 mg PO BID 06/24/16 [History] Cyclobenzaprine [Flexeril] 10 mg PO HS 06/24/16 [History] Gabapentin [Neurontin] 600 mg PO HS 06/24/16 [History] GlipiZIDE [Glipizide Xl] 5 mg PO BID 06/24/16 [History] Montelukast [Singulair] 10 mg PO DAILY 06/24/16 [History] Sertraline [Zoloft] 100 mg PO DAILY 06/24/16 [History] TraZODone 75 mg PO HS 06/24/16 [History] metFORMIN [Glucophage] 1,000 mg PO BID 06/24/16 [History] Meloxicam [Meloxicam] 15 mg PO DAILY 01/05/18 [History] Valsartan [Valsartan] 160 mg PO DAILY 01/05/18 [History] 3 Allergy/AdvReac Type Severity Reaction Status Date / Time Sulfa (Sulfonamide Allergy Hives Verified 06/24/16 01:33 Antibiotics) Review of Systems - Constitutional as per HPI, fatigue, weakness - Gastrointestinal fecal incontinence, no abdominal pain, no change in bowel habits, no nausea, no vomiting - Genitourinary Genitourinary: as per HPI, post void dribbling, urinary incontinence, no change in urinary stream, no difficulty urinating, no difficulty voiding, no dysuria, no flank pain, no genital lesions, no genital pruritis, no pelvic pain, no urinary frequency, no urinary hesitancy Menstruation: as per HPI, post hysterectomy - Integumentary no lesions, no rash, no swelling - Neurological as per HPI, confusion, weakness Exam Initial Vital Signs Temp Pulse Resp BP Pulse Ox 97.4 F L 95 18 163/77 92 01/04/18 17:34 01/04/18 17:34 01/04/18 17:34 01/04/18 17:34 01/04/18 17:34 - General physical appearance Present: well developed, no distress, no pain, obese - Eyes Present: PERRL, normal ocular movement - Respiratory Present: normal respiratory effort - Abdomen Abdomen: Present: soft, non tender, surgical scars - Genitourinary Present: normal external genitalia, other (Patient has geographic zakia rash in abdominal pannus and bilateral groin; Wine colored blood at introitus ) - Integumentary Present: no growths, no abnormal pigmentation - Neurologic Present: other (patient somnolent ) Urology Results - Labs 01/12/18 04:00 01/12/18 04:00 Abnormal lab results RBC 3.18 M/mcL (3.82-4.97) L 01/12/18 04:00 Hgb 9.6 g/dL (11.5-15.4) L 01/12/18 04:00 Hct 27.0 % (35.3-44.9) L 01/12/18 04:00 MCHC 35.6 g/dL (31.6-35.5) H 01/12/18 04:00 RDW 15.2 % (11.5-14.5) H 01/12/18 04:00 Plt Count 134 K/mcL (140-400) L 01/12/18 04:00 Lymphocytes # 0.3 K/mcL (0.6-4.6) L 01/06/18 04:58 APTT 22.4 Seconds (26.0-36.0) L 01/04/18 18:28 Sodium 126 mEq/L (136-145) L 01/12/18 04:00 Potassium 3.3 mEq/L (3.5-5.1) L 01/12/18 04:00 Chloride 90 mEq/L (98-107) L 01/12/18 04:00 BUN 28 mg/dL (8-23) H 01/12/18 04:00 Est GFR (Non-Af Amer) 57 (> 60) L 01/12/18 04:00 BUN/Creatinine Ratio 29 (6-26) H 01/12/18 04:00 Glucose 184 mg/dL (70-105) H 01/12/18 04:00 POC Glucose 206 mg/dL (70-99) H 01/12/18 11:06 Hemoglobin A1c 10.0 % (-5.6) H 01/06/18 04:58 Calculated Osmolality 272 (280-300) L 01/12/18 04:00 Calcium 7.3 mg/dL (8.6-10.3) L 01/12/18 04:00 Phosphorus 2.2 mg/dL (2.7-4.5) L 01/06/18 04:58 Direct Bilirubin 0.3 mg/dL (0.0-0.2) H 01/04/18 18:28 ALT 64 Units/L (7-52) H 01/04/18 18:28 Alkaline Phosphatase 230 Units/L (34-104) H 01/04/18 18:28 Lactate Dehydrogenase 528 Units/L (140-271) H 01/09/18 02:15 Troponin I 0.05 ng/mL (< 0.04) H* 01/12/18 12:19 Serum Total Protein 5.2 g/dL (6.4-8.9) L 01/04/18 18:28 Albumin 3.1 g/dL (3.5-5.7) L 01/04/18 18:28 Globulin 2.1 g/dL (2.4-3.5) L 01/04/18 18:28 Beta-Hydroxybutyric Acd > 2.00 mmol/L (0.02-0.27) H 01/04/18 18:20 Urine Clarity Cloudy (Clear) A 01/10/18 15:00 Urine Protein 100 mg/dL (Neg-Trace) H 01/10/18 15:00 Urine Blood Large (Negative) H 01/10/18 15:00 Ur Leukocyte Esterase Moderate (Negative) H 01/10/18 15:00 Urine Microscopic RBC TNTC per hpf (0-3) H 01/10/18 15:00 Urine Microscopic WBC TNTC per hpf (0-3) H 01/10/18 15:00 Ur Squamous Epith Cells Moderate per lpf (None-Few) H 01/10/18 15:00 Urine Bacteria Many per hpf (None-Few) H 01/10/18 15:00 Ur Culture Indicated? YES (NO) A 01/10/18 15:00 Vancomycin Trough 17 mcg/mL (5-10) H 01/12/18 13:39 Diabetes panel 01/12/18 Range/Units 04:00 Sodium 126 L (136-145) mEq/L Potassium 3.3 L (3.5-5.1) mEq/L Chloride 90 L (98-107) mEq/L Carbon Dioxide 24 (23-29) mEq/L BUN 28 H (8-23) mg/dL Creatinine 0.98 (0.60-1.20) mg/dL Glucose 184 H (70-105) mg/dL Calcium 7.3 L (8.6-10.3) mg/dL Thyroid panel 01/12/18 Range/Units 12:19 TSH 1.193 (0.340-5.600) mcIU/mL Calcium panel 01/12/18 Range/Units 04:00 Calcium 7.3 L (8.6-10.3) mg/dL Pituitary panel 01/12/18 01/12/18 Range/Units 04:00 12:19 Sodium 126 L (136-145) mEq/L Potassium 3.3 L (3.5-5.1) mEq/L Chloride 90 L (98-107) mEq/L Carbon Dioxide 24 (23-29) mEq/L BUN 28 H (8-23) mg/dL Creatinine 0.98 (0.60-1.20) mg/dL Glucose 184 H (70-105) mg/dL Calcium 7.3 L (8.6-10.3) mg/dL TSH 1.193 (0.340-5.600) mcIU/mL Adrenal panel 01/12/18 Range/Units 04:00 Sodium 126 L (136-145) mEq/L Potassium 3.3 L (3.5-5.1) mEq/L Chloride 90 L (98-107) mEq/L Carbon Dioxide 24 (23-29) mEq/L BUN 28 H (8-23) mg/dL Creatinine 0.98 (0.60-1.20) mg/dL Glucose 184 H (70-105) mg/dL Calcium 7.3 L (8.6-10.3) mg/dL All other labs normal. - Imaging CT scan - abdomen: image reviewed CT scan - pelvis: image reviewed Procedures:Urology - Catheter Insertion (Urinary) Bladder Scan/Ultrasound used before catheterization: No Estimated amount of urin (mLs): 200 Preparation: Povidone-Iodine Type of catheter inserted: 3 way, other (Hematuria catheter with CBI tubing ) Topical anesthesia used: No Results: successfully catheterized-immediate flow Urine Appearance: Hematuria Complications: none Consult Discharge Plan - Plan Referrals: Micheal Dickerson DO [Primary Care Provider] - 01/28/18 4:30 pm <Donny Mondragon - Last Filed: 01/12/18 17:45> Date of Encounter: 01/12/18 Exam Initial Vital Signs Temp Pulse Resp BP Pulse Ox 97.4 F L 95 18 163/77 92 01/04/18 17:34 01/04/18 17:34 01/04/18 17:34 01/04/18 17:34 01/04/18 17:34 Urology Results - Labs 01/12/18 04:00 01/12/18 04:00 Abnormal lab results RBC 3.18 M/mcL (3.82-4.97) L 01/12/18 04:00 Hgb 9.6 g/dL (11.5-15.4) L 01/12/18 04:00 Hct 27.0 % (35.3-44.9) L 01/12/18 04:00 MCHC 35.6 g/dL (31.6-35.5) H 01/12/18 04:00 RDW 15.2 % (11.5-14.5) H 01/12/18 04:00 Plt Count 134 K/mcL (140-400) L 01/12/18 04:00 Lymphocytes # 0.3 K/mcL (0.6-4.6) L 01/06/18 04:58 APTT 22.4 Seconds (26.0-36.0) L 01/04/18 18:28 Sodium 126 mEq/L (136-145) L 01/12/18 04:00 Potassium 3.3 mEq/L (3.5-5.1) L 01/12/18 04:00 Chloride 90 mEq/L (98-107) L 01/12/18 04:00 BUN 28 mg/dL (8-23) H 01/12/18 04:00 Est GFR (Non-Af Amer) 57 (> 60) L 01/12/18 04:00 BUN/Creatinine Ratio 29 (6-26) H 01/12/18 04:00 Glucose 184 mg/dL (70-105) H 01/12/18 04:00 POC Glucose 183 mg/dL (70-99) H 01/12/18 16:32 Hemoglobin A1c 10.0 % (-5.6) H 01/06/18 04:58 Calculated Osmolality 272 (280-300) L 01/12/18 04:00 Calcium 7.3 mg/dL (8.6-10.3) L 01/12/18 04:00 Phosphorus 2.2 mg/dL (2.7-4.5) L 01/06/18 04:58 Direct Bilirubin 0.3 mg/dL (0.0-0.2) H 01/04/18 18:28 ALT 64 Units/L (7-52) H 01/04/18 18:28 Alkaline Phosphatase 230 Units/L (34-104) H 01/04/18 18:28 Lactate Dehydrogenase 528 Units/L (140-271) H 01/09/18 02:15 Troponin I 0.05 ng/mL (< 0.04) H* 01/12/18 12:19 Serum Total Protein 5.2 g/dL (6.4-8.9) L 01/04/18 18:28 Albumin 3.1 g/dL (3.5-5.7) L 01/04/18 18:28 Globulin 2.1 g/dL (2.4-3.5) L 01/04/18 18:28 Beta-Hydroxybutyric Acd > 2.00 mmol/L (0.02-0.27) H 01/04/18 18:20 Urine Clarity Cloudy (Clear) A 01/10/18 15:00 Urine Protein 100 mg/dL (Neg-Trace) H 01/10/18 15:00 Urine Blood Large (Negative) H 01/10/18 15:00 Ur Leukocyte Esterase Moderate (Negative) H 01/10/18 15:00 Urine Microscopic RBC TNTC per hpf (0-3) H 01/10/18 15:00 Urine Microscopic WBC TNTC per hpf (0-3) H 01/10/18 15:00 Ur Squamous Epith Cells Moderate per lpf (None-Few) H 01/10/18 15:00 Urine Bacteria Many per hpf (None-Few) H 01/10/18 15:00 Ur Culture Indicated? YES (NO) A 01/10/18 15:00 Vancomycin Trough 17 mcg/mL (5-10) H 01/12/18 13:39 Diabetes panel 01/12/18 Range/Units 04:00 Sodium 126 L (136-145) mEq/L Potassium 3.3 L (3.5-5.1) mEq/L Chloride 90 L (98-107) mEq/L Carbon Dioxide 24 (23-29) mEq/L BUN 28 H (8-23) mg/dL Creatinine 0.98 (0.60-1.20) mg/dL Glucose 184 H (70-105) mg/dL Calcium 7.3 L (8.6-10.3) mg/dL Thyroid panel 01/12/18 Range/Units 12:19 TSH 1.193 (0.340-5.600) mcIU/mL Calcium panel 01/12/18 Range/Units 04:00 Calcium 7.3 L (8.6-10.3) mg/dL Pituitary panel 01/12/18 01/12/18 Range/Units 04:00 12:19 Sodium 126 L (136-145) mEq/L Potassium 3.3 L (3.5-5.1) mEq/L Chloride 90 L (98-107) mEq/L Carbon Dioxide 24 (23-29) mEq/L BUN 28 H (8-23) mg/dL Creatinine 0.98 (0.60-1.20) mg/dL Glucose 184 H (70-105) mg/dL Calcium 7.3 L (8.6-10.3) mg/dL TSH 1.193 (0.340-5.600) mcIU/mL Adrenal panel 01/12/18 Range/Units 04:00 Sodium 126 L (136-145) mEq/L Potassium 3.3 L (3.5-5.1) mEq/L Chloride 90 L (98-107) mEq/L Carbon Dioxide 24 (23-29) mEq/L BUN 28 H (8-23) mg/dL Creatinine 0.98 (0.60-1.20) mg/dL Glucose 184 H (70-105) mg/dL Calcium 7.3 L (8.6-10.3) mg/dL All other labs normal. - Attending Attestation pt seen and examined by myself. I agree with PA note and recs. I started CBI bc of hematuria. will assess in AM. OK to irrigate as needed for clots. hold all blood thinners if possible.
--- NOTE | 2018-01-12 17:28 | Electrocardiograph Report ---
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
[2018-01-12] MEDS: Insulin DETEMIR 100 UNIT/ML X5UNITS SQ SCH (21:51)
[2018-01-13 00:53] LABS: Hematocrit 17.7 % (35.3-44.9); Hemoglobin 6.2 g/dL (11.5-15.4); Mean Corpuscular Hemoglobin 30.5 pg (28.0-33.3); Mean Corpuscular Volume 87.2 fL (83.0-100.0); Mean Platelet Volume 10.7 fL (9.4-12.4); Red Blood Count 2.03 M/mcL (3.82-4.97); Red Cell Distribution Width 15.4 % (11.5-14.5)
[2018-01-13 03:47] LABS: BUN/Creatinine Ratio 37 (6-26); Blood Urea Nitrogen 29 mg/dL (8-23); Calcium 7.4 mg/dL (8.6-10.3); Carbon Dioxide 26 mEq/L (23-29); Chloride 96 mEq/L (98-107); Glucose 139 mg/dL (70-105); Osmolality,Calculated 278 (280-300); Potassium 3.3 mEq/L (3.5-5.1); Sodium 130 mEq/L (136-145); eGFR For African Americans > 60 (> 60); eGFR For Non-African Americans > 60 (> 60)
[2018-01-13] MEDS: 0.9 % Sodium Chloride w KCl 20 MEQ/1,000 ML MLS IVC SCH ×2 (05:47→19:25)
[2018-01-13] MEDS: Piperacillin/Tazobactam 3.375 GM in 0.9 % Sodium Chloride Mini Bag 100 ML IVPB SCH (05:52)
--- NOTE | 2018-01-13 06:52 | Event Note ---
Date of Encounter: 01/13/18 Time of Encounter: 06:43 Notified by nurse that hemoglobin was 6.2. Repeat hemoglobin was redrawn immediately resulting in hemoglobin= 7.4. Patient's vitals were stable and HR wnl. Patient had had some hematuria but hard to measure as bladder is being irrigated. Due to repeat being greatert than 7.0 and patient asymptomatic. Patient typed and screened. Will repeat hemoglobin at 7:30AM and decide if need transfusion at that time.
--- NOTE | 2018-01-13 07:13 | Urology Progress Note ---
Date of Encounter: 01/13/18 Time of Encounter: 07:11 - Assessment and Plan (1) Gross hematuria Current Visit: Yes Status: Acute Assessment and plan: resolving with CBI. should be able to turn off soon. will manage with cath ( do not remove). Progress Note Narrative: pt asleep. urine clearing. Objective Initial Vital Signs Temp Pulse Resp BP Pulse Ox 97.4 F L 95 18 163/77 92 01/04/18 17:34 01/04/18 17:34 01/04/18 17:34 01/04/18 17:34 01/04/18 17:34 - General physical appearance Present: no distress - Additional Exam urine transparent pink on slow drip. - Labs 01/13/18 00:30 01/13/18 03:16 Diabetes panel 01/13/18 Range/Units 03:16 Sodium 130 L (136-145) mEq/L Potassium 3.3 L (3.5-5.1) mEq/L Chloride 96 L (98-107) mEq/L Carbon Dioxide 26 (23-29) mEq/L BUN 29 H (8-23) mg/dL Creatinine 0.78 (0.60-1.20) mg/dL Glucose 139 H (70-105) mg/dL Calcium 7.4 L (8.6-10.3) mg/dL Thyroid panel 01/12/18 Range/Units 12:19 TSH 1.193 (0.340-5.600) mcIU/mL Calcium panel 01/13/18 Range/Units 03:16 Calcium 7.4 L (8.6-10.3) mg/dL Pituitary panel 01/12/18 01/13/18 Range/Units 12:19 03:16 Sodium 130 L (136-145) mEq/L Potassium 3.3 L (3.5-5.1) mEq/L Chloride 96 L (98-107) mEq/L Carbon Dioxide 26 (23-29) mEq/L BUN 29 H (8-23) mg/dL Creatinine 0.78 (0.60-1.20) mg/dL Glucose 139 H (70-105) mg/dL Calcium 7.4 L (8.6-10.3) mg/dL TSH 1.193 (0.340-5.600) mcIU/mL Adrenal panel 01/13/18 Range/Units 03:16 Sodium 130 L (136-145) mEq/L Potassium 3.3 L (3.5-5.1) mEq/L Chloride 96 L (98-107) mEq/L Carbon Dioxide 26 (23-29) mEq/L BUN 29 H (8-23) mg/dL Creatinine 0.78 (0.60-1.20) mg/dL Glucose 139 H (70-105) mg/dL Calcium 7.4 L (8.6-10.3) mg/dL Consult Discharge Plan - Plan Referrals: Micheal Dickerson DO [Primary Care Provider] - 01/28/18 4:30 pm
--- NOTE | 2018-01-13 07:36 | Palliative Progress Note ---
Date of Encounter: 01/13/18 Time of Encounter: 07:15 - Assessment and plan (1) Small cell lung cancer Current Visit: Yes Status: Acute Assessment and plan: Patient has been treated for this and will continue to get outpatient treatment after discharge. The patient wishes to continue full aggressive care for his long as she can. (2) Anemia Current Visit: Yes Status: Acute Assessment and plan: Being rechecked at this time. Urology note indicates that the blood in the urine is clearing. Qualifiers: Other causes of anemia: antineoplastic chemotherapy Qualified Code(s): D64.81 - Anemia due to antineoplastic chemotherapy; T45.1X5A - Adverse effect of antineoplastic and immunosuppressive drugs, initial encounter (3) Goals of care, counseling/discussion Current Visit: Yes Status: Acute Assessment and plan: Per discussion yesterday patient wishes to remain a full code at this time. He understands were hospice fits into the big picture, she also understands she can change CODE STATUS without affecting her ability to get chemotherapy for her cancer. We will await the results of the PEEP hemoglobin and probably follow at an extreme distance at this point was going to sign off completely but continue to monitor until after the anemia has been worked out. (4) Gross hematuria Current Visit: Yes Status: Acute Assessment and plan: Being managed by urology, per urology note blood is clearing. - Time Spent With Patient Total time spent is greater than 50% in coordination of care (as documented) at patient's floor/unit and/or counseling patient: - Subjective Interval history: She has no complaints of this morning does not feel set all. I did explain to her that her blood out appears to be lower in that were rechecking it. So explain that this may hold up her discharge. She has no questions at this time. He also has no complaints and states her bowels are moving well. - Constitutional Vitals: Abnormal lab results RBC 2.03 M/mcL (3.82-4.97) L 01/13/18 00:30 Hgb 6.2 g/dL (11.5-15.4) L D 01/13/18 00:30 Hct 17.7 % (35.3-44.9) L 01/13/18 00:30 RDW 15.4 % (11.5-14.5) H 01/13/18 00:30 Plt Count 84 K/mcL (140-400) L 01/13/18 00:30 Lymphocytes # 0.3 K/mcL (0.6-4.6) L 01/06/18 04:58 APTT 22.4 Seconds (26.0-36.0) L 01/04/18 18:28 Sodium 130 mEq/L (136-145) L 01/13/18 03:16 Potassium 3.3 mEq/L (3.5-5.1) L 01/13/18 03:16 Chloride 96 mEq/L (98-107) L 01/13/18 03:16 BUN 29 mg/dL (8-23) H 01/13/18 03:16 BUN/Creatinine Ratio 37 (6-26) H 01/13/18 03:16 Glucose 139 mg/dL (70-105) H 01/13/18 03:16 POC Glucose 239 mg/dL (70-99) H 01/12/18 21:21 Hemoglobin A1c 10.0 % (-5.6) H 01/06/18 04:58 Calculated Osmolality 278 (280-300) L 01/13/18 03:16 Calcium 7.4 mg/dL (8.6-10.3) L 01/13/18 03:16 Phosphorus 2.2 mg/dL (2.7-4.5) L 01/06/18 04:58 Direct Bilirubin 0.3 mg/dL (0.0-0.2) H 01/04/18 18:28 ALT 64 Units/L (7-52) H 01/04/18 18:28 Alkaline Phosphatase 230 Units/L (34-104) H 01/04/18 18:28 Lactate Dehydrogenase 528 Units/L (140-271) H 01/09/18 02:15 Serum Total Protein 5.2 g/dL (6.4-8.9) L 01/04/18 18:28 Albumin 3.1 g/dL (3.5-5.7) L 01/04/18 18:28 Globulin 2.1 g/dL (2.4-3.5) L 01/04/18 18:28 Beta-Hydroxybutyric Acd > 2.00 mmol/L (0.02-0.27) H 01/04/18 18:20 Urine Clarity Cloudy (Clear) A 01/10/18 15:00 Urine Protein 100 mg/dL (Neg-Trace) H 01/10/18 15:00 Urine Blood Large (Negative) H 01/10/18 15:00 Ur Leukocyte Esterase Moderate (Negative) H 01/10/18 15:00 Urine Microscopic RBC TNTC per hpf (0-3) H 01/10/18 15:00 Urine Microscopic WBC TNTC per hpf (0-3) H 01/10/18 15:00 Ur Squamous Epith Cells Moderate per lpf (None-Few) H 01/10/18 15:00 Urine Bacteria Many per hpf (None-Few) H 01/10/18 15:00 Ur Culture Indicated? YES (NO) A 01/10/18 15:00 Vancomycin Trough 17 mcg/mL (5-10) H 01/12/18 13:39 General appearance: Present: no acute distress - Respiratory Respiratory exam: Present: rhonchi (Occasional with an occasional wheeze) - Cardiovascular Cardiovascular exam: Present: RRR - GI/Abdominal GI/Abdominal exam: Present: normal bowel sounds, soft. Absent: tenderness - Extremities Exam Extremities exam: Present: pedal edema - Neurological Exam Neurological exam: Present: alert, oriented X3 - Psychiatric Psychiatric exam: Present: normal affect, normal mood. Absent: agitated, anxious - Skin Skin exam: Present: dry, warm Palliative Quality Palliative Quality: Screen for Code Status: Yes, Screen for Goals of Care: Yes, Screen for Pain: Yes, If Pain Regimen Started, Initiate Bowel Regimen: NA, Screen for Nausea/Vomitting: Yes - Labs CBC & Chem 7: 01/13/18 00:30 01/13/18 03:16 Labs: Laboratory Results - last 24 hr 01/12/18 01/12/18 01/12/18 07:51 11:06 12:19 WBC RBC Hgb Hct MCV MCH MCHC RDW Plt Count MPV Immature Plt Fraction Sodium Potassium Chloride Carbon Dioxide BUN Creatinine Est GFR ( Amer) Est GFR (Non-Af Amer) BUN/Creatinine Ratio Glucose POC Glucose 210 H 206 H Calculated Osmolality Calcium Magnesium Troponin I 0.05 H* TSH 1.193 Vancomycin Trough Specimen Rejected Blood Type Antibody Screen 01/12/18 01/12/18 01/12/18 12:19 13:39 16:32 WBC RBC Hgb Hct MCV MCH MCHC RDW Plt Count MPV Immature Plt Fraction Sodium Potassium Chloride Carbon Dioxide BUN Creatinine Est GFR ( Amer) Est GFR (Non-Af Amer) BUN/Creatinine Ratio Glucose POC Glucose 183 H Calculated Osmolality Calcium Magnesium 1.7 Troponin I TSH Vancomycin Trough 17 H Specimen Rejected Blood Type Antibody Screen 01/12/18 01/12/18 01/12/18 17:48 21:21 23:48 WBC RBC Hgb Hct MCV MCH MCHC RDW Plt Count MPV Immature Plt Fraction Sodium Potassium Chloride Carbon Dioxide BUN Creatinine Est GFR ( Amer) Est GFR (Non-Af Amer) BUN/Creatinine Ratio Glucose POC Glucose 239 H Calculated Osmolality Calcium Magnesium Troponin I 0.04 H* 0.03 TSH Vancomycin Trough Specimen Rejected Blood Type Antibody Screen 01/13/18 01/13/18 01/13/18 00:30 00:30 01:44 WBC 6.7 RBC 2.03 L Hgb 6.2 L D Hct 17.7 L MCV 87.2 MCH 30.5 MCHC 35.0 RDW 15.4 H Plt Count 84 L MPV 10.7 Immature Plt Fraction 4.0 Sodium Potassium Chloride Carbon Dioxide BUN Creatinine Est GFR ( Amer) Est GFR (Non-Af Amer) BUN/Creatinine Ratio Glucose POC Glucose Calculated Osmolality Calcium Magnesium Troponin I TSH Vancomycin Trough Specimen Rejected Miscellaneous Miscellaneous Blood Type Antibody Screen 01/13/18 01/13/18 03:16 03:16 WBC RBC Hgb Hct MCV MCH MCHC RDW Plt Count MPV Immature Plt Fraction Sodium 130 L Potassium 3.3 L Chloride 96 L Carbon Dioxide 26 BUN 29 H Creatinine 0.78 Est GFR ( Amer) > 60 Est GFR (Non-Af Amer) > 60 BUN/Creatinine Ratio 37 H Glucose 139 H POC Glucose Calculated Osmolality 278 L Calcium 7.4 L Magnesium Troponin I TSH Vancomycin Trough Specimen Rejected Blood Type B POSITIVE Antibody Screen NEGATIVE - Impressions Impressions Abdomen/Pelvis CT 01/12/18 12:38 IMPRESSION: Multiple metastatic lesions scattered throughout the liver similar to the prior exam. Bilateral adrenal masses unchanged from prior exam. Anasarca and a small amount of ascites seen along both left and right paracolic gutter regions. The bladder is filled with contrast. There are several small pockets of air within the bladder which may be secondary to prior catheterization. There is no bladder wall thickening. Both the left and right kidneys and ureters appear normal. D/ / 01/12/2018 15:45:37 Polo Saunders MD / [email or web address] Interpreting Provider: Polo Saunders MD - ABG Interpretation ABG results: PT/INR, D-dimer PT 11.2 Seconds (9.4-12.1) 01/04/18 18:28 Consult Discharge Plan - Plan Referrals: Micheal Dickerson DO [Primary Care Provider] - 01/28/18 4:30 pm
[2018-01-13 07:39] LABS: Red Blood Count 2.45 M/mcL (3.82-4.97); Red Cell Distribution Width 15.4 % (11.5-14.5)
[2018-01-13 07:41] LABS: Hematocrit 21.1 % (35.3-44.9); Hemoglobin 7.4 g/dL (11.5-15.4); Immature Platelets 5.2 % (1.1-6.1); Mean Corpuscular HGB Conc 35.1 g/dL (31.6-35.5); Mean Corpuscular Hemoglobin 30.2 pg (28.0-33.3); Mean Corpuscular Volume 86.1 fL (83.0-100.0); Mean Platelet Volume 10.9 fL (9.4-12.4)
[2018-01-13] MEDS: Insulin LISPRO 300 UNITS/3 ML VIAL SQ SCH ×4 (07:53→21:55)
[2018-01-13] MEDS ORDERED: Aminoglycoside Consult 1 EACH MC ONE (07:59)
[2018-01-13] MEDS: Potassium Chloride Elixir 20 MEQ/15 ML UDC PO SCH ×2 (08:28→17:19)
[2018-01-13] MEDS: Aspirin 81 MG TAB.CHEW PO SCH (08:30)
[2018-01-13] MEDS: Valsartan 160 MG TABLET PO SCH (08:30)
--- NOTE | 2018-01-13 12:10 | Internal Med Progress Note ---
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 ABD/pelvis CT showed innumerable hepatic hypodensities and bilateral adrenal masses consistent with metastatic disease. MRI of lumbar region suspicious for mets to the spine. 01/06/18 Liver biopsy pathology consist with small cell; official report pending. Oncology following and chemo initiated 01/07/18. Monitor daily CBC and CMP. Chemo precautions. Anti-emetics PRN (2) Pneumonia Current Visit: Yes Status: Acute Assessment and plan: chest CTA concerning for bilateral pneumonia. Symptomatic with cough, rhonchi, tachycardia and low-grade fever. High risk for complications with new malignancy and initiation of chemotherapy. Started vanco and zosyn. Will taper antibiotics to po levaquin Qualifiers: Pneumonia type: due to unspecified organism Laterality: bilateral Lung location: lower lobe of lung Qualified Code(s): J18.1 - Lobar pneumonia, unspecified organism (3) Anemia Current Visit: Yes Status: Acute Assessment and plan: likely secondary to hematuira. Hgb 7.4 on 01/13 from baseline of 9-10. Will transfuse 1 unit PRBC. Monitor H&H Qualifiers: Other causes of anemia: chronic disease, other Qualified Code(s): D63.8 - Anemia in other chronic diseases classified elsewhere (4) Gross hematuria Current Visit: Yes Status: Acute Assessment and plan: Urology following. will d/c heparin. Hematuria catheter placed with continuous bladder irrigation. Will transfuse 1 unit PRBC (5) CVA (cerebral vascular accident) Current Visit: Yes Status: Acute Assessment and plan: presented with acute confusion. Head CT unremarkable. Brain MRI showed multiple tiny infarcts to left occipital lobe. TTE with EF 65%, no evidence of PFO or cardiac source of emboli. Carotid artery duplex showed bilateral 60-79% bilateral ICA stnosis; evaluated by Neurology who suspected likely incidental finding and not related to her current ischemic infarct therefore would not recommend further investigation at this time but will need annual monitoring in the form of carotid artery duplex. Cont ASA Qualifiers: CVA mechanism: unspecified Qualified Code(s): I63.9 - Cerebral infarction, unspecified (6) Acute metabolic encephalopathy Current Visit: Yes Status: Acute Assessment and plan: suspect acute metabolic encephalopathy multifactorial with new acute CVA, elevated ammonia level and underling malignancy. Continue treating underlying causes. Mentation significantly improved as of 01/08 (7) Transaminitis Current Visit: Yes Status: Acute Assessment and plan: Mild transaminitis. Likely secondary to liver metastasis. Intermittently monitor. (8) Hyperammonemia Current Visit: Yes Status: Acute Assessment and plan: Likely 2/2 to liver mets. Ammonia level 56; see one-time dose lactulose. Repeat ammonia normal. (9) DVT prophylaxis Current Visit: Yes Status: Acute Assessment and plan: Heparin (10) Diabetes type 2, uncontrolled Current Visit: Yes Status: Chronic Assessment and plan: per hx. Hgb A1c 10%. Holding home oral hypoglycemics. Start long acting daily at bedtime. SSI. Monitor blood sugars and titrate PRN. Qualifiers: Diabetes mellitus half-way insulin use: with half-way use Diabetes mellitus complication status: with circulatory complication Diabetes mellitus complication detail: with other circulatory complications Qualified Code(s): E11.59 - Type 2 diabetes mellitus with other circulatory complications; E11.65 - Type 2 diabetes mellitus with hyperglycemia; Z79.4 - MCFP (current) use of insulin (11) Wounds, multiple open, lower extremity Current Visit: Yes Status: Acute Assessment and plan: present on admission. Cont local wound care Qualifiers: Encounter type: initial encounter Laterality: left Qualified Code(s): S81.802A - Unspecified open wound, left lower leg, initial encounter (12) Hypokalemia Current Visit: Yes Status: Acute Assessment and plan: Likely secondary to chemotherapy. Monitor daily and replace PRN. Mg pending (13) Hypocalcemia Current Visit: Yes Status: Acute Assessment and plan: Likely secondary to chemotherapy. Monitor CMP daily and replace PRN (14) UTI (urinary tract infection) Current Visit: Yes Status: Acute Assessment and plan: UA indicative of UTI. Cont IV zosyn. Follow urine cx. Switch abx to po levaquin Qualifiers: Urinary tract infection type: acute cystitis Hematuria presence: without hematuria Qualified Code(s): N30.00 - Acute cystitis without hematuria (15) Hyponatremia Current Visit: Yes Status: Acute Assessment and plan: Will give IV fluids with normal saline - Time Spent With Patient Total time spent is greater than 50% in coordination of care (as documented) at patient's floor/unit and/or counseling patient: - Subjective Interval history: Had episode of hematuria overnight - Constitutional Vitals: Temp Pulse Resp BP Pulse Ox 97.5 F L 90 18 117/73 94 01/13/18 11:36 01/13/18 11:36 01/13/18 11:36 01/13/18 11:36 01/13/18 11:36 General appearance: Present: A&O X 3, morbidly obese, no acute distress - Head Head exam: Present: atraumatic, normocephalic - Eye Eye exam: Present: PERRL, conjuntiva pink, sclera anicteric Pupils: Present: PERRL - Neck Neck exam general surgery: Present: supple, trachea midline. Absent: lymphadenopathy - Respiratory Respiratory exam: Present: CTAB. Absent: accessory muscle use, rales, rhonchi, wheezes - Cardiovascular Cardiovascular exam: Present: RRR, +S1, +S2. Absent: diastolic murmur, gallop, rubs, systolic murmur - GI/Abdominal GI/Abdominal exam: Present: normal bowel sounds, soft, no peritoneal signs. Absent: distended, tenderness - Extremities Exam Extremities exam: Present: warm, radial pulses palpable and symmetrical. Absent : calf tenderness, cyanotic, pedal edema - Neurological Exam Neurological exam: Present: CN II-XII intact, oriented X3, no focal deficits. Absent: pronater drift, facial droop, speech deficit - Skin Skin exam: Present: dry, intact Internal Medicine: Result - Labs CBC & Chem 7: 01/13/18 07:16 01/13/18 03:16 Labs: Short CBC 01/13/18 01/13/18 Range/Units 00:30 07:16 WBC 6.7 6.6 (4.3-11.1) K/mcL Hgb 6.2 L D 7.4 L (11.5-15.4) g/dL Hct 17.7 L 21.1 L (35.3-44.9) % Plt Count 84 L 91 L (140-400) K/mcL BMP 01/13/18 03:16 Sodium 130 L Potassium 3.3 L Chloride 96 L Carbon Dioxide 26 BUN 29 H Creatinine 0.78 Glucose 139 H Calcium 7.4 L Cardiac Enzymes 01/12/18 01/12/18 01/12/18 Range/Units 12:19 17:48 23:48 Troponin I 0.05 H* 0.04 H* 0.03 (< 0.04) ng/mL - ABG Interpretation ABG results: PT/INR, D-dimer PT 11.2 Seconds (9.4-12.1) 01/04/18 18:28 - Impressions Impressions Abdomen/Pelvis CT 01/12/18 12:38 IMPRESSION: Multiple metastatic lesions scattered throughout the liver similar to the prior exam. Bilateral adrenal masses unchanged from prior exam. Anasarca and a small amount of ascites seen along both left and right paracolic gutter regions. The bladder is filled with contrast. There are several small pockets of air within the bladder which may be secondary to prior catheterization. There is no bladder wall thickening. Both the left and right kidneys and ureters appear normal. D/ / 01/12/2018 15:45:37 Polo Saunders MD / serg Interpreting Provider: Polo Saunders MD Consult Discharge Plan - Plan Referrals: Micheal Dickerson DO [Primary Care Provider] - 01/28/18 4:30 pm
[2018-01-13] MEDS: levoFLOXacin 750 MG TABLET PO SCH (12:39)
[2018-01-13] MEDS ORDERED: 0.9 % Sodium Chloride 250 ML ONE (15:24)
--- NOTE | 2018-01-13 18:05 | Urology Progress Note ---
Date of Encounter: 01/13/18 Time of Encounter: 18:05 - Assessment and Plan (1) Gross hematuria Current Visit: Yes Status: Resolved Assessment and plan: Stop CBI and follow urine Progress Note Narrative: Hematuria resolving Objective Initial Vital Signs Temp Pulse Resp BP Pulse Ox 97.4 F L 95 18 163/77 92 01/04/18 17:34 01/04/18 17:34 01/04/18 17:34 01/04/18 17:34 01/04/18 17:34 - Additional Exam Light CBI. Urine dusky but clear - Labs 01/13/18 07:16 01/13/18 03:16 Diabetes panel 01/13/18 Range/Units 03:16 Sodium 130 L (136-145) mEq/L Potassium 3.3 L (3.5-5.1) mEq/L Chloride 96 L (98-107) mEq/L Carbon Dioxide 26 (23-29) mEq/L BUN 29 H (8-23) mg/dL Creatinine 0.78 (0.60-1.20) mg/dL Glucose 139 H (70-105) mg/dL Calcium 7.4 L (8.6-10.3) mg/dL Calcium panel 01/13/18 Range/Units 03:16 Calcium 7.4 L (8.6-10.3) mg/dL Pituitary panel 01/13/18 Range/Units 03:16 Sodium 130 L (136-145) mEq/L Potassium 3.3 L (3.5-5.1) mEq/L Chloride 96 L (98-107) mEq/L Carbon Dioxide 26 (23-29) mEq/L BUN 29 H (8-23) mg/dL Creatinine 0.78 (0.60-1.20) mg/dL Glucose 139 H (70-105) mg/dL Calcium 7.4 L (8.6-10.3) mg/dL Adrenal panel 01/13/18 Range/Units 03:16 Sodium 130 L (136-145) mEq/L Potassium 3.3 L (3.5-5.1) mEq/L Chloride 96 L (98-107) mEq/L Carbon Dioxide 26 (23-29) mEq/L BUN 29 H (8-23) mg/dL Creatinine 0.78 (0.60-1.20) mg/dL Glucose 139 H (70-105) mg/dL Calcium 7.4 L (8.6-10.3) mg/dL Consult Discharge Plan - Plan Referrals: Micheal Dickerson DO [Primary Care Provider] - 01/28/18 4:30 pm
--- NOTE | 2018-01-13 19:06 | Oncology Inp Progress Note ---
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 S/P cycle #1 Etoposide/ Cisplatin started on 01/07/18. Consider transition to Etoposide/Carboplatin starting with cycle #2 secondary to presence of peripheral neuropathy, poorly controlled diabetes She tolerated chemotherapy exceptionally well so far with no reported side effects today. Her mental status has dramatically improved since the initiation of chemotherapy. 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 Continue to work with PT/OT. She is planned for discharge to nursing facility for short term rehab. Hospital course complicated by pneumonia/UTI S/P Neulasta 02/10 Electrolyte abnormalities likely secondary to cisplatin. Her LDH has improved from last week (2) Gross hematuria Current Visit: Yes Status: Resolved Assessment and plan: Acute, etiology unclear, not likely related to chemotherapy Review urology's note, she does have significant bladder distention No mass per abdominal CT without/with contrast, left and right kidneys and ureters appear normal. Urology managing with CBI Heparin stopped. Hgb dropped to 7.4 today, she is receiving 1 unit PRBC currently Please refer to Dr. Ye's attestation below for additional details Oncology: Subj Interval history: Ms. Gracia is resting in bed, eating her dinner. She denies pain but does report some pelvic pressure. Denies nausea, vomiting or diarrhea. - Constitutional Vitals: Vital Signs Temp Pulse Resp BP Pulse Ox 01/13/18 18:53 97.4 F L 94 16 144/81 94 01/13/18 18:22 98.3 F 97 16 158/83 96 01/13/18 15:57 98.4 F 97 16 122/75 01/13/18 15:42 98.2 F 97 16 133/74 93 01/13/18 11:36 97.5 F L 90 18 117/73 94 01/13/18 07:41 97.8 F 91 16 147/85 91 01/13/18 04:06 97.4 F L 89 16 133/80 95 01/13/18 00:19 97.9 F 94 16 104/68 95 01/12/18 19:23 98.1 F 99 18 157/89 93 Intake and Output 01/13/18 01/13/18 01/13/18 07:59 15:59 23:59 Intake Total 1100 / 1100 880 / 880 343 / 343 Output Total 1999 1400 / 1400 0 / 0 Balance -900 / -900 -520 / -520 343 / 343 Intake: IV Fluids 1100 / 1100 KCl 20 mEq in 0.9% Sodium 1000 / 1000 Chloride 20 meq In 1,000 ml @ 75 mls/hr IVC .[id number] NAE Rx#: [id number] Zosyn 3.375 GM In 0.9 % Sodium 100 / 100 Chloride (Mini-Bag +) 100 ML @ 25 mls/hr IVPB Q8H [facility] Rx#: [id number] Oral 0 / 0 880 / 880 60 / 60 Blood Product 0 / 0 283 / 283 Rbcs Leuko Poor As-1 Unit 0 / 0 283 / 283 [id number] Output: Urine 1999 1400 / 1400 0 / 0 Other: Intake, CBI Fluid 2,000 2,000 1,800 Meal Lunch Dinner Percent of Meal Consumed 20% 50% Output, CBI Fluid 2,000 3,400 650 Stool Size Small Smear Smear Stool Consistency loose loose loose Stool Characteristics Normal for Patient Normal for Patient Stool Color Brown Brown Brown # Bowel Movements 1 1 # Bowel Movement Diapers 1 Weight 115.7 kg Blood Glucose* 134 164 315 Patient Weight 01/13/18 23:59 Weight 115.7 kg General appearance: cooperative, morbidly obese, no acute distress, no febrile - Head Head exam: Present: atraumatic - ENT ENT exam: Present: mucous membranes moist - Respiratory Respiratory exam: Present: decreased breath sounds, rhonchi. Absent: respiratory distress - Cardiovascular Cardiovascular exam: Present: RRR, +S1, +S2 - GI/Abdominal GI/Abdominal exam: Present: normal bowel sounds, soft. Absent: guarding, rebound, tenderness - Additional comments: garcia cath, urine dark with some hematuria - Extremities Exam Extremities exam: Absent: calf tenderness Additional comments: 2+ pitting edema, gauze wraps bilaterally - Neurological Exam Neurological exam: Present: alert, oriented X3, no focal deficits, strengths equal and symetr throughout - Psychiatric Psychiatric exam: Present: normal affect, normal mood - Skin Skin exam: Present: dry, normal color, warm Oncology: Obj Data - Labs CBC & Chem 7: 01/14/18 06:03 01/14/18 06:03 Labs: Laboratory Results - last 24 hr - Impressions Impressions Abdomen/Pelvis CT 01/12/18 12:38 IMPRESSION: Multiple metastatic lesions scattered throughout the liver similar to the prior exam. Bilateral adrenal masses unchanged from prior exam. Anasarca and a small amount of ascites seen along both left and right paracolic gutter regions. The bladder is filled with contrast. There are several small pockets of air within the bladder which may be secondary to prior catheterization. There is no bladder wall thickening. Both the left and right kidneys and ureters appear normal. D/ / 01/12/2018 15:45:37 Polo Saunders MD / serg Interpreting Provider: Polo Saunders MD - ABG Interpretation ABG results: PT/INR, D-dimer PT 11.2 Seconds (9.4-12.1) 01/04/18 18:28 Consult Discharge Plan - Plan Referrals: Micheal Dickerson DO [Primary Care Provider] - Prescriptions: Acetaminophen [Tylenol] 650 mg PO Q6HR PRN #30 tablet PRN Reason: Mild Pain/Fever levoFLOXacin [Levaquin] 750 mg PO DAILY #3 tablet <Abbey Ye S - Last Filed: 01/14/18 17:45> Date of Encounter: 01/14/18 - Constitutional Vitals: Vital Signs Temp Pulse Resp BP Pulse Ox 01/14/18 11:51 97.4 F L 86 16 167/91 94 01/14/18 06:44 97.4 F L 85 16 156/86 95 01/14/18 03:58 97.5 F L 87 17 139/81 96 01/13/18 23:24 97.6 F 89 16 144/82 99 01/13/18 18:53 97.4 F L 94 16 144/81 94 01/13/18 18:22 98.3 F 97 16 158/83 96 Intake and Output 01/14/18 01/14/18 01/14/18 07:59 15:59 23:59 Intake Total 200 / 200 1000 / 1000 Output Total 1600 / 1600 Balance -1400 / -1400 1000 / 1000 Intake: IV Fluids 1000 / 1000 KCl 20 mEq in 0.9% Sodium 1000 / 1000 Chloride 20 meq In 1,000 ml @ 75 mls/hr IVC .[id number] [facility] Rx#: [id number] Oral 200 / 200 0 / 0 Output: Urine 800 / 800 Catheter 800 / 800 Other: Stool Size Moderate Stool Consistency loose Stool Color Brown Weight 116.7 kg Blood Glucose* 81 109 146 Patient Weight 01/14/18 23:59 Weight 116.7 kg Oncology: Obj Data - Labs CBC & Chem 7: 01/14/18 06:03 01/14/18 06:03 Labs: Laboratory Results - last 24 hr 01/13/18 01/13/18 01/13/18 03:16 16:23 20:13 WBC RBC Hgb Hct MCV MCH MCHC RDW Plt Count MPV Immature Plt Fraction PT 11.3 INR 1.1 APTT 23.4 L Sodium Potassium Chloride Carbon Dioxide BUN Creatinine Est GFR ( Amer) Est GFR (Non-Af Amer) BUN/Creatinine Ratio Glucose POC Glucose 315 H Calculated Osmolality Calcium Lactate Dehydrogenase Crossmatch See Detail 01/13/18 01/14/18 01/14/18 20:18 06:03 06:03 WBC 3.6 L RBC 2.74 L Hgb 8.4 L Hct 24.1 L MCV 88.0 MCH 30.7 MCHC 34.9 RDW 15.1 H Plt Count 80 L MPV 10.8 Immature Plt Fraction 5.0 PT INR APTT Sodium 137 Potassium 3.8 Chloride 105 Carbon Dioxide 29 BUN 20 Creatinine 0.53 L Est GFR ( Amer) > 60 Est GFR (Non-Af Amer) > 60 BUN/Creatinine Ratio 38 H Glucose 74 POC Glucose 283 H Calculated Osmolality 285 Calcium 7.4 L Lactate Dehydrogenase Crossmatch 01/14/18 01/14/18 01/14/18 06:03 06:48 11:50 WBC RBC Hgb Hct MCV MCH MCHC RDW Plt Count MPV Immature Plt Fraction PT INR APTT Sodium Potassium Chloride Carbon Dioxide BUN Creatinine Est GFR ( Amer) Est GFR (Non-Af Amer) BUN/Creatinine Ratio Glucose POC Glucose 81 109 H Calculated Osmolality Calcium Lactate Dehydrogenase 394 H Crossmatch 01/14/18 17:00 WBC RBC Hgb Hct MCV MCH MCHC RDW Plt Count MPV Immature Plt Fraction PT INR APTT Sodium Potassium Chloride Carbon Dioxide BUN Creatinine Est GFR ( Amer) Est GFR (Non-Af Amer) BUN/Creatinine Ratio Glucose POC Glucose 146 H Calculated Osmolality Calcium Lactate Dehydrogenase Crossmatch - ABG Interpretation ABG results: PT/INR, D-dimer PT 11.3 Seconds (9.4-12.1) 01/13/18 20:13 - Attending Attestation I examined this patient and my medical decision-making was reviewed with the Advanced Practice Nurse. I agree with the documented findings, disposition and treatment plan as described except to the extent set forth below. Small cell lung cancer stage IV with multiple hepatic metastasis cycle #1 Etoposide/Cisplatin started on 01/07/18. She has grade 1 anemia and 8.4 grade 1 thrombus cytopenia platelet count 80 normal neutrophils 2. Gross hematuria. Etiology not clear. Urology involved. Her urine cleared with continuous bladder irrigation. CT abdomen and pelvis did not show any renal mass or renal stones. If, hematuria recurs she may need cystoscopy
[2018-01-13 20:38] LABS: INR 1.1; Prothrombin Time 11.3 Seconds (9.4-12.1)
[2018-01-13 20:40] LABS: Activated Partial Thrombo Time 23.4 Seconds (26.0-36.0)
[2018-01-13] MEDS: Insulin DETEMIR 100 UNIT/ML X5UNITS SQ SCH (21:56)
[2018-01-14 06:28] LABS: Red Cell Distribution Width 15.1 % (11.5-14.5)
[2018-01-14 06:30] LABS: Hematocrit 24.1 % (35.3-44.9); Hemoglobin 8.4 g/dL (11.5-15.4); Mean Corpuscular HGB Conc 34.9 g/dL (31.6-35.5); Mean Corpuscular Hemoglobin 30.7 pg (28.0-33.3); Mean Platelet Volume 10.8 fL (9.4-12.4); Red Blood Count 2.74 M/mcL (3.82-4.97)
[2018-01-14 06:50] LABS: BUN/Creatinine Ratio 38 (6-26); Blood Urea Nitrogen 20 mg/dL (8-23); Calcium 7.4 mg/dL (8.6-10.3); Carbon Dioxide 29 mEq/L (23-29); Chloride 105 mEq/L (98-107); Glucose 74 mg/dL (70-105); Osmolality,Calculated 285 (280-300); Potassium 3.8 mEq/L (3.5-5.1); Sodium 137 mEq/L (136-145); eGFR For African Americans > 60 (> 60); eGFR For Non-African Americans > 60 (> 60)
[2018-01-14] MEDS: Insulin LISPRO 300 UNITS/3 ML VIAL SQ SCH ×3 (08:16→17:32)
[2018-01-14] MEDS: levoFLOXacin 750 MG TABLET PO SCH (08:55)
[2018-01-14] MEDS: Valsartan 160 MG TABLET PO SCH (08:55)
[2018-01-14] MEDS: Potassium Chloride Elixir 20 MEQ/15 ML UDC PO SCH ×2 (08:56→17:32)
[2018-01-14] MEDS: Aspirin 81 MG TAB.CHEW PO SCH (08:59)
[2018-01-14] MEDS: 0.9 % Sodium Chloride w KCl 20 MEQ/1,000 ML MLS IVC SCH (09:05)
--- NOTE | 2018-01-14 11:45 | Discharge Summary ---
Orders not resulted at time of discharge: Pending orders 01/15/18 04:00 BMP [Basic Metabolic Panel] AM 0400 Complete Blood Count w/o Diff [HEME] AM 0400 01/16/18 04:00 BMP [Basic Metabolic Panel] AM 0400 Complete Blood Count w/o Diff [HEME] AM 0400 Date of Encounter: 01/14/18 Time of Encounter: 11:45 - Discharge Diagnosis (1) Small cell lung cancer Priority: Primary Status: Acute Assessment and Plan: 62 year old female with a past medical history of hypertension, diabetes insulin -dependent, COPD non-oxygen dependent, and newly diagnosed at [facility] right lung mass who presented to the ED after patient saw her PCP with AMS and low potassium. Patient's family was with her and states that she was admitted to [facility] last week for hypokalemia and was found to have a CT scan that showed was suspicious for lung mass. Patient was discharged from the hospital and since the day after discharge family states that she has been confused for about the last week with associated nausea and vomiting, loss of bowel and bladder, increase weakness. 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 ABD/pelvis CT showed innumerable hepatic hypodensities and bilateral adrenal masses consistent with metastatic disease. MRI of lumbar region suspicious for mets to the spine She was assessed with right lung mass and acute metabolic encephalopathy. She was started on lactulose as she had elevated ammonia levels and was seen by oncology for her lung mass. IR was consulted for liver biopsy which was performed on 01/06. Results were consistent with Stage 4 small cell carcinoma. She was therefore started on palliative chemotherapy with cisplatin/etoposide for which she completed cycle 1 over 3 days from 01/07-01/10. Her mental status improved with chemotherapy. She was also noted to have a pneumonia and completed a course of antibiotics. She developed gross hematuria and was seen by urology who put her on continuous bladder irrigation. she was transfused one unit of pRBC for anemia secondary to hematuria. By day of discharge her urine had cleared up, mental status had improved and she was discharged to a rehab facility. 35minutes was spent discharging this patient (2) Pneumonia Priority: Secondary Status: Acute Qualifiers: Pneumonia type: due to unspecified organism Laterality: bilateral Lung location: lower lobe of lung Qualified Code(s): J18.1 - Lobar pneumonia, unspecified organism (3) Anemia Priority: Secondary Status: Acute Qualifiers: Other causes of anemia: chronic disease, other Qualified Code(s): D63.8 - Anemia in other chronic diseases classified elsewhere (4) Gross hematuria Priority: Secondary Status: Resolved (5) CVA (cerebral vascular accident) Priority: Secondary Status: Acute Qualifiers: CVA mechanism: unspecified Qualified Code(s): I63.9 - Cerebral infarction, unspecified (6) Acute metabolic encephalopathy Priority: Secondary Status: Acute (7) Transaminitis Priority: Secondary Status: Acute (8) Hyperammonemia Priority: Secondary Status: Acute (9) DVT prophylaxis Priority: Secondary Status: Acute (10) Diabetes type 2, uncontrolled Priority: Secondary Status: Chronic Qualifiers: Diabetes mellitus mcfp insulin use: with mcfp use Diabetes mellitus complication status: with circulatory complication Diabetes mellitus complication detail: with other circulatory complications Qualified Code(s): E11.59 - Type 2 diabetes mellitus with other circulatory complications; E11.65 - Type 2 diabetes mellitus with hyperglycemia; Z79.4 - superintendent container terminal (current) use of insulin (11) Wounds, multiple open, lower extremity Priority: Secondary Status: Acute Qualifiers: Encounter type: initial encounter Laterality: left Qualified Code(s): S81.802A - Unspecified open wound, left lower leg, initial encounter (12) Hypokalemia Priority: Secondary Status: Acute (13) Hypocalcemia Priority: Secondary Status: Acute (14) UTI (urinary tract infection) Priority: Secondary Status: Acute Qualifiers: Urinary tract infection type: acute cystitis Hematuria presence: without hematuria Qualified Code(s): N30.00 - Acute cystitis without hematuria (15) Hyponatremia Priority: Secondary Status: Acute Hospital course: Ms. Gracia is a 62 year old female - Time Spent with Patient Total time spent providing and/or coordinating discharge services: - Discharge Medications Prescriptions: Acetaminophen [Tylenol] 650 mg PO Q6HR PRN #30 tablet PRN Reason: Mild Pain/Fever levoFLOXacin [Levaquin] 750 mg PO DAILY #3 tablet Home Medications: Albiglutide [Tanzeum] 15 mg SQ QWEEK 06/24/16 [History] Atorvastatin Calcium [Lipitor] 80 mg PO DAILY 06/24/16 [History] BuPROPion SR (12 HR) [Wellbutrin SR] 200 mg PO BID 06/24/16 [History] Cyclobenzaprine [Flexeril] 10 mg PO HS 06/24/16 [History] Gabapentin [Neurontin] 600 mg PO HS 06/24/16 [History] GlipiZIDE [Glipizide Xl] 5 mg PO BID 06/24/16 [History] Montelukast [Singulair] 10 mg PO DAILY 06/24/16 [History] Sertraline [Zoloft] 100 mg PO DAILY 06/24/16 [History] TraZODone 75 mg PO HS 06/24/16 [History] metFORMIN [Glucophage] 1,000 mg PO BID 06/24/16 [History] Valsartan 160 mg PO DAILY 01/05/18 [History] Acetaminophen [Tylenol] 650 mg PO Q6HR PRN #30 tablet 01/14/18 [Rx] levoFLOXacin [Levaquin] 750 mg PO DAILY #3 tablet 01/14/18 [Rx] Allergies/Adverse Reactions: 3 Allergy/AdvReac Type Severity Reaction Status Date / Time Sulfa (Sulfonamide Allergy Hives Verified 06/24/16 01:33 Antibiotics) Date of admission: 01/05/18 03:43 Primary care physician: Zuly Tavares Consults: 01/05/18 05:05 Consult to Neurology [CONS] Routine Consulting Provider: [facility] Reason for Consult: possible tiny acute infarcts vs. brain mets on MRI Time Notified: 05:07 Call Completed: No Consult to Oncology [CONS] Routine Consulting Provider: Oncology [facility] Reason for Consult: Right middle lobe lung mass with mets to liver and spine Time Notified: 05:08 Call Completed: No Consult to Pulmonology [CONS] Routine Consulting Provider: [facility] Reason for Consult: right middle lobe 2.6cm mass, bronchoscopy with biopsy if possible Time Notified: 05:08 Call Completed: No 01/05/18 16:31 Consult to Wound Care [CONS] Routine Reason for Consult: bilateral lower extremity wounds Call Completed: Yes 01/05/18 17:33 Consult to Interventional Radiology [CONS] Routine Consulting Provider: Radiology Interventional [facility] Reason for Consult: liver lesion biopsy-will need to discuss in AM-imaging from [place]-not in system Call Completed: No 01/08/18 08:42 Consult to Invasive Line Access Team [CONS] Routine Reason for Consult: Picc Line Insertion Line Type: EPIV 01/08/18 09:00 Consult to Physical Therapy [CONS] Routine Comment: Evaluate, develop and implement POC Reason for Consult: Generalized weakness, new dx cancer Does patient have active BEDREST order?: No Is patient medically & hemodynamically stable?: Yes OT [Consult to Occupational Therapy] [CONS] Routine Comment: Evaluate, develop and implement POC Reason for Consult: Generalized weakness, new dx cancer Does patient have active BEDREST order?: No Is patient medically & hemodynamically stable?: Yes 01/12/18 12:02 Consult to Palliative Care [CONS] Routine Comment: Consulting Provider: Palliative Care [facility] Reason for Consult: goals of care Call Completed: Yes 01/12/18 12:35 Consult to Urology [CONS] Routine Consulting Provider: Urology [facility] Reason for Consult: hematuria Call Completed: Yes - Constitutional Vitals: Temp Pulse Resp BP Pulse Ox 97.4 F L 85 16 156/86 95 01/14/18 06:44 01/14/18 06:44 01/14/18 06:44 01/14/18 06:44 01/14/18 06:44 General appearance: Present: A&O X 3, morbidly obese, no acute distress - Patient Status Disposition: Transfer SNF Condition: Good - Discharge Instructions Follow Up With: Micheal Dickerson DO [Primary Care Provider] -
--- NOTE | 2018-01-14 11:47 | Physician Discharge Referral ---
- Diagnosis (1) Small cell lung cancer Priority: Primary Status: Acute (2) Pneumonia Priority: Primary Status: Acute (3) Anemia Status: Acute (4) Gross hematuria Status: Resolved (5) CVA (cerebral vascular accident) Status: Acute (6) Acute metabolic encephalopathy Status: Acute (7) Transaminitis Status: Acute (8) Hyperammonemia Status: Acute (9) DVT prophylaxis Status: Acute (10) Diabetes type 2, uncontrolled Status: Chronic (11) Wounds, multiple open, lower extremity Status: Acute (12) Hypokalemia Status: Acute (13) Hypocalcemia Status: Acute (14) UTI (urinary tract infection) Status: Acute (15) Hyponatremia Status: Acute - Transfer Medications Prescriptions: Acetaminophen [Tylenol] 650 mg PO Q6HR PRN #30 tablet PRN Reason: Mild Pain/Fever levoFLOXacin [Levaquin] 750 mg PO DAILY #3 tablet Home Medications: Albiglutide [Tanzeum] 15 mg SQ QWEEK 06/24/16 [History] Atorvastatin Calcium [Lipitor] 80 mg PO DAILY 06/24/16 [History] BuPROPion SR (12 HR) [Wellbutrin SR] 200 mg PO BID 06/24/16 [History] Cyclobenzaprine [Flexeril] 10 mg PO HS 06/24/16 [History] Gabapentin [Neurontin] 600 mg PO HS 06/24/16 [History] GlipiZIDE [Glipizide Xl] 5 mg PO BID 06/24/16 [History] Montelukast [Singulair] 10 mg PO DAILY 06/24/16 [History] Sertraline [Zoloft] 100 mg PO DAILY 06/24/16 [History] TraZODone 75 mg PO HS 06/24/16 [History] metFORMIN [Glucophage] 1,000 mg PO BID 06/24/16 [History] Valsartan 160 mg PO DAILY 01/05/18 [History] Acetaminophen [Tylenol] 650 mg PO Q6HR PRN #30 tablet 01/14/18 [Rx] levoFLOXacin [Levaquin] 750 mg PO DAILY #3 tablet 01/14/18 [Rx] Allergies/Adverse Reactions: 3 Allergy/AdvReac Type Severity Reaction Status Date / Time Sulfa (Sulfonamide Allergy Hives Verified 06/24/16 01:33 Antibiotics) - Respiratory Orders Smoking Cessation: Smoking cessation has been advised. For more information, call the [place] Tobacco Quit Line at 5-349-NWYB-NOW. - Mobility Orders Ambulate - Rehabiliation Orders Rehab Potential: Good - Diet Orders Cardiac CERTIFICATION: I certify that the transfer of the above named patient to an Extended Care Facility is necessary for the continuing treatment of the diagnosis listed. The above information is true and accurate reflection of patient's current condition. Confidential - Redisclosure prohibited without a patient's written consent.
--- NOTE | 2018-01-14 13:27 | Oncology Inp Progress Note ---
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 S/P cycle #1 Etoposide/ Cisplatin started on 01/07/18. Consider transition to Etoposide/Carboplatin starting with cycle #2 secondary to presence of peripheral neuropathy, poorly controlled diabetes She tolerated chemotherapy exceptionally well so far with no reported side effects today. Her mental status has dramatically improved since the initiation of chemotherapy. 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 Continue to work with PT/OT. She is planned for discharge to nursing facility for short term rehab. Hospital course complicated by pneumonia/UTI S/P Neulasta 02/10 Electrolyte abnormalities likely secondary to cisplatin. Her LDH has improved from last week (2) Gross hematuria Current Visit: Yes Status: Resolved Assessment and plan: Acute, etiology unclear, not likely related to chemotherapy Review urology's note, she does have significant bladder distention No mass per abdominal CT without/with contrast, left and right kidneys and ureters appear normal. Urology managing with CBI Heparin stopped. Hgb dropped to 7.4 today, she is receiving 1 unit PRBC currently Please refer to Dr. Ye's attestation below for additional details - Constitutional Vitals: Vital Signs Temp Pulse Resp BP Pulse Ox 01/14/18 11:51 97.4 F L 86 16 167/91 94 01/14/18 06:44 97.4 F L 85 16 156/86 95 01/14/18 03:58 97.5 F L 87 17 139/81 96 01/13/18 23:24 97.6 F 89 16 144/82 99 01/13/18 18:53 97.4 F L 94 16 144/81 94 01/13/18 18:22 98.3 F 97 16 158/83 96 01/13/18 15:57 98.4 F 97 16 122/75 01/13/18 15:42 98.2 F 97 16 133/74 93 Intake and Output 01/13/18 01/14/18 01/14/18 23:59 07:59 15:59 Intake Total 1343 / 1343 200 / 200 1000 / 1000 Output Total 750 / 750 1600 / 1600 Balance 593 / 593 -1400 / -1400 1000 / 1000 Intake: IV Fluids 1000 / 1000 1000 / 1000 KCl 20 mEq in 0.9% Sodium 1000 / 1000 1000 / 1000 Chloride 20 meq In 1,000 ml @ 75 mls/hr IVC .[id number] [facility] Rx#: [id number] Oral 60 / 60 200 / 200 0 / 0 Blood Product 283 / 283 Rbcs Leuko Poor As-1 Unit 283 / 283 [id number] Output: Urine 750 / 750 800 / 800 Catheter 800 / 800 Other: Intake, CBI Fluid 1,800 Meal Dinner Percent of Meal Consumed 50% Output, CBI Fluid 650 Stool Size Small Moderate Stool Consistency liquid loose Stool Characteristics Normal for Patient Stool Color Brown Brown # Bowel Movements 1 Weight 116.7 kg Blood Glucose* 283 81 109 Patient Weight 01/14/18 23:59 Weight 116.7 kg Oncology: Obj Data - Labs CBC & Chem 7: 01/14/18 06:03 01/14/18 06:03 Labs: Laboratory Results - last 24 hr 01/13/18 01/13/18 01/13/18 03:16 07:36 11:32 WBC RBC Hgb Hct MCV MCH MCHC RDW Plt Count MPV Immature Plt Fraction PT INR APTT Sodium Potassium Chloride Carbon Dioxide BUN Creatinine Est GFR ( Amer) Est GFR (Non-Af Amer) BUN/Creatinine Ratio Glucose POC Glucose 134 H 164 H Calculated Osmolality Calcium Lactate Dehydrogenase Blood Type B POSITIVE Antibody Screen NEGATIVE Crossmatch See Detail 01/13/18 01/13/18 01/13/18 16:23 20:13 20:18 WBC RBC Hgb Hct MCV MCH MCHC RDW Plt Count MPV Immature Plt Fraction PT 11.3 INR 1.1 APTT 23.4 L Sodium Potassium Chloride Carbon Dioxide BUN Creatinine Est GFR ( Amer) Est GFR (Non-Af Amer) BUN/Creatinine Ratio Glucose POC Glucose 315 H 283 H Calculated Osmolality Calcium Lactate Dehydrogenase Blood Type Antibody Screen Crossmatch 01/14/18 01/14/18 01/14/18 06:03 06:03 06:03 WBC 3.6 L RBC 2.74 L Hgb 8.4 L Hct 24.1 L MCV 88.0 MCH 30.7 MCHC 34.9 RDW 15.1 H Plt Count 80 L MPV 10.8 Immature Plt Fraction 5.0 PT INR APTT Sodium 137 Potassium 3.8 Chloride 105 Carbon Dioxide 29 BUN 20 Creatinine 0.53 L Est GFR ( Amer) > 60 Est GFR (Non-Af Amer) > 60 BUN/Creatinine Ratio 38 H Glucose 74 POC Glucose Calculated Osmolality 285 Calcium 7.4 L Lactate Dehydrogenase 394 H Blood Type Antibody Screen Crossmatch 01/14/18 01/14/18 06:48 11:50 WBC RBC Hgb Hct MCV MCH MCHC RDW Plt Count MPV Immature Plt Fraction PT INR APTT Sodium Potassium Chloride Carbon Dioxide BUN Creatinine Est GFR ( Amer) Est GFR (Non-Af Amer) BUN/Creatinine Ratio Glucose POC Glucose 81 109 H Calculated Osmolality Calcium Lactate Dehydrogenase Blood Type Antibody Screen Crossmatch - ABG Interpretation ABG results: PT/INR, D-dimer PT 11.3 Seconds (9.4-12.1) 01/13/18 20:13 Consult Discharge Plan - Plan Referrals: Micheal Dickerson DO [Primary Care Provider] - 01/28/18 4:30 pm Prescriptions: Acetaminophen [Tylenol] 650 mg PO Q6HR PRN #30 tablet PRN Reason: Mild Pain/Fever levoFLOXacin [Levaquin] 750 mg PO DAILY #3 tablet
[2018-01-14 19:42] VITALS: BP 145/79
[2018-01-14] MEDS: OXYCODONE Oral CONC 10 MG/0.5 ML ORAL.SYG SL PRN (20:16)
[2018-01-14] MEDS: Simethicone 80 MG TAB.CHEW PO PRN (20:17)
[2018-01-27] MEDS ORDERED: 0.9 % Sodium Chloride w KCl 20 MEQ/1,000 ML MLS IVC ONE (13:00)
== END 2018-01-14 20:39 | DRG 180 ==
LOC: EMEROO 17:32 → 3BNU 17:32 → 3ANU 01-07 15:28
PROVIDERS: ADMIT Internal Medicine; ATTEND Internal Medicine
PROC: IRLIVER (2018-01-06 14:00)

== ENCOUNTER 2018-04-08 15:32 | Inpatient (IN) ==
--- NOTE | 2018-04-08 16:40 | Emergency Department Note ---
Disposition Clinical Impression: Cellulitis of right foot, Elevated lactic acid level Foot ulcer Qualifiers: Laterality: right Non-pressure ulcer stage: unspecified non-pressure ulcer stage Qualified Code(s): L97.519 - Non-pressure chronic ulcer of other part of right foot with unspecified severity Leukocytosis Qualifiers: Leukocytosis type: unspecified Qualified Code(s): D72.829 - Elevated white blood cell count, unspecified Disposition: Admitted As Inpatient Condition: Fair Referrals: Ivan Reid MD [Primary Care Provider] - Forms: ED Satisfaction Letter Wound/Laceration HPI - General Chief Complaint: ED Wound/Laceration Stated Complaint: Right foot infection Time Seen by Provider: 04/08/18 15:47 Source: family Mode of arrival: wheelchair Limitations: physical limitation Nursing Notes Reviewed: Yes Vital Signs Reviewed: Yes - History of Present Illness HPI Narrative: 62-year-old female history of cancer on chemotherapy with most recent treatment yesterday who presents to the ER from wound care due to a right foot wound. Reports for 5 days she has had swelling and redness to right foot. There is also an area of blackness developing. She saw her surgeon today at the wound clinic who sent her here for IV antibiotics. She reports subjective fevers and chills at home. Reports some nausea without vomiting. She is a diabetic and has poor sensation to her foot. No recent antibiotic use. No other complaints. Onset (ago): day(s) Mechanism: other (Unknown) Associated symptoms: Reports: none - Related Data Home Medications Medication Instructions Recorded Confirmed Atorvastatin Calcium [Lipitor] 80 mg PO DAILY 06/24/16 04/05/18 Cyclobenzaprine [Flexeril] 10 mg PO HS 06/24/16 04/05/18 Gabapentin [Neurontin] 600 mg PO HS 06/24/16 04/05/18 GlipiZIDE [Glipizide Xl] 5 mg PO BID 06/24/16 04/05/18 Montelukast [Singulair] 10 mg PO DAILY 06/24/16 04/05/18 Sertraline [Zoloft] 100 mg PO DAILY 06/24/16 04/05/18 TraZODone 75 mg PO HS 06/24/16 04/05/18 metFORMIN [Glucophage] 1,000 mg PO BID 06/24/16 04/05/18 Losartan Potassium [Cozaar] 100 mg PO DAILY 01/19/18 04/05/18 Meloxicam [Mobic] 15 mg PO DAILY 01/19/18 04/05/18 Oxycodone HCl 5 mg PO Q4H PRN 01/19/18 04/05/18 Potassium Chloride [K-Tab ER] 20 meq PO BID 01/19/18 04/05/18 Previous Rx's Medication Instructions Recorded Acetaminophen [Tylenol] 650 mg PO Q6HR PRN #30 tablet 01/14/18 Loperamide [Imodium] 2 mg PO AD PRN #30 capsule 01/29/18 Magic Mouthwash 5 ml PO Q4H PRN #240 ml 01/29/18 Ondansetron ODT [Zofran ODT] 4 mg SL Q6HR #20 tab.rapdis 01/29/18 Dexamethasone [Decadron] 4 mg PO BID PRN #42 tab 04/05/18 Prochlorperazine Maleate 10 mg PO Q6HR PRN #30 tablet 04/05/18 [Compazine] Allergies Allergy/AdvReac Type Severity Reaction Status Date / Time Sulfa (Sulfonamide Allergy Hives Verified 04/05/18 08:40 Antibiotics) All systems ED: reviewed and negative except as stated. Constitutional: Reports: fever (Subjective). Denies: chills Gastrointestinal: Reports: nausea. Denies: vomiting Integumentary: Reports: lesions, other (Erythema) Past Medical History - Past Medical History Attestation: Yes The following information was validated with the patient. Source: patient Medical history: Reports: arthritis, cancer, COPD, CVA, diabetes, hypertension, other Surgical history: Reports: , cancer surgery, cataract, cholecystectomy , hysterectomy, other Psychiatric history: Reports: anxiety, depression - Social History Smoking Status: Never smoker Smokeless Tobacco Status: No Alcohol use: Reports: none Drug use: Reports: none Physical Exam - General Limitations: no limitations General appearance: alert, in no apparent distress - Head Head exam: atraumatic, normocephalic - Eye Eye exam: Present: normal appearance - ENT ENT exam: normal exam - Neck Neck exam: Present: normal inspection - Chest Chest inspection: Present: normal inspection, symmetric chest wall rise - Respiratory Respiratory exam: Present: normal lung sounds bilaterally - Cardiovascular Cardiovascular exam: Present: regular rate, normal rhythm, normal heart sounds - Abdominal Exam Abdominal exam: Present: soft, Non-Tender. Absent: tenderness, distention, rigidity - Extremities Exam Extremities exam: Present: normal inspection, full ROM - Expanded Upper Extremity Exam Shoulder exam: Present: normal inspection, full ROM Arm exam: Present: normal inspection, full ROM Elbow exam: Present: normal inspection, full ROM Forearm/Wrist exam: Present: normal inspection, full ROM Hand exam: Present: normal inspection, full ROM - Expanded Lower Extremity Exam Hip/Pelvis exam: Present: normal inspection, full ROM Upper leg exam: Present: normal inspection, full ROM Knee exam: Present: normal inspection, full ROM Lower leg exam: Present: normal inspection, full ROM Ankle exam: Present: normal inspection, full ROM Foot/toe exam: Present: full ROM, swelling (Swelling and erythema to the dorsum of the right foot.), other (Amputations from prior diabetic neuropathy) 1 - Ulceration to the lateral sole of the right foot with necrotic changes. Course Course Narrative: Patient seen and examined. Vital signs reviewed. Plan for baseline labs, imaging of the right foot, IV antibiotics and admission. Vital Signs Temperature 97.5 F L 04/08/18 15:39 Pulse Rate 87 04/08/18 15:39 Respiratory Rate 15 04/08/18 15:39 Blood Pressure 153/81 04/08/18 15:39 O2 Sat by Pulse Oximetry 99 04/08/18 15:39 Temperature 97.5 F L 04/08/18 16:28 Pulse Rate 87 04/08/18 16:28 Respiratory Rate 15 04/08/18 16:28 Blood Pressure 153/81 04/08/18 16:28 O2 Sat by Pulse Oximetry 99 04/08/18 16:28 Oxygen Delivery Oxygen Delivery Room Air Wound/Laceration - [facility] Narrative Medical decision making narrative: 62-year-old female presents from wound care for right foot wound. Necrotic area to the lateral portion of the right foot. She is immunocompromised currently on chemotherapy. She is hemodynamically stable here. She does have a leukocytosis and elevated lactate. Patient was given broad-spectrum antibiotic coverage with vancomycin and Zosyn. She is admitted to the hospitalist service in stable condition for right foot cellulitis and necrotic ulceration. - Lab Data Lab results reviewed: Yes I reviewed the patient's lab results. Result diagrams: 04/08/18 16:52 04/08/18 16:52 Lab Results 04/08/18 04/08/18 04/08/18 Range/Units 16:52 16:52 16:52 WBC 13.6 H D (4.3-11.1) K/mcL RBC 2.58 L (3.82-4.97) M/mcL Hgb 7.7 L (11.5-15.4) g/dL Hct 24.4 L (35.3-44.9) % MCV 94.6 (83.0-100.0) fL MCH 29.8 (28.0-33.3) pg MCHC 31.6 (31.6-35.5) g/dL RDW 16.4 H (11.5-14.5) % Plt Count 317 (140-400) K/mcL MPV 9.2 L (9.4-12.4) fL Immature Gran % 0.5 (0-4) % Seg Neutrophils % 94.4 % Lymphocytes % 3.7 % Monocytes % 1.2 % Eosinophils % 0.1 % Basophils % 0.1 % Neutrophils # 12.8 H (1.6-8.9) K/mcL Lymphocytes # 0.5 L (0.6-4.6) K/mcL Monocytes # 0.2 (0.0-1.3) K/mcL Eosinophils # 0.0 (0.0-0.6) K/mcL Basophils # 0.0 (0.0-0.2) K/mcL Sodium 138 (136-145) mEq/L Potassium 4.2 (3.5-5.1) mEq/L Chloride 109 H (98-107) mEq/L Carbon Dioxide 22 L (23-29) mEq/L BUN 9 (8-23) mg/dL Creatinine 0.65 (0.60-1.20) mg/dL Est GFR ( Amer) > 60 (> 60) Est GFR (Non-Af Amer) > 60 (> 60) BUN/Creatinine Ratio 14 (6-26) Glucose 92 (70-105) mg/dL Calculated Osmolality 284 (280-300) Lactic Acid 2.7 H (0.5-2.2) mmol/L Calcium 7.6 L (8.6-10.3) mg/dL - Radiology Data Radiology results reviewed: Yes I reviewed the patient's radiology results. Foot X-Ray 04/08/18 16:15 IMPRESSION: No acute abnormalities. No destructive bony lesion identified D/ / Jeffrey Clifton MD / Jeffrey Clifton MD Interpreting Provider: Jeffrey Clifton MD [facility] - [facility] Situation: Demographics, MOA Background: Presenting Complaint, Relevant PMH, Meds, & Allergies Assessment: Vital Signs, Course and respsone to treatment, Exam Concerns, Patient/Family Expectation, Pertinant Lab Results Recommendation: Barrier(s) to disposition, Recommendation based on pending studies, treatments, or consults [facility] Report Given to: Dr. Johanna Ford Repor Time: 17:43
--- NOTE | 2018-04-08 16:51 | Emergency Department Note ---
Disposition Clinical Impression: Cellulitis of right foot, Elevated lactic acid level Foot ulcer Qualifiers: Laterality: right Non-pressure ulcer stage: unspecified non-pressure ulcer stage Qualified Code(s): L97.519 - Non-pressure chronic ulcer of other part of right foot with unspecified severity Leukocytosis Qualifiers: Leukocytosis type: unspecified Qualified Code(s): D72.829 - Elevated white blood cell count, unspecified Disposition: Admitted As Inpatient Condition: Fair General Adult HPI - General Chief complaint: ED Wound/Laceration Stated complaint: Right foot infection Time Seen by Provider: 04/08/18 15:47 Source: family Mode of arrival: wheelchair Limitations: physical limitation - History of Present Illness Pain Scale: 5 - Related Data Home Medications Medication Instructions Recorded Confirmed Atorvastatin Calcium [Lipitor] 80 mg PO DAILY 06/24/16 04/08/18 Cyclobenzaprine [Flexeril] 10 mg PO HS 06/24/16 04/08/18 Gabapentin [Neurontin] 600 mg PO HS 06/24/16 04/08/18 GlipiZIDE [Glipizide Xl] 5 mg PO BID 06/24/16 04/08/18 Montelukast [Singulair] 10 mg PO DAILY 06/24/16 04/08/18 Sertraline [Zoloft] 50 mg PO DAILY 06/24/16 04/08/18 metFORMIN [Glucophage] 1,000 mg PO BID 06/24/16 04/08/18 Meloxicam [Mobic] 15 mg PO DAILY 01/19/18 04/08/18 Oxycodone HCl 5 mg PO Q4H PRN 01/19/18 04/08/18 Potassium Chloride [Klor-Con 10] 30 meq PO TID 04/08/18 04/08/18 traZODone [TraZODone] 75 mg PO HS 04/08/18 04/08/18 Previous Rx's Medication Instructions Recorded Acetaminophen [Tylenol] 650 mg PO Q6HR PRN #30 tablet 01/14/18 Loperamide [Imodium] 2 mg PO AD PRN #30 capsule 01/29/18 Magic Mouthwash 5 ml PO Q4H PRN #240 ml 01/29/18 Ondansetron ODT [Zofran ODT] 4 mg SL Q6HR #20 tab.rapdis 01/29/18 Dexamethasone [Decadron] 4 mg PO BID PRN #42 tab 04/05/18 Prochlorperazine Maleate 10 mg PO Q6HR PRN #30 tablet 04/05/18 [Compazine] Allergies Allergy/AdvReac Type Severity Reaction Status Date / Time Sulfa (Sulfonamide Allergy Hives Verified 04/05/18 08:40 Antibiotics) Past Medical History - Past Medical History Medical history: Reports: arthritis, cancer, COPD, CVA, diabetes, hypertension, other Surgical history: Reports: , cancer surgery, cataract, cholecystectomy , hysterectomy, other Psychiatric history: Reports: anxiety, depression - Social History Smoking Status: Never smoker Smokeless Tobacco Status: No Alcohol use: Reports: none Drug use: Reports: none Physical Exam - General Limitations: physical limitation General appearance: alert, in no apparent distress Course Vital Signs Temperature 97.5 F L 04/08/18 15:39 Pulse Rate 87 04/08/18 15:39 Respiratory Rate 15 04/08/18 15:39 Blood Pressure 153/81 04/08/18 15:39 O2 Sat by Pulse Oximetry 99 04/08/18 15:39 Temperature 97.5 F L 04/08/18 16:28 Pulse Rate 80 04/08/18 17:42 Respiratory Rate 16 04/08/18 18:41 Blood Pressure 132/64 04/08/18 18:41 O2 Sat by Pulse Oximetry 100 04/08/18 17:42 Oxygen Delivery Oxygen Delivery Room Air Medical Decision Making - Lab Data Result diagrams: 04/08/18 16:52 04/08/18 16:52 Lab Results 04/08/18 04/08/18 04/08/18 Range/Units 16:52 16:52 16:52 WBC 13.6 H D (4.3-11.1) K/mcL RBC 2.58 L (3.82-4.97) M/mcL Hgb 7.7 L (11.5-15.4) g/dL Hct 24.4 L (35.3-44.9) % MCV 94.6 (83.0-100.0) fL MCH 29.8 (28.0-33.3) pg MCHC 31.6 (31.6-35.5) g/dL RDW 16.4 H (11.5-14.5) % Plt Count 317 (140-400) K/mcL MPV 9.2 L (9.4-12.4) fL Immature Gran % 0.5 (0-4) % Seg Neutrophils % 94.4 % Lymphocytes % 3.7 % Monocytes % 1.2 % Eosinophils % 0.1 % Basophils % 0.1 % Neutrophils # 12.8 H (1.6-8.9) K/mcL Lymphocytes # 0.5 L (0.6-4.6) K/mcL Monocytes # 0.2 (0.0-1.3) K/mcL Eosinophils # 0.0 (0.0-0.6) K/mcL Basophils # 0.0 (0.0-0.2) K/mcL Sodium 138 (136-145) mEq/L Potassium 4.2 (3.5-5.1) mEq/L Chloride 109 H (98-107) mEq/L Carbon Dioxide 22 L (23-29) mEq/L BUN 9 (8-23) mg/dL Creatinine 0.65 (0.60-1.20) mg/dL Est GFR ( Amer) > 60 (> 60) Est GFR (Non-Af Amer) > 60 (> 60) BUN/Creatinine Ratio 14 (6-26) Glucose 92 (70-105) mg/dL Calculated Osmolality 284 (280-300) Lactic Acid 2.7 H (0.5-2.2) mmol/L Calcium 7.6 L (8.6-10.3) mg/dL Attestation Statement - Attestation Attestation: I examined this patient and my medical decision-making was reviewed with the [employer] P[employer]ING HEADER/PA/Advanced Practice Nurse/Resident Physician. I agree with the documented findings, disposition and treatment plan as described except to the extent set forth below. Patient does have cancer and is undergoing chemotherapy and she presents with right foot erythema was sent here from the wound clinic for admission for cellulitis the patient will be admitted and started on intravenous vancomycin. Otherwise she is bright and alert and in no distress. Vital signs have been reviewed. Labs are pending. 1650
[2018-04-08 17:08] LABS: Basophils % 0.1 %; Eosinophils % 0.1 %; Hematocrit 24.4 % (35.3-44.9); Hemoglobin 7.7 g/dL (11.5-15.4); Immature Granulocytes % 0.5 % (0-4); Lymphocytes # 0.5 K/mcL (0.6-4.6); Lymphocytes % 3.7 %; Mean Corpuscular HGB Conc 31.6 g/dL (31.6-35.5); Mean Corpuscular Hemoglobin 29.8 pg (28.0-33.3); Mean Corpuscular Volume 94.6 fL (83.0-100.0); Mean Platelet Volume 9.2 fL (9.4-12.4); Monocytes # 0.2 K/mcL (0.0-1.3); Monocytes % 1.2 %; Neutrophils # 12.8 K/mcL (1.6-8.9); Platelet Count 317 K/mcL (140-400); Red Blood Count 2.58 M/mcL (3.82-4.97); Red Cell Distribution Width 16.4 % (11.5-14.5); Segmented Neutrophils % 94.4 %
[2018-04-08] MEDS ORDERED: Piperacillin/Tazobactam 3.375 GM in 0.9 % Sodium Chloride Mini Bag 100 ML IVPB ONE (17:14)
[2018-04-08] MEDS ORDERED: 0.9 % Sodium Chloride 1,000 ML IVC ONE (17:20)
[2018-04-08 17:25] LABS: BUN/Creatinine Ratio 14 (6-26); Blood Urea Nitrogen 9 mg/dL (8-23); Calcium 7.6 mg/dL (8.6-10.3); Carbon Dioxide 22 mEq/L (23-29); Chloride 109 mEq/L (98-107); Glucose 92 mg/dL (70-105); Osmolality,Calculated 284 (280-300); Potassium 4.2 mEq/L (3.5-5.1); Sodium 138 mEq/L (136-145); eGFR For Non-African Americans > 60 (> 60)
[2018-04-08] MEDS ORDERED: Naloxone 0.4 MG/ML INJ IVP PRN (18:25)
[2018-04-08] MEDS ORDERED: Ringers Solution, Lactated 1,000 ML IVC SCH (18:30)
--- NOTE | 2018-04-08 18:38 | Internal Med History&Physical ---
Date of Encounter: 04/08/18 Time of Encounter: 18:35 Internal Medicine - H&P: HPI Chief complaint: Right foot wound infection Admitted From: Home Plans for Post Hospital Care: Home History of present illness: Ms. Gracia is a 62 year old female with history of cancer involving her liver and lungs and diabetes who presents from wound care surgeon's office due to concern for infected right foot ulceration. The patient states that she first developed an ulcer on her right foot one week ago and states that due to her diabetes when she gets wounds they typically get bad quickly. Patient states that she sees Dr. Cheng and wound care clinic for her pressure ulcers on her buttocks and after evaluation of the right foot ulcer she was sent in for IV antibiotics. Patient denies any fever or chills, denies any chest pain, shortness of breath, nausea, vomiting, diarrhea. Patient states she was nauseous yesterday after chemotherapy. Patient currently undergoing chemotherapy for her cancer she is unsure of which source is the primary. In the emergency room x-ray of the right foot did not reveal any acute abnormalities. Due to the patient's diabetes she was started on vancomycin and Zosyn empirically. Patient was noted to have an elevated white blood cell count and slightly elevated lactic acid. Patient denies any recent travel or sick contacts. Patient denies any headache blurry vision double vision or neck stiffness. Patient admits increase in drainage from wound that is bloody to yellow and noticed an odor. We will be admitted for infected right diabetic ulcer with cellulitis. Past Med Surg Social Fam HX - Past Medical History Medical history: arthritis, cancer, COPD, CVA, diabetes, hypertension, other Additional medical history: Lung. Liver METS, hyperkalemia, hypocalcemia, anemia, hyponatremia, acute metabolic encephalopathy Psychiatric history: anxiety, depression - Past Surgical History Surgical History: , cancer surgery, cataract, cholecystectomy, hysterectomy, other Additional surgical history: toe removal - Social History Smoking Status: Never smoker Smokeless Tobacco Status: No Alcohol use: none Drug use: none - Family History Grandmother Family Member Ethnicity: Non- Living Status: Mother Family Member Ethnicity: Non- Living Status: Internal Medicine - H&P: Meds Atorvastatin Calcium [Lipitor] 80 mg PO DAILY 06/24/16 [History] Cyclobenzaprine [Flexeril] 10 mg PO HS 06/24/16 [History] Gabapentin [Neurontin] 600 mg PO HS 06/24/16 [History] GlipiZIDE [Glipizide Xl] 5 mg PO BID 06/24/16 [History] Montelukast [Singulair] 10 mg PO DAILY 06/24/16 [History] Sertraline [Zoloft] 50 mg PO DAILY 06/24/16 [History] metFORMIN [Glucophage] 1,000 mg PO BID 06/24/16 [History] Acetaminophen [Tylenol] 650 mg PO Q6HR PRN #30 tablet 01/14/18 [Rx] Meloxicam [Mobic] 15 mg PO DAILY 01/19/18 [History] Oxycodone HCl 5 mg PO Q4H PRN 01/19/18 [History] Loperamide [Imodium] 2 mg PO AD PRN #30 capsule 01/29/18 [Rx] Magic Mouthwash 5 ml PO Q4H PRN #240 ml 01/29/18 [Rx] Ondansetron ODT [Zofran ODT] 4 mg SL Q6HR #20 tab.rapdis 01/29/18 [Rx] Dexamethasone [Decadron] 4 mg PO BID PRN #42 tab 04/05/18 [Rx] Prochlorperazine Maleate [Compazine] 10 mg PO Q6HR PRN #30 tablet 04/05/18 [Rx] Potassium Chloride [Klor-Con 10] 30 meq PO TID 04/08/18 [History] traZODone [TraZODone] 75 mg PO HS 04/08/18 [History] 3 Allergy/AdvReac Type Severity Reaction Status Date / Time Sulfa (Sulfonamide Allergy Hives Verified 04/05/18 08:40 Antibiotics) All Systems PM: A 10-system review of systems was performed and is negative for pertinent findings except as documented above in the HPI. Review of systems: 10 point review of systems is obtained and is otherwise negative other than described in history of present illness - Constitutional Vitals: Temp Pulse Resp BP Pulse Ox 97.5 F L 80 18 129/61 100 04/08/18 16:28 04/08/18 17:42 04/08/18 17:42 04/08/18 17:42 04/08/18 17:42 Exam: Constitutional: No acute distress, Alert Psych: AAO x 3 HEENT: NCAT, EOMI Neck: supple, no JVD Cardio: regular rate and rhythm, +s1s2, no murmurs/rubs/gallops, no JVD Resp: clear to ascultation bilaterally, no wheezes/rales/ronchi Chest: port in right chest Abd: soft, non tender/non distended, positive bowel sounds, no gaurding/reboud/ ridgitity Extremities: Right lateral distal foot with approximately 3.5 x 4 cm ulceration with eschar and mild surrounding erythema, there appears to be a purulent drainage from the proximal aspect of the wound, there is no surrounding crepitus ; also with 2 sacral pressure ulcers present on admission these are not infected and were just cleaned and dressed by wound care clinic, will not take off dressing currently; also with few skin tears on anterior right gallagher, not currently infected Neuro: no focal deficits appreciated Lymph: no cervical/supraclavicular adenopahty apprecitated Internal Med - H&P Results - Labs CBC & Chem 7: 04/08/18 16:52 04/08/18 16:52 - Assessment and plan (1) Cellulitis of right foot Current Visit: Yes Status: Acute Assessment and plan: Pt with cellulitis of right foot associated with infected diabetic foot ulcer -Leukocytosis on admission but no other SIRS -mildly elevated lactic acid; will trend -continue IV vanco and zosyn -blood and wound cultures -podiatry consulted -wound care consulted (2) Unstageable pressure ulcer of right foot Current Visit: Yes Status: Acute Assessment and plan: Infected right lateral diabetic foot ulcer with eschar and surrounding cellulitis -sent in from wound care clinic for IV abx -xray of foot not concerning for osteo -IV vanco and zosyn -wound and blood cultures -podiatry consulted -wound care consulted (3) Pressure ulcer of buttock Current Visit: Yes Status: Acute Assessment and plan: Pt with chronic 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 present on admission -follows in wound care clinic -wounds cleaned and dressed today at clinic -wound care Qualifiers: Pressure injury stage: unspecified pressure injury stage Laterality: right Qualified Code(s): L89.319 - Pressure ulcer of right buttock, unspecified stage (4) Cancer Current Visit: Yes Status: Acute Assessment and plan: Cancer of liver and lung; unsure of primary -Chemo yesterday -outpt followup (5) Diabetes Current Visit: Yes Status: Acute Assessment and plan: -Chronic -on metformin and glypizide; hold while inpt -SSI -accuchecks -diabetic diet Qualifiers: Diabetes mellitus type: type 2 Diabetes mellitus residential insulin use: without residential use Diabetes mellitus complication status: with skin complications Diabetes mellitus complication detail: with foot ulcer Qualified Code(s): E11.621 - Type 2 diabetes mellitus with foot ulcer; L97.509 - Non-pressure chronic ulcer of other part of unspecified foot with unspecified severity (6) Anemia Current Visit: Yes Status: Acute Assessment and plan: Chronic anemia likely related to her chronic disease and chemotherapy -monitor cbc -transfuse < 7 Qualifiers: Anemia type: unspecified type Qualified Code(s): D64.9 - Anemia, unspecified (7) DVT prophylaxis Current Visit: Yes Status: Acute Assessment and plan: -sub q heparin - Time Spent With Patient Total time spent is greater than 50% in coordination of care (as documented) at patient's floor/unit and/or counseling patient: Greater than 35 minutes
[2018-04-08] MEDS ORDERED: Magic Mouthwash 10 ML UD Cup PO PRN (18:43)
[2018-04-08] MEDS: Insulin LISPRO 300 UNITS/3 ML VIAL SQ SCH (23:42)
[2018-04-09] MEDS: Gabapentin 300 MG CAPSULE PO SCH ×2 (04:14→21:32)
[2018-04-09] MEDS: traZODone 50 MG TABLET PO SCH ×2 (04:15→21:31)
[2018-04-09] MEDS: Ondansetron ODT 4 MG TAB.RAPDIS SL SCH ×5 (04:15→22:56)
[2018-04-09] MEDS: *HR* Heparin 5,000 UNIT/ML VIAL SQ SCH ×4 (04:15→21:34)
[2018-04-09 04:36] LABS: Basophils % 0.2 %; Eosinophils % 0.1 %; Lymphocytes % 1.6 %; Monocytes % 0.5 %
[2018-04-09 04:38] LABS: Basophils # 0.1 K/mcL (0.0-0.2); Hematocrit 23.1 % (35.3-44.9); Hemoglobin 7.4 g/dL (11.5-15.4); Immature Granulocytes % 7.2 % (0-4); Lymphocytes # 0.5 K/mcL (0.6-4.6); Mean Corpuscular Hemoglobin 30.1 pg (28.0-33.3); Mean Corpuscular Volume 93.9 fL (83.0-100.0); Mean Platelet Volume 9.4 fL (9.4-12.4); Monocytes # 0.2 K/mcL (0.0-1.3); Neutrophils # 26.3 K/mcL (1.6-8.9); Platelet Count 314 K/mcL (140-400); Red Blood Count 2.46 M/mcL (3.82-4.97); Red Cell Distribution Width 16.4 % (11.5-14.5); Segmented Neutrophils % 90.4 %
[2018-04-09 04:51] LABS: BUN/Creatinine Ratio 11 (6-26); Blood Urea Nitrogen 7 mg/dL (8-23); Calcium 7.3 mg/dL (8.6-10.3); Carbon Dioxide 23 mEq/L (23-29); Chloride 110 mEq/L (98-107); Glucose 49 mg/dL (70-105); Magnesium 1.2 mg/dL (1.6-2.6); Osmolality,Calculated 287 (280-300); Phosphorous 2.3 mg/dL (2.7-4.5); Potassium 4.1 mEq/L (3.5-5.1); Sodium 141 mEq/L (136-145); eGFR For Non-African Americans > 60 (> 60)
[2018-04-09 05:46] LABS: Hypochromasia Present (Not Present); Platelet Estimate Normal (Normal)
[2018-04-09] MEDS: Insulin LISPRO 300 UNITS/3 ML VIAL SQ SCH ×4 (07:58→21:19)
[2018-04-09] MEDS: *HR* OxyCODONE Immed Rel 5 MG TABLET PO PRN (08:55)
--- NOTE | 2018-04-09 14:47 | Internal Med Progress Note ---
Hospitalist Progress Note - Encounter Date of Encounter: 04/09/18 Time of Encounter: 14:43 - Subjective Interval History: Patient seen and examined at bedside. Patient no overnight acute events. Patient states that she feels fine. No specific complaints. Denies any chest pain, shortness breath, nausea, vomiting, diarrhea. - Exam Vitals: Temp Pulse Resp BP Pulse Ox 98.0 F 82 14 131/76 96 04/09/18 12:20 04/09/18 12:20 04/09/18 12:20 04/09/18 12:20 04/09/18 12:20 Exam: Constitutional: No acute distress, Alert Psych: AAO x 3 HEENT: NCAT, EOMI Neck: supple, no JVD Cardio: regular rate and rhythm, +s1s2 Resp: clear to ascultation bilaterally Chest: port in right chest Abd: soft, non tender/non distended, positive bowel sounds, no gaurding/reboud/ ridgitity Extremities: Right lateral distal foot with approximately 3.5 x 4 cm ulceration with eschar and mild surrounding erythema, the erythema still present however slightly improved; the drainage from the wound has decreased, and is more serous ; had sacral and wound cleaned and dressing change by wound care today Neuro: no focal deficits appreciated - Assessment and Plan (1) Cellulitis of right foot Current Visit: Yes Status: Acute Assessment and Plan: Pt with cellulitis of right foot associated with infected diabetic foot ulcer -Leukocytosis on admission but no other SIRS; Leukocytosis increased to 29K today -mildly elevated lactic acid; now resolved -continue IV vanco and zosyn -blood and wound cultures ordered, blood cx NGTD; wound not draining enough to culutre currently -podiatry consulted to eval for debridment -wound care following -afebrile -cbc in am (2) Unstageable pressure ulcer of right foot Current Visit: Yes Status: Acute Assessment and Plan: Infected right lateral diabetic foot ulcer with eschar and surrounding cellulitis -sent in from wound care clinic for IV abx -xray of foot not concerning for osteo -IV vanco and zosyn -blood cx NGTD; wound cx not preformed due to decrease in drainage -podiatry consulted to eval for debridment -wound care following (3) Pressure ulcer of buttock Current Visit: Yes Status: Acute (4) Cancer Current Visit: Yes Status: Acute Assessment and Plan: Cancer of liver and lung; unsure of primary -Chemo yesterday -outpt followup (5) Diabetes Current Visit: Yes Status: Acute Assessment and Plan: -Chronic -on metformin and glypizide; hold while inpt -SSI -accuchecks -diabetic diet (6) Anemia Current Visit: Yes Status: Acute Assessment and Plan: Chronic anemia likely related to her chronic disease and chemotherapy -monitor cbc -transfuse < 7 (7) Hypophosphatemia Current Visit: Yes Status: Acute Assessment and Plan: -replace -check in am (8) Hypomagnesemia Current Visit: Yes Status: Acute Assessment and Plan: -replace -check in am (9) DVT prophylaxis Current Visit: Yes Status: Acute Assessment and Plan: -sub q heparin DVT Prophylaxis: hep sq - Summary of Assessment and Plan Summary of Assessment and Plan: Spoke to Dr. Mcwilliams, to evaluate patient today. Continue antibiotics. check cbc in am. follow cx. - Time Spent with Patient Total time spent is greater than 50% in coordination of care (as documented) at patient's floor/unit and/or counseling patient: 25 - 35 minutes Plan of Care Discussed with: patient Internal Medicine: Result - Labs CBC & Chem 7: 04/09/18 04:04 04/09/18 04:04 Labs: Short CBC 04/09/18 Range/Units 04:04 WBC 29.1 H D (4.3-11.1) K/mcL Hgb 7.4 L (11.5-15.4) g/dL Hct 23.1 L (35.3-44.9) % Plt Count 314 (140-400) K/mcL Neutrophils # 26.3 H (1.6-8.9) K/mcL BMP 04/09/18 04:04 Sodium 141 Potassium 4.1 Chloride 110 H Carbon Dioxide 23 BUN 7 L Creatinine 0.62 Glucose 49 L Calcium 7.3 L Consult Discharge Plan - Plan Referrals: Ivan Reid MD [Primary Care Provider] - (3) Pressure ulcer of buttock Qualifiers: Pressure injury stage: unspecified pressure injury stage Laterality: right Qualified Code(s): L89.319 - Pressure ulcer of right buttock, unspecified stage (5) Diabetes Qualifiers: Diabetes mellitus type: type 2 Diabetes mellitus oysterman insulin use: without long-term use Diabetes mellitus complication status: with skin complications Diabetes mellitus complication detail: with foot ulcer Qualified Code(s): E11.621 - Type 2 diabetes mellitus with foot ulcer; L97.509 - Non-pressure chronic ulcer of other part of unspecified foot with unspecified severity (6) Anemia Qualifiers: Anemia type: unspecified type Qualified Code(s): D64.9 - Anemia, unspecified
[2018-04-09] MEDS: Magnesium Oxide 400 MG TABLET PO SCH ×2 (16:08→21:32)
[2018-04-09] MEDS: Piperacillin/Tazobactam 3.375 GM in 0.9 % Sodium Chloride Mini Bag 100 ML IVPB SCH ×2 (16:08→22:48)
[2018-04-09] MEDS: Acetaminophen 325 MG TABLET PO PRN (16:11)
--- NOTE | 2018-04-09 17:55 | Podiatry Consult Note ---
Date of Encounter: 04/09/18 Time of Encounter: 17:53 Assessment and Plan (1) Diabetic foot ulcer associated with secondary diabetes mellitus Current visit: No Status: Acute Assessment: #1 diabetic foot ulcer unstageable plantar lateral distal right forefoot as measured without clinical evidence of active infection #2 multiple comorbidities as outlined in history Plan: #1 agree with present antibiotic therapy broad-spectrum #2 use of Santyl ointment twice a day after cleansing the wound was soap and water. #3 recommend return to wound care after discharge for ongoing care #4 recommend use of Darco postop shoe or cast boot to offload right forefoot Qualifiers: Diabetic foot ulcer location: unspecified part of foot Laterality: right Non-pressure ulcer stage: unspecified non-pressure ulcer stage Qualified Code( s): E08.621 - Diabetes mellitus due to underlying condition with foot ulcer; L97.519 - Non-pressure chronic ulcer of other part of right foot with unspecified severity History of Present Illness Chief complaint: A foot ulcer, right foot 7 month duration HPI: Ms. Gracia is a 62 year old female presents with multiple comorbidities. I was consulted for a diabetic foot ulcer. Patient states is been present for 7-9 months. 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 This wound is been undergoing appropriate treatment in wound care clinic with Dr. Garcia. She presently has no fever chills nausea vomiting chest pain shortness of breath. Past Med Surg Social Fam HX - Past Medical History Medical history: arthritis, cancer, COPD, CVA, diabetes, hypertension, other Additional medical history: Lung. Liver METS, hyperkalemia, hypocalcemia, anemia, hyponatremia, acute metabolic encephalopathy Psychiatric history: anxiety, depression - Past Surgical History Surgical History: , cancer surgery, cataract, cholecystectomy, hysterectomy, other Additional surgical history: toe removal - Social History Smoking Status: Never smoker Smokeless Tobacco Status: No Alcohol use: none Drug use: none - Family History Grandmother Family Member Ethnicity: Non- Living Status: Mother Family Member Ethnicity: Non- Living Status: Medications and Allergies Atorvastatin Calcium [Lipitor] 80 mg PO DAILY 06/24/16 [History] Cyclobenzaprine [Flexeril] 10 mg PO HS 06/24/16 [History] Gabapentin [Neurontin] 600 mg PO HS 06/24/16 [History] GlipiZIDE [Glipizide Xl] 5 mg PO BID 06/24/16 [History] Montelukast [Singulair] 10 mg PO DAILY 06/24/16 [History] Sertraline [Zoloft] 50 mg PO DAILY 06/24/16 [History] metFORMIN [Glucophage] 1,000 mg PO BID 06/24/16 [History] Acetaminophen [Tylenol] 650 mg PO Q6HR PRN #30 tablet 01/14/18 [Rx] Meloxicam [Mobic] 15 mg PO DAILY 01/19/18 [History] Oxycodone HCl 5 mg PO Q4H PRN 01/19/18 [History] Loperamide [Imodium] 2 mg PO AD PRN #30 capsule 01/29/18 [Rx] Magic Mouthwash 5 ml PO Q4H PRN #240 ml 01/29/18 [Rx] Ondansetron ODT [Zofran ODT] 4 mg SL Q6HR #20 tab.rapdis 01/29/18 [Rx] Dexamethasone [Decadron] 4 mg PO BID PRN #42 tab 04/05/18 [Rx] Prochlorperazine Maleate [Compazine] 10 mg PO Q6HR PRN #30 tablet 04/05/18 [Rx] Potassium Chloride [Klor-Con 10] 30 meq PO TID 04/08/18 [History] traZODone [TraZODone] 75 mg PO HS 04/08/18 [History] 3 Allergy/AdvReac Type Severity Reaction Status Date / Time Sulfa (Sulfonamide Allergy Hives Verified 04/05/18 08:40 Antibiotics) All Systems Reviewed: The remainder of the systems were reviewed and are negative Physical Exam - Constitutional Vitals: Temp Pulse Resp BP Pulse Ox 98.9 F 99 16 133/75 95 04/09/18 15:45 04/09/18 15:45 04/09/18 15:45 04/09/18 15:45 04/09/18 15:45 General appearance: cooperative, obese - Extremities Exam Extremities exam: Present: normal capillary refill, pedal edema - Expanded Lower Extremities Exam Foot/Toe exam: Present: amputation (History of amputation of several toes the right foot remote. She exhibits mild edema and erythema of the dorsal lateral aspect of the right foot but without fluctuance odor or necrosis. We do observe an ulceration full-thickness unstageable of the plantar lateral aspect of the right forefoot beneath the fifth MTPJ measuring approximately 2.5 cm in length 1.5 cm in width with 100% eschar and no drainage.) Neuro vascular tendon exam: Present: abnormal 2-point discrimination, sensory deficit (Patient exhibits loss of protective sensation 2 point discrimination, light touch vibration conditions a temperature from toes to tibial bilaterally) Gait: Present: not tested/not observed - Skin Skin exam: Present: erythema, warm - Vascular Capillary Refill: less than 3 seconds (Pedal pulses are readily palpable the right foot DP and PT are graded at 2/4) Lower Extremity Vascular: no vascular compromise Results - Labs Result Diagrams: 04/09/18 04:04 04/09/18 04:04 Labs: Abnormal lab results WBC 29.1 K/mcL (4.3-11.1) H D 04/09/18 04:04 RBC 2.46 M/mcL (3.82-4.97) L 04/09/18 04:04 Hgb 7.4 g/dL (11.5-15.4) L 04/09/18 04:04 Hct 23.1 % (35.3-44.9) L 04/09/18 04:04 RDW 16.4 % (11.5-14.5) H 04/09/18 04:04 Immature Gran % 7.2 % (0-4) H 04/09/18 04:04 Neutrophils # 26.3 K/mcL (1.6-8.9) H 04/09/18 04:04 Lymphocytes # 0.5 K/mcL (0.6-4.6) L 04/09/18 04:04 Hypochromasia Present (Not Present) A 04/09/18 04:04 Chloride 110 mEq/L (98-107) H 04/09/18 04:04 BUN 7 mg/dL (8-23) L 04/09/18 04:04 Glucose 49 mg/dL (70-105) L 04/09/18 04:04 POC Glucose 150 mg/dL (70-99) H 04/09/18 16:21 Calcium 7.3 mg/dL (8.6-10.3) L 04/09/18 04:04 Phosphorus 2.3 mg/dL (2.7-4.5) L 04/09/18 04:04 Magnesium 1.2 mg/dL (1.6-2.6) L 04/09/18 04:04 H & H 04/09/18 Range/Units 04:04 Hgb 7.4 L (11.5-15.4) g/dL Hct 23.1 L (35.3-44.9) % All other labs normal. Consult Discharge Plan - Plan Referrals: Ivan Reid MD [Primary Care Provider] -
[2018-04-10 03:22] LABS: Mean Platelet Volume 9.4 fL (9.4-12.4)
[2018-04-10 03:25] LABS: Hematocrit 22.9 % (35.3-44.9); Hemoglobin 7.3 g/dL (11.5-15.4); Immature Platelets 2.4 % (1.1-6.1); Mean Corpuscular HGB Conc 31.9 g/dL (31.6-35.5); Mean Corpuscular Hemoglobin 31.1 pg (28.0-33.3); Mean Corpuscular Volume 97.4 fL (83.0-100.0); Platelet Count 321 K/mcL (140-400); Red Blood Count 2.35 M/mcL (3.82-4.97); Red Cell Distribution Width 16.6 % (11.5-14.5)
[2018-04-10 04:23] LABS: BUN/Creatinine Ratio 12 (6-26); Blood Urea Nitrogen 8 mg/dL (8-23); Carbon Dioxide 26 mEq/L (23-29); Chloride 111 mEq/L (98-107); Glucose 84 mg/dL (70-105); Osmolality,Calculated 290 (280-300); Potassium 3.6 mEq/L (3.5-5.1); Sodium 141 mEq/L (136-145); eGFR For Non-African Americans > 60 (> 60)
[2018-04-10 04:24] LABS: Lymphocytes # 1.7 K/mcL (0.6-4.6); Magnesium 1.3 mg/dL (1.6-2.6); Neutrophils # 26.2 K/mcL (1.6-8.9); Phosphorous 3.1 mg/dL (2.7-4.5); Platelet Estimate Normal (Normal)
[2018-04-10 04:25] LABS: Anisocytosis 1+ (Not Present); Poikilocytosis 1+ (Not Present)
[2018-04-10] MEDS: *HR* Heparin 5,000 UNIT/ML VIAL SQ SCH ×3 (06:06→21:24)
[2018-04-10] MEDS: Ondansetron ODT 4 MG TAB.RAPDIS SL SCH ×3 (06:07→17:30)
[2018-04-10] MEDS: Piperacillin/Tazobactam 3.375 GM in 0.9 % Sodium Chloride Mini Bag 100 ML IVPB SCH ×3 (06:07→21:31)
[2018-04-10] MEDS: Magnesium Oxide 400 MG TABLET PO SCH ×2 (07:24→21:23)
[2018-04-10] MEDS: Insulin LISPRO 300 UNITS/3 ML VIAL SQ SCH ×4 (07:26→21:24)
--- NOTE | 2018-04-10 11:26 | Internal Med Progress Note ---
Hospitalist Progress Note - Encounter Date of Encounter: 04/10/18 Time of Encounter: 11:23 - Subjective Interval History: Patient seen and examined at bedside. Patient no overnight acute events. Patient states that she feels fine. Continues to have no complaints besides pain in her buttocks that is unchanged from prior and related to her wounds. Patient denies any chest pain, shortness breath, nausea, vomiting, diarrhea. Patient's been afebrile. Patient evaluated by podiatry yesterday who did not feel that the right diabetic wound is infected. Ice wean to the patient that her white blood cell count still remains elevated and now with a bandemia. Patient eager to go home but I explained that I would rather continue antibiotics and have infection disease evaluate her. - Exam Vitals: Temp Pulse Resp BP Pulse Ox 98.0 F 87 15 124/65 97 04/10/18 11:04 04/10/18 11:04 04/10/18 11:04 04/10/18 11:04 04/10/18 11:04 Exam: Constitutional: No acute distress, Alert Psych: AAO x 3 HEENT: NCAT, EOMI Neck: supple, no JVD, no neck stiffness Cardio: regular rate and rhythm, +s1s2 Resp: clear to ascultation bilaterally Chest: port in right chest with no erythema or tenderness Abd: soft, non tender/non distended, positive bowel sounds, no gaurding/reboud/ ridgitity Extremities: Right lateral distal foot with approximately 3.5 x 4 cm ulceration with eschar, there is no purulence, surrounding erythema is resolved, there is no drainage or fluctuance; bilateral buttocks pressure ulcerations examined both sides revealed shallow ulceration with skin breakdown with granulation tissue and no evidence of cellulitis or infection Derm: Few areas on forearms and shins of skin breakdown with scabbing, no cellulitis or erythema Neuro: no focal deficits appreciated - Assessment and Plan (1) Cellulitis of right foot Current Visit: Yes Status: Acute Assessment and Plan: Pt with cellulitis of right foot associated with infected diabetic foot ulcer -Leukocytosis on admission but no other SIRS; Leukocytosis increased to 29K and remains at 28K today -mildly elevated lactic acid; now resolved -cellulitis appears resolved -podiatry does not appreciate any active infection -Now with bandemia -unsure of etiology of conitnued leukocytosis with bandemia; possibly related to chemo? has used steroids for a few days prior to adimssion with chemo -will consult ID for evaluation -continue IV vanco and zosyn for now -blood cx ngtd -podiatry recommeded continued wound care and f/u in wound care clinic -wound care following -afebrile -cbc in am (2) Unstageable pressure ulcer of right foot Current Visit: Yes Status: Acute Assessment and Plan: -Infected right lateral diabetic foot ulcer with eschar and surrounding cellulitis -Cellulitis resolved -Podiatry does not feel that the ulcer is currently infected and drainage is resolved -Please see above -ID consultation to evaluate leukocytosis -The antibiotics for now (3) Pressure ulcer of buttock Current Visit: Yes Status: Acute Assessment and Plan: Pt with chronic 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 present on admission -These are not infected -follows in wound care clinic -wounds cleaned and dressed by wound care continue dressing changes (4) Cancer Current Visit: Yes Status: Acute Assessment and Plan: Cancer of liver and lung; unsure of primary -Chemo day prior to admission -outpt followup (5) Diabetes Current Visit: Yes Status: Acute Assessment and Plan: -Chronic -on metformin and glypizide; hold while inpt -SSI -accuchecks -diabetic diet (6) Anemia Current Visit: Yes Status: Acute Assessment and Plan: Chronic anemia likely related to her chronic disease and chemotherapy -monitor cbc -transfuse < 7 (7) Hypophosphatemia Current Visit: Yes Status: Acute Assessment and Plan: -replaced and WNL (8) Hypomagnesemia Current Visit: Yes Status: Acute Assessment and Plan: -replaced; conintue mag ox bid -check in am (9) DVT prophylaxis Current Visit: Yes Status: Acute Assessment and Plan: -sub q heparin DVT Prophylaxis: hep sq - Summary of Assessment and Plan Summary of Assessment and Plan: -Leukocytosis remains now with bandemia -Unsure of etiology could be chemotherapy related -Consult ID for evaluation -Continue antibiotics and meantime - Time Spent with Patient Total time spent is greater than 50% in coordination of care (as documented) at patient's floor/unit and/or counseling patient: 25 - 35 minutes Plan of Care Discussed with: patient Internal Medicine: Result - Labs CBC & Chem 7: 04/10/18 02:50 04/10/18 02:50 Labs: Short CBC 04/10/18 Range/Units 02:50 WBC 28.5 H (4.3-11.1) K/mcL Hgb 7.3 L (11.5-15.4) g/dL Hct 22.9 L (35.3-44.9) % Plt Count 321 (140-400) K/mcL Neutrophils # 26.2 H (1.6-8.9) K/mcL BMP 04/10/18 02:50 Sodium 141 Potassium 3.6 Chloride 111 H Carbon Dioxide 26 BUN 8 Creatinine 0.68 Glucose 84 Calcium 7.0 L Consult Discharge Plan - Plan Referrals: Ivan Reid MD [Primary Care Provider] - (3) Pressure ulcer of buttock Qualifiers: Pressure injury stage: unspecified pressure injury stage Laterality: right Qualified Code(s): L89.319 - Pressure ulcer of right buttock, unspecified stage (5) Diabetes Qualifiers: Diabetes mellitus type: type 2 Diabetes mellitus half-way insulin use: without ferry terminal agent use Diabetes mellitus complication status: with skin complications Diabetes mellitus complication detail: with foot ulcer Qualified Code(s): E11.621 - Type 2 diabetes mellitus with foot ulcer; L97.509 - Non-pressure chronic ulcer of other part of unspecified foot with unspecified severity (6) Anemia Qualifiers: Anemia type: unspecified type Qualified Code(s): D64.9 - Anemia, unspecified
[2018-04-10] MEDS: *HR* OxyCODONE Immed Rel 5 MG TABLET PO PRN ×2 (13:25→21:23)
[2018-04-10] MEDS: traZODone 50 MG TABLET PO SCH (21:22)
[2018-04-10] MEDS: Gabapentin 300 MG CAPSULE PO SCH (21:24)
[2018-04-11] MEDS: Ondansetron ODT 4 MG TAB.RAPDIS SL SCH ×4 (00:39→17:26)
[2018-04-11 02:19] LABS: Hematocrit 22.6 % (35.3-44.9); Hemoglobin 7.2 g/dL (11.5-15.4); Mean Corpuscular HGB Conc 31.9 g/dL (31.6-35.5); Mean Corpuscular Hemoglobin 31.2 pg (28.0-33.3); Mean Corpuscular Volume 97.8 fL (83.0-100.0); Mean Platelet Volume 9.4 fL (9.4-12.4); Platelet Count 276 K/mcL (140-400); Red Blood Count 2.31 M/mcL (3.82-4.97); Red Cell Distribution Width 16.7 % (11.5-14.5)
[2018-04-11 03:25] LABS: Eosinophils # 0.2 K/mcL (0.0-0.6); Lymphocytes # 0.5 K/mcL (0.6-4.6); Monocytes # 0.2 K/mcL (0.0-1.3); Platelet Estimate Normal (Normal)
[2018-04-11] MEDS: Piperacillin/Tazobactam 3.375 GM in 0.9 % Sodium Chloride Mini Bag 100 ML IVPB SCH ×2 (06:06→13:52)
[2018-04-11] MEDS: *HR* Heparin 5,000 UNIT/ML VIAL SQ SCH ×3 (06:06→21:00)
[2018-04-11] MEDS: Insulin LISPRO 300 UNITS/3 ML VIAL SQ SCH ×4 (07:30→21:00)
[2018-04-11] MEDS: Magnesium Oxide 400 MG TABLET PO SCH ×2 (07:30→20:59)
[2018-04-11] MEDS: *HR* OxyCODONE Immed Rel 5 MG TABLET PO PRN (11:34)
--- NOTE | 2018-04-11 13:58 | Internal Med Progress Note ---
Hospitalist Progress Note - Encounter Date of Encounter: 04/11/18 Time of Encounter: 13:56 - Subjective Interval History: Patient seen and examined at bedside. Patient no overnight acute events. Patient continues to feel fine, patient denies any complaints denies any chest pain, shortness breath, nausea, vomiting, diarrhea. I expressed to the patient that her leukocytosis is improving slowly as is her bandemia and explained this. She is agreeable to wait for ID evaluation tomorrow and hopefully anticipate discharge. I told her her cultures are growing staph aureus and we are awaiting sensitivities. - Exam Vitals: Temp Pulse Resp BP Pulse Ox 98.2 F 84 17 131/78 98 04/11/18 11:18 04/11/18 11:18 04/11/18 11:18 04/11/18 11:18 04/11/18 11:18 Exam: Constitutional: No acute distress, Alert Psych: AAO x 3 HEENT: NCAT, EOMI Neck: no neck stiffness Cardio: regular rate and rhythm Resp: clear to ascultation bilaterally Chest: port in right chest with no erythema or tenderness Abd: soft, non tender/non distended, positive bowel sounds, no gaurding/reboud/ ridgitity Extremities: Right lateral distal foot with approximately 3.5 x 4 cm ulceration with eschar, there is no purulence, surrounding erythema is resolved, there is no drainage or fluctuance; no crepitus bilateral buttocks pressure ulcerations examined both sides revealed shallow ulceration with skin breakdown with granulation tissue and no evidence of cellulitis or infection Derm: Few areas on forearms and shins of skin breakdown with scabbing, no cellulitis or erythema Neuro: no focal deficits appreciated - Assessment and Plan (1) Cellulitis of right foot Current Visit: Yes Status: Acute Assessment and Plan: Pt with cellulitis of right foot associated with infected diabetic foot ulcer -Leukocytosis on admission but no other SIRS; Leukocytosis increased to 29K and slowly improving to 22K today -mildly elevated lactic acid; now resolved -cellulitis resolved -podiatry does not appreciate any active infection -Now with bandemia that is improving -unsure of etiology of conitnued leukocytosis with bandemia; possibly related to chemo? has used steroids for a few days prior to adimssion with chemo -will consult ID for evaluation -continue IV vanco and dc zosyn -blood cx ngtd -wound cx with Staph aureus -podiatry recommeded continued wound care and f/u in wound care clinic -wound care following -afebrile -cbc in am (2) Unstageable pressure ulcer of right foot Current Visit: Yes Status: Acute Assessment and Plan: -Infected right lateral diabetic foot ulcer with eschar and surrounding cellulitis -Cellulitis resolved -Podiatry does not feel that the ulcer is currently infected and drainage is resolved -Please see above -ID consultation to evaluate leukocytosis -wound cx with staph aureus -continue vanco; dc zosyn (3) Pressure ulcer of buttock Current Visit: Yes Status: Acute Assessment and Plan: Pt with chronic 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 present on admission -These are not infected -follows in wound care clinic -wounds cleaned and dressed by wound care continue dressing changes (4) Cancer Current Visit: Yes Status: Acute Assessment and Plan: Cancer of liver and lung; unsure of primary -Chemo day prior to admission -outpt followup (5) Diabetes Current Visit: Yes Status: Acute Assessment and Plan: -Chronic -on metformin and glypizide; hold while inpt -SSI -accuchecks -diabetic diet (6) Anemia Current Visit: Yes Status: Acute Assessment and Plan: Chronic anemia likely related to her chronic disease and chemotherapy -monitor cbc -transfuse < 7 (7) Hypophosphatemia Current Visit: Yes Status: Acute Assessment and Plan: -replaced and WNL (8) Hypomagnesemia Current Visit: Yes Status: Acute Assessment and Plan: -replaced; conintue mag ox bid -check in am (9) DVT prophylaxis Current Visit: Yes Status: Acute Assessment and Plan: -sub q heparin DVT Prophylaxis: hep sq - Summary of Assessment and Plan Summary of Assessment and Plan: -Leukocytosis with bandemia slowly improving -Unsure of etiology could be chemotherapy related -Consult ID for evaluation -Continue iv vanco -IV Zosyn discontinued per cultures -Hopefully can transition to orals tomorrow if leukocytosis improving and ID agrees and anticipate discharge tomorrow - Time Spent with Patient Total time spent is greater than 50% in coordination of care (as documented) at patient's floor/unit and/or counseling patient: 25 - 35 minutes Plan of Care Discussed with: patient Internal Medicine: Result - Labs CBC & Chem 7: 04/11/18 02:05 04/10/18 02:50 Consult Discharge Plan - Plan Referrals: Ivan Reid MD [Primary Care Provider] - (3) Pressure ulcer of buttock Qualifiers: Pressure injury stage: unspecified pressure injury stage Laterality: right Qualified Code(s): L89.319 - Pressure ulcer of right buttock, unspecified stage (5) Diabetes Qualifiers: Diabetes mellitus type: type 2 Diabetes mellitus segment assembler insulin use: without prison use Diabetes mellitus complication status: with skin complications Diabetes mellitus complication detail: with foot ulcer Qualified Code(s): E11.621 - Type 2 diabetes mellitus with foot ulcer; L97.509 - Non-pressure chronic ulcer of other part of unspecified foot with unspecified severity (6) Anemia Qualifiers: Anemia type: unspecified type Qualified Code(s): D64.9 - Anemia, unspecified
[2018-04-11] MEDS: Gabapentin 300 MG CAPSULE PO SCH (20:58)
[2018-04-11] MEDS: traZODone 50 MG TABLET PO SCH (20:59)
[2018-04-12] MEDS: Ondansetron ODT 4 MG TAB.RAPDIS SL SCH ×4 (00:24→17:57)
[2018-04-12 03:14] LABS: Basophils % 0.1 %; Eosinophils % 0.3 %; Hematocrit 22.3 % (35.3-44.9); Lymphocytes # 0.8 K/mcL (0.6-4.6); Lymphocytes % 9.9 %; Mean Corpuscular HGB Conc 31.4 g/dL (31.6-35.5); Mean Corpuscular Hemoglobin 30.6 pg (28.0-33.3); Mean Corpuscular Volume 97.4 fL (83.0-100.0); Mean Platelet Volume 9.1 fL (9.4-12.4); Monocytes # 0.2 K/mcL (0.0-1.3); Monocytes % 2.4 %; Platelet Count 202 K/mcL (140-400); Red Blood Count 2.29 M/mcL (3.82-4.97); Red Cell Distribution Width 16.4 % (11.5-14.5); Segmented Neutrophils % 85.3 %
[2018-04-12 03:33] LABS: BUN/Creatinine Ratio 13 (6-26); Blood Urea Nitrogen 8 mg/dL (8-23); Calcium 7.5 mg/dL (8.6-10.3); Carbon Dioxide 26 mEq/L (23-29); Chloride 106 mEq/L (98-107); Glucose 143 mg/dL (70-105); Osmolality,Calculated 283 (280-300); Potassium 3.7 mEq/L (3.5-5.1); Sodium 136 mEq/L (136-145); eGFR For Non-African Americans > 60 (> 60)
[2018-04-12 03:41] LABS: Neutrophils # 6.6 K/mcL (1.6-8.9)
[2018-04-12 03:54] LABS: Platelet Estimate Normal (Normal)
[2018-04-12] MEDS: *HR* Heparin 5,000 UNIT/ML VIAL SQ SCH ×3 (05:14→22:39)
[2018-04-12] MEDS: Magnesium Oxide 400 MG TABLET PO SCH ×2 (08:49→22:38)
[2018-04-12] MEDS: Insulin LISPRO 300 UNITS/3 ML VIAL SQ SCH ×4 (09:00→22:43)
--- NOTE | 2018-04-12 11:08 | Infectious Disease Consult ---
Date of Encounter: 04/12/18 Time of Encounter: 11:04 Assessment and Plan (1) Leukocytosis Status: Acute Assessment and plan: The patient had leukocytosis with neutrophilic predominance noted on admission. Likely secondary to right foot cellulitis, worsened by recent steroid use. Improved. WBC normalized. Continue to trend. Qualifiers: Leukocytosis type: unspecified Qualified Code(s): D72.829 - Elevated white blood cell count, unspecified (2) Cellulitis of right foot Status: Acute Assessment and plan: Location: Right foot. Causative organism: likely MRSA. Likely secondary to DFU. Improved per patient report. Foot x-ray negative for acute abnormality. Podiatry consulted. Appreciate recommendations. Because the patient is immunocompromised, concern for underlying infection that may not manifest due to the patient's depressed immune response. Check ESR and CRP. If elevated, recommend imaging to evaluate further. Continue Vancomycin IV. Pharmacy to dose. Goal trough ~15. Duration of treatment depends on the clinical picture. Monitor renal function and for drug toxicity and dose-adjust antibiotics. (3) Foot ulcer Status: Acute Assessment and plan: Location: Right lateral foot. Etiology: Unclear. Foot x-ray negative for acute abnormality. Podiatry consulted and following. Wound care per the podiatry team. Qualifiers: Laterality: right Non-pressure ulcer stage: unspecified non-pressure ulcer stage Qualified Code(s): L97.519 - Non-pressure chronic ulcer of other part of right foot with unspecified severity (4) Wounds, multiple open, lower extremity Status: Acute Assessment and plan: Superficial, scabbed lesions noted to the BLE. Clinically do not appear infected. Qualifiers: Encounter type: initial encounter Laterality: left Qualified Code(s): S81.802A - Unspecified open wound, left lower leg, initial encounter (5) Elevated lactic acid level Status: Acute Assessment and plan: Likely secondary to infectious etiology. Resolved. (6) Pressure ulcer of buttock Status: Acute Assessment and plan: Dressing changes per the wound care team's recommendations. Aggressive offloading and Q2H turns. Qualifiers: Pressure injury stage: unspecified pressure injury stage Laterality: right Qualified Code(s): L89.319 - Pressure ulcer of right buttock, unspecified stage (7) Anemia Status: Acute Qualifiers: Anemia type: unspecified type Qualified Code(s): D64.9 - Anemia, unspecified (8) Small cell lung cancer Status: Acute Assessment and plan: Diagnosed in December 2017. Primary lung with mets to the liver and spine. Received cycle 5 of Cisplatin/carboplatin and Etoposide 04/05, 04/06, and 04/07. [facility] (9) Hypertension Status: Chronic Qualifiers: Hypertension type: essential hypertension Qualified Code(s): I10 - Essential (primary) hypertension (10) CVA (cerebral vascular accident) Status: Acute Qualifiers: CVA mechanism: unspecified Qualified Code(s): I63.9 - Cerebral infarction, unspecified (11) Diabetes Status: Chronic Assessment and plan: Hgb 6.8% in February 2018. Recommend aggressive glucose monitoring and control to promote wound healing and prevent re-infection. Qualifiers: Diabetes mellitus type: type 2 Diabetes mellitus roasterman insulin use: without penitentiary use Diabetes mellitus complication status: with skin complications Diabetes mellitus complication detail: with foot ulcer Qualified Code(s): E11.621 - Type 2 diabetes mellitus with foot ulcer; L97.509 - Non-pressure chronic ulcer of other part of unspecified foot with unspecified severity Infectious Disease HPI - Data of Consult Patient: new to practice Consult date: 04/12/18 Requesting Physician: Pete Jefferson DO Primary Care Provider: Ivan Reid MD - Consult Narrative Reason for consult: Right foot cellulitis History of present illness: Ms. Gracia is a 62 year old female with past medical history of small cell lung cancer currently undergoing chemotherapy, COPD, CVA, diabetes, hypertension. The patient was admitted to the hospital April 08 for right foot cellulitis and leukocytosis. We are consulted April 12 for antibiotic recommendations for right foot cellulitis. Briefly, the patient is a 62-year-old female with past medical history as stated above. The patient was diagnosed with small cell lung cancer with metastases to the spine and liver in December 2017. She has undergone 5 cycles of cisplatin/carboplatin and etoposide with her last dose on April 05, , and . The patient was evaluated in the wound clinic on the day of admission and advised to come to the ER for concern of infection. Upon arrival to the ER, the patient was afebrile and hemodynamically stable. She had leukocytosis with neutrophilic predominance and lactic acidosis. Right foot x-ray was negative for acute abnormality. Blood cultures were obtained x 2 sets. The patient was started on IV Vanc and Zosyn and admitted to the hospital for further evaluation. Since admission, the patient has remained afebrile hemodynamically stable. Her leukocytosis initially worsened to 29,000 with neutrophilic predominance and that improved, but she developed bandemia. Podiatry was consulted but did not feel that her wound was infected, but her blood culture came back positive for MRSA. Today, the patient's white blood cell count is normal. Zosyn was discontinued yesterday and she is currently only on vancomycin. We have been asked to evaluate and make further recommendations. During my exam today, the patient states that overall she feels well. She reports some intermittent frontal headache, but denies dizziness, weakness, or syncope. She denies fevers, chills, or rigors. Denies chest pain, shortness of breath, or cough. Denies vomiting or diarrhea, but reports some intermittent nausea that she attributes to receiving chemo recently. She denies abdominal pain, urinary complaints, or appetite changes. Denies oral thrush. States she noticed that her foot was painful about 2 days before admission and shes unsure what caused the ulcer. She denies known trauma or wearing new shoes. She reports a small amount of purulent drainage, but no foul odor. She does report redness to the dorsal aspect of her foot, but denies streaking up the leg. She denies oral thrush or additional skin lesions. The patient lives at home with her son. 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 She denies tobacco, alcohol, or illicit drug use. She denies any recent travel and she does not have any pets/animals at home. CC: Pete Jefferson, DO Past Med Surg Social Fam HX - Past Medical History Attestation: Yes The following information was validated with the patient. Source: patient, old records reviewed, nursing notes reviewed Medical history: arthritis, cancer, COPD, CVA, diabetes, hypertension, other Additional medical history: Lung. Liver METS, hyperkalemia, hypocalcemia, anemia, hyponatremia, acute metabolic encephalopathy Psychiatric history: anxiety, depression - Past Surgical History Surgical History: , cancer surgery, cataract, cholecystectomy, hysterectomy, other Additional surgical history: toe removal - Social History Smoking Status: Never smoker Smokeless Tobacco Status: No Alcohol use: none Drug use: none - Family History Grandmother Family Member Ethnicity: Non- Living Status: Mother Family Member Ethnicity: Non- Living Status: Infectious Disease-CN:Meds Atorvastatin Calcium [Lipitor] 80 mg PO DAILY 06/24/16 [History] Cyclobenzaprine [Flexeril] 10 mg PO HS 06/24/16 [History] Gabapentin [Neurontin] 600 mg PO HS 06/24/16 [History] GlipiZIDE [Glipizide Xl] 5 mg PO BID 06/24/16 [History] Montelukast [Singulair] 10 mg PO DAILY 06/24/16 [History] Sertraline [Zoloft] 50 mg PO DAILY 06/24/16 [History] metFORMIN [Glucophage] 1,000 mg PO BID 06/24/16 [History] Acetaminophen [Tylenol] 650 mg PO Q6HR PRN #30 tablet 01/14/18 [Rx] Meloxicam [Mobic] 15 mg PO DAILY 01/19/18 [History] Oxycodone HCl 5 mg PO Q4H PRN 01/19/18 [History] Loperamide [Imodium] 2 mg PO AD PRN #30 capsule 01/29/18 [Rx] Magic Mouthwash 5 ml PO Q4H PRN #240 ml 01/29/18 [Rx] Ondansetron ODT [Zofran ODT] 4 mg SL Q6HR #20 tab.rapdis 01/29/18 [Rx] Dexamethasone [Decadron] 4 mg PO BID PRN #42 tab 04/05/18 [Rx] Prochlorperazine Maleate [Compazine] 10 mg PO Q6HR PRN #30 tablet 04/05/18 [Rx] Potassium Chloride [Klor-Con 10] 30 meq PO TID 04/08/18 [History] traZODone [TraZODone] 75 mg PO HS 04/08/18 [History] 3 Allergy/AdvReac Type Severity Reaction Status Date / Time Sulfa (Sulfonamide Allergy Hives Verified 04/05/18 08:40 Antibiotics) All systems: reviewed and no additional remarkable complaints except as stated Exam - Constitutional Vitals: Temp Pulse Resp BP Pulse Ox 98.6 F 84 14 156/79 97 04/12/18 07:21 04/12/18 07:21 04/12/18 07:21 04/12/18 07:21 04/12/18 07:21 General appearance: cooperative, no acute distress, obese - Head Head exam: Present: atraumatic, normal inspection, normocephalic - Eye Eye exam: Present: EOMI, normal appearance, PERRL Pupils: Present: normal accommodation - ENT ENT exam: Present: mucous membranes moist - Neck Neck exam: Present: normal inspection - Respiratory Respiratory exam: Present: CTAB. Absent: rales, respiratory distress, rhonchi, wheezes - Cardiovascular Cardiovascular exam: Present: RRR, +S1, +S2 - GI/Abdominal GI/Abdominal exam: Present: distended (obese), normal bowel sounds, soft. Absent: tenderness - Extremities Exam Extremities exam: Present: tenderness (Right foot). Absent: pedal edema Additional comments: Turner grade 2 ulceration noted to the lateral aspect of the right foot with area of necrosis and surrounding erythema noted. No yessy purulence noted. No fluctuance. Mild tenderness noted with palpation. - Neurological Exam Neurological exam: Present: alert, oriented X3, no focal deficits - Psychiatric Psychiatric exam: Present: normal affect, normal mood - Skin Skin exam: Present: dry, intact, normal color, warm - Additional findings Additional findings: A-port noted to the right upper chest, currently accessed with 19g Esquivel needle with transparent dressing C/D/I. No surrounding redness, warmth, or tenderness noted. Infectious Disease CN: Results - Labs CBC & Chem 7: 04/13/18 03:50 04/13/18 04:00 Consult Discharge Plan - Plan Referrals: Ivan Reid MD [Primary Care Provider] - - Attending Attestation I examined this patient and my medical decision-making was reviewed with the Resident Physician. I agree with the documented findings, disposition and treatment plan as described except to the extent set forth below. This is an addendum to original report dictated by Palma Phipps CNP. Please refer to Palma's note for full detail. Patient is a 62 year old woman with unfortunate history of small cell lung cancer diagnosed in December 2017 on combination of cisplatin/carboplatin and etoposide her most recent chemotherapy treatment was April 07 of this year she also has pressure ulcer on the buttock who is being followed by Dr. Cheng at the wound care came in for right foot cellulitis, leukocytosis and a foot ulcer. Assessment and plan: Right foot cellulitis likely causative organism MRSA likely secondary to diabetic foot ulcer. Imaging and labs have been reviewed. Osteomyelitis is on my differential. Patient is on vancomycin. Await ESR CRP and MRI results before making further recommendations. Discussed with the hospitalist team.
[2018-04-12] MEDS: Acetaminophen 325 MG TABLET PO PRN (13:53)
[2018-04-12 14:39] LABS: C-Reactive Protein 90 mg/L (Less than 10)
--- NOTE | 2018-04-12 16:57 | Internal Med Progress Note ---
Hospitalist Progress Note - Encounter Date of Encounter: 04/12/18 Time of Encounter: 17:01 - Subjective Interval History: Patient seen and examined at bedside. Patient no overnight acute events. Patient continues to feel fine and white blood cell count is much improved today and is normal. Infectious disease has evaluated the patient and ordered CRP due to her immunocompromised state which is elevated at 90 and recommends MRI. We will obtain MRI and follow CBC and continue Vanco for now, this was explained to the patient. Patient denies any chest pain, shortness breath, nausea, vomiting, diarrhea. Patient's been afebrile. - Exam Vitals: Temp Pulse Resp BP Pulse Ox 98.6 F 84 14 156/79 97 04/12/18 07:21 04/12/18 07:21 04/12/18 07:21 04/12/18 07:21 04/12/18 07:21 Exam: Constitutional: No acute distress, Alert Psych: AAO x 3 HEENT: NCAT, EOMI Neck: no neck stiffness Cardio: regular rate and rhythm Resp: clear to ascultation bilaterally Chest: port in right chest with no erythema or tenderness Abd: soft, non tender/non distended, positive bowel sounds, no gaurding/reboud/ ridgitity Extremities: Right lateral distal foot with approximately 3.5 x 4 cm ulceration with eschar, there is no purulence, surrounding erythema is resolved, there is no drainage or fluctuance; no crepitus bilateral buttocks pressure ulcerations examined both sides revealed shallow ulceration with skin breakdown with granulation tissue and no evidence of cellulitis or infection; unchanged from prior Derm: Few areas on forearms and shins of skin breakdown with scabbing, no cellulitis or erythema Neuro: no focal deficits appreciated - Assessment and Plan (1) Cellulitis of right foot Current Visit: Yes Status: Acute Assessment and Plan: Pt with cellulitis of right foot associated with infected diabetic foot ulcer -Leukocytosis on admission but no other SIRS; Leukocytosis increased to 29K and now normal at 7.7K -mildly elevated lactic acid; now resolved -cellulitis resolved -podiatry does not appreciate any active infection -Bandemia improved -unsure of etiology of significant leukocytosis with bandemia; possibly related to chemo? has used steroids for a few days prior to adimssion with chemo -ID eval and recs appreciated -continue IV vanco -blood cx ngtd -wound cx with MRSA -podiatry recommeded continued wound care and f/u in wound care clinic -wound care following -afebrile -cbc in am -CRP/ESR ordered and CRP 90; due to immunocompromised state and elevated inflammatory markers will obtain MRI of the right foot to rule out osteomyelitis (2) Unstageable pressure ulcer of right foot Current Visit: Yes Status: Acute Assessment and Plan: -Infected right lateral diabetic foot ulcer with eschar and surrounding cellulitis -Cellulitis resolved -Podiatry does not feel that the ulcer is currently infected and drainage is resolved -Please see above -ID consultation and recs appreciated -wound cx with MRSA -continue vanco -elevated CRP -MRI foot ordered (3) Pressure ulcer of buttock Current Visit: Yes Status: Acute Assessment and Plan: Pt with chronic 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 present on admission -These are not infected -follows in wound care clinic -wounds cleaned and dressed by wound care continue dressing changes (4) Cancer Current Visit: Yes Status: Acute Assessment and Plan: Cancer of liver and lung; unsure of primary -Chemo day prior to admission -outpt followup (5) Diabetes Current Visit: Yes Status: Acute Assessment and Plan: -Chronic -on metformin and glypizide; hold while inpt -SSI -accuchecks -diabetic diet (6) Anemia Current Visit: Yes Status: Chronic Assessment and Plan: Chronic anemia likely related to her chronic disease and chemotherapy -monitor cbc -transfuse < 7 -7.0 today (7) Hypophosphatemia Current Visit: Yes Status: Acute Assessment and Plan: -replaced and WNL (8) Hypomagnesemia Current Visit: Yes Status: Acute Assessment and Plan: -replaced; conintue mag ox bid -check in am (9) DVT prophylaxis Current Visit: Yes Status: Acute Assessment and Plan: -sub q heparin DVT Prophylaxis: -hep sq - Summary of Assessment and Plan Summary of Assessment and Plan: -Leukocytosis resolved however remains with high CRP, infectious disease evaluation and recs appreciated; due to an immunocompromised state and high CRP will obtain MRI of the right foot to rule out osteomyelitis. - Time Spent with Patient Total time spent is greater than 50% in coordination of care (as documented) at patient's floor/unit and/or counseling patient: 25 - 35 minutes Internal Medicine: Result - Labs CBC & Chem 7: 04/12/18 03:00 04/12/18 03:00 Labs: Short CBC 04/12/18 Range/Units 03:00 WBC 7.7 D (4.3-11.1) K/mcL Hgb 7.0 L (11.5-15.4) g/dL Hct 22.3 L (35.3-44.9) % Plt Count 202 (140-400) K/mcL Neutrophils # 6.6 (1.6-8.9) K/mcL BMP 04/12/18 03:00 Sodium 136 Potassium 3.7 Chloride 106 Carbon Dioxide 26 BUN 8 Creatinine 0.62 Glucose 143 H Calcium 7.5 L Consult Discharge Plan - Plan Referrals: Ivan Reid MD [Primary Care Provider] - (3) Pressure ulcer of buttock Qualifiers: Pressure injury stage: unspecified pressure injury stage Laterality: right Qualified Code(s): L89.319 - Pressure ulcer of right buttock, unspecified stage (5) Diabetes Qualifiers: Diabetes mellitus type: type 2 Diabetes mellitus shelter insulin use: without shelter use Diabetes mellitus complication status: with skin complications Diabetes mellitus complication detail: with foot ulcer Qualified Code(s): E11.621 - Type 2 diabetes mellitus with foot ulcer; L97.509 - Non-pressure chronic ulcer of other part of unspecified foot with unspecified severity (6) Anemia Qualifiers: Anemia type: unspecified type Qualified Code(s): D64.9 - Anemia, unspecified
[2018-04-12] MEDS: *HR* OxyCODONE Immed Rel 5 MG TABLET PO PRN (22:36)
[2018-04-12] MEDS: Gabapentin 300 MG CAPSULE PO SCH (22:37)
[2018-04-12] MEDS: traZODone 50 MG TABLET PO SCH (22:38)
[2018-04-13] MEDS: Ondansetron ODT 4 MG TAB.RAPDIS SL SCH ×4 (01:11→17:53)
[2018-04-13 04:24] LABS: Basophils % 0.3 %; Eosinophils % 0.5 %; Hematocrit 20.1 % (35.3-44.9); Hemoglobin 6.5 g/dL (11.5-15.4); Immature Granulocytes % 0.8 % (0-4); Immature Platelets 2.7 % (1.1-6.1); Lymphocytes # 0.5 K/mcL (0.6-4.6); Lymphocytes % 14.6 %; Mean Corpuscular HGB Conc 32.3 g/dL (31.6-35.5); Mean Corpuscular Hemoglobin 31.3 pg (28.0-33.3); Mean Corpuscular Volume 96.6 fL (83.0-100.0); Mean Platelet Volume 9.4 fL (9.4-12.4); Monocytes # 0.3 K/mcL (0.0-1.3); Monocytes % 7.9 %; Neutrophils # 2.8 K/mcL (1.6-8.9); Platelet Count 182 K/mcL (140-400); Red Blood Count 2.08 M/mcL (3.82-4.97); Red Cell Distribution Width 15.9 % (11.5-14.5); Segmented Neutrophils % 75.9 %
[2018-04-13 04:39] LABS: BUN/Creatinine Ratio 13 (6-26); Blood Urea Nitrogen 7 mg/dL (8-23); Calcium 7.8 mg/dL (8.6-10.3); Carbon Dioxide 27 mEq/L (23-29); Chloride 106 mEq/L (98-107); Glucose 147 mg/dL (70-105); Osmolality,Calculated 285 (280-300); Potassium 3.9 mEq/L (3.5-5.1); Sodium 137 mEq/L (136-145); eGFR For Non-African Americans > 60 (> 60)
[2018-04-13 04:39] LABS: Hypochromasia Present (Not Present)
[2018-04-13 04:40] LABS: Platelet Estimate Normal (Normal)
[2018-04-13] MEDS: *HR* Heparin 5,000 UNIT/ML VIAL SQ SCH ×3 (06:11→20:39)
[2018-04-13] MEDS: Insulin LISPRO 300 UNITS/3 ML VIAL SQ SCH ×4 (07:45→21:34)
[2018-04-13] MEDS ORDERED: 0.9 % Sodium Chloride 250 ML ONE ×2 (09:22→14:08)
[2018-04-13] MEDS: Magnesium Oxide 400 MG TABLET PO SCH ×2 (09:24→20:34)
[2018-04-13] MEDS: Acetaminophen 325 MG TABLET PO PRN (09:25)
--- NOTE | 2018-04-13 09:42 | Internal Med Progress Note ---
Hospitalist Progress Note - Encounter Date of Encounter: 04/13/18 Time of Encounter: 09:38 - Subjective Interval History: 62 F with PMH of small cell lung CA s/p chemo, HTN, hx of CVA, Pressure ulcer , multiple foot ulcers, DM (controlled with A1C 6.3%), COPD She is admitted and being managed for MRSA Rt foot cellulitis She is seen and evaluated at the bedside this a.m, she denies any acute events overnight, she has no chest pain or difficulty beating Her stool is formed and brown Labs this a.m shows HB 6.5, no obvious source of bleeding, patient reports prior unremarkable colonoscopy - Exam Vitals: Temp Pulse Resp BP Pulse Ox 98.3 F 83 16 124/75 95 04/13/18 07:40 04/13/18 07:40 04/13/18 07:40 04/13/18 07:40 04/13/18 07:40 Exam: Constitutional: No acute distress, Alert Psych: Normal affect HEENT: NCAT, EOMI Neck: no neck stiffness Cardio: regular rate and rhythm, loud systolic murmur on 2nd RICS Resp: clear to auscultation bilaterally Chest: port in right chest with no erythema or tenderness Abd: soft, non-tender/non distended, positive bowel sounds, no guarding/rebound/ rigidity Extremities: Right lateral distal foot with approximately 3.5 x 4 cm ulceration with eschar, there is no purulence, surrounding erythema is resolved, there is no drainage or fluctuance; no crepitus bilateral buttocks pressure ulcerations examined both sides revealed shallow ulceration with skin breakdown with granulation tissue and no evidence of cellulitis or infection; unchanged from prior Derm: Few areas on forearms and shins of skin breakdown with scabbing, no cellulitis or erythema Neuro: no focal deficits appreciated - Assessment and Plan (1) Unstageable pressure ulcer of right foot Current Visit: Yes Status: Acute Assessment and Plan: Infected right lateral diabetic foot ulcer with eschar and surrounding cellulitis Cellulitis now resolved Micro with MRSA, sensitive to clindamycin, daptomhcin, doxy, genticin, zyvox, vanco Podiatry does not feel that the ulcer is currently infected and drainage is resolved MRI ruled out OM, no abscess collection Leukocytosis rsolved, now leukopenic Vanco trough is therapeutic Continue Vanco, pharmacy to dose Infectious disease is following, will follow recs (2) Cellulitis of right foot Current Visit: Yes Status: Acute Assessment and Plan: as above (3) Pressure ulcer of buttock Current Visit: Yes Status: Acute Assessment and Plan: continue wound dressings, regular turning (4) Cancer Current Visit: Yes Status: Chronic Assessment and Plan: Cancer of liver and lung; unsure of primary -Chemo day prior to admission -outpt followup (5) Diabetes Current Visit: Yes Status: Chronic Assessment and Plan: Controlled, A1C 6.8 in 02/2018 Continue sliding scale insulin Goal FS is 140-180 FS ACHS ADA diet (6) Anemia Current Visit: Yes Status: Acute Assessment and Plan: Acute on chronic anemia Patient with knon anemia of chronic disease, probably exacerbated by chemo Hb this a.m 6.5 Will transfuse 2 units RBCS Check FOBT (7) DVT prophylaxis Current Visit: Yes Status: Acute Assessment and Plan: -sub q heparin (8) Hypophosphatemia Current Visit: Yes Status: Acute Assessment and Plan: replaced and WNL (9) Hypomagnesemia Current Visit: Yes Status: Acute Assessment and Plan: on po replacement Check Mag with a.m labs - Time Spent with Patient Total time spent is greater than 50% in coordination of care (as documented) at patient's floor/unit and/or counseling patient: Internal Medicine: Result - Labs CBC & Chem 7: 04/13/18 03:50 04/13/18 04:00 Labs: Short CBC 04/13/18 Range/Units 03:50 WBC 3.7 L D (4.3-11.1) K/mcL Hgb 6.5 L (11.5-15.4) g/dL Hct 20.1 L (35.3-44.9) % Plt Count 182 (140-400) K/mcL Neutrophils # 2.8 (1.6-8.9) K/mcL BMP 04/12/18 04/13/18 03:00 04:00 Sodium 136 137 Potassium 3.7 3.9 Chloride 106 106 Carbon Dioxide 26 27 BUN 8 7 L Creatinine 0.62 0.53 L Glucose 143 H 147 H Calcium 7.5 L 7.8 L - Impressions Impressions Foot MRI 04/12/18 17:04 IMPRESSION: No convincing MR evidence of osteomyelitis. Scattered areas of polyarticular increased signal within the bone marrow is identified, but that is felt to most likely represent a degenerative change. There are findings compatible with cellulitis, but no focal fluid collections are identified. 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
--- NOTE | 2018-04-13 15:01 | Infectious Disease Progress No ---
Date of Encounter: 04/13/18 Time of Encounter: 10:40 - Assessment and Plan (1) Leukocytosis Current Visit: No Status: Resolved The patient had leukocytosis with neutrophilic predominance noted on admission. Likely secondary to right foot cellulitis, worsened by recent steroid use. Improved. Now has leukopenia, which is likely secondary to recent chemotherapy. Continue to trend. Qualifiers: Leukocytosis type: unspecified Qualified Code(s): D72.829 - Elevated white blood cell count, unspecified (2) Cellulitis of right foot Current Visit: Yes Status: Acute Location: Right foot. Causative organism: likely MRSA. Likely secondary to DFU. Improved per patient report. Foot x-ray negative for acute abnormality. Podiatry consulted. Appreciate recommendations. Because the patient is immunocompromised, concern for underlying infection that may not manifest due to the patient's depressed immune response. Check ESR and CRP. --> 52, 90. MRI of the right foot negative for osteomyelitis or abscess. Continue Vancomycin IV. Pharmacy to dose. Goal trough ~15. Duration of treatment depends on the clinical picture, but likely a total of 14 days. Recommend switching to PO doxycycline 100mg PO BID to complete course of treatment. Treat through 04/21/18. Monitor renal function and for drug toxicity and dose-adjust antibiotics. (3) Foot ulcer Current Visit: No Status: Acute Location: Right lateral foot. Etiology: Unclear. Foot x-ray negative for acute abnormality. Podiatry consulted and following. Wound care per the podiatry team. Qualifiers: Laterality: right Non-pressure ulcer stage: unspecified non-pressure ulcer stage Qualified Code(s): L97.519 - Non-pressure chronic ulcer of other part of right foot with unspecified severity (4) Wounds, multiple open, lower extremity Current Visit: No Status: Acute Superficial, scabbed lesions noted to the BLE. Clinically do not appear infected. Qualifiers: Encounter type: initial encounter Laterality: left Qualified Code(s): S81.802A - Unspecified open wound, left lower leg, initial encounter (5) Elevated lactic acid level Current Visit: No Status: Resolved Likely secondary to infectious etiology. Resolved. (6) Pressure ulcer of buttock Current Visit: Yes Status: Acute Dressing changes per the wound care team's recommendations. Aggressive offloading and Q2H turns. Qualifiers: Pressure injury stage: unspecified pressure injury stage Laterality: right Qualified Code(s): L89.319 - Pressure ulcer of right buttock, unspecified stage (7) Anemia Current Visit: Yes Status: Acute Qualifiers: Anemia type: unspecified type Qualified Code(s): D64.9 - Anemia, unspecified (8) Small cell lung cancer Current Visit: No Status: Acute Diagnosed in December 2017. Primary lung with mets to the liver and spine. Received cycle 5 of Cisplatin/carboplatin and Etoposide 04/05, 04/06, and 04/07. Follows with [facility]. (9) Hypertension Current Visit: No Status: Chronic Qualifiers: Hypertension type: essential hypertension Qualified Code(s): I10 - Essential (primary) hypertension (10) CVA (cerebral vascular accident) Current Visit: No Status: Acute Qualifiers: CVA mechanism: unspecified Qualified Code(s): I63.9 - Cerebral infarction, unspecified (11) Diabetes Current Visit: Yes Status: Chronic Qualifiers: Diabetes mellitus type: type 2 Diabetes mellitus terminal clerk insulin use: without snf use Diabetes mellitus complication status: with skin complications Diabetes mellitus complication detail: with foot ulcer Qualified Code(s): E11.621 - Type 2 diabetes mellitus with foot ulcer; L97.509 - Non-pressure chronic ulcer of other part of unspecified foot with unspecified severity - Subjective Interval history: Patient seen and examined. No acute events noted overnight. Patient states overall she feels well and wants to go home. Denies any fevers or chills or rigors. Denies chest pain, shortness of breath, or cough. Reports chronic nausea but is at baseline, but denies vomiting or diarrhea. She denies any abdominal pain or appetite changes. She denies any urinary complaints. She denies any oral thrush or any skin lesions. She reports that her right foot is still a little sore, but seems to be getting better. Infect Dis PN-Objective Data - Labs CBC & Chem 7: 04/14/18 04:40 04/14/18 04:40 Labs: Laboratory Results - last 24 hr 04/11/18 04/11/18 04/12/18 16:47 19:40 03:00 WBC RBC Hgb Hct MCV MCH MCHC RDW Plt Count MPV Immature Gran % Seg Neutrophils % Lymphocytes % Monocytes % Eosinophils % Basophils % Neutrophils # Lymphocytes # Monocytes # Eosinophils # Basophils # Platelet Estimate Immature Plt Fraction Hypochromasia ESR 52 H Sodium Potassium Chloride Carbon Dioxide BUN Creatinine Est GFR ( Amer) Est GFR (Non-Af Amer) BUN/Creatinine Ratio Glucose POC Glucose 135 H 201 H Calculated Osmolality Calcium Vancomycin Trough Blood Type Antibody Screen Crossmatch 04/12/18 04/12/18 04/12/18 08:00 11:22 14:40 WBC RBC Hgb Hct MCV MCH MCHC RDW Plt Count MPV Immature Gran % Seg Neutrophils % Lymphocytes % Monocytes % Eosinophils % Basophils % Neutrophils # Lymphocytes # Monocytes # Eosinophils # Basophils # Platelet Estimate Immature Plt Fraction Hypochromasia ESR Sodium Potassium Chloride Carbon Dioxide BUN Creatinine Est GFR ( Amer) Est GFR (Non-Af Amer) BUN/Creatinine Ratio Glucose POC Glucose 165 H 212 H Calculated Osmolality Calcium Vancomycin Trough 20 H Blood Type Antibody Screen Crossmatch 04/12/18 04/12/18 04/13/18 16:25 20:44 03:50 WBC 3.7 L D RBC 2.08 L Hgb 6.5 L Hct 20.1 L MCV 96.6 MCH 31.3 MCHC 32.3 RDW 15.9 H Plt Count 182 MPV 9.4 Immature Gran % 0.8 Seg Neutrophils % 75.9 Lymphocytes % 14.6 Monocytes % 7.9 Eosinophils % 0.5 Basophils % 0.3 Neutrophils # 2.8 Lymphocytes # 0.5 L Monocytes # 0.3 Eosinophils # 0.0 Basophils # 0.0 Platelet Estimate Normal Immature Plt Fraction 2.7 Hypochromasia Present A ESR Sodium Potassium Chloride Carbon Dioxide BUN Creatinine Est GFR ( Amer) Est GFR (Non-Af Amer) BUN/Creatinine Ratio Glucose POC Glucose 196 H 169 H Calculated Osmolality Calcium Vancomycin Trough Blood Type Antibody Screen Crossmatch 04/13/18 04/13/18 04/13/18 04:00 07:35 08:44 WBC RBC Hgb Hct MCV MCH MCHC RDW Plt Count MPV Immature Gran % Seg Neutrophils % Lymphocytes % Monocytes % Eosinophils % Basophils % Neutrophils # Lymphocytes # Monocytes # Eosinophils # Basophils # Platelet Estimate Immature Plt Fraction Hypochromasia ESR Sodium 137 Potassium 3.9 Chloride 106 Carbon Dioxide 27 BUN 7 L Creatinine 0.53 L Est GFR ( Amer) > 60 Est GFR (Non-Af Amer) > 60 BUN/Creatinine Ratio 13 Glucose 147 H POC Glucose 126 H Calculated Osmolality 285 Calcium 7.8 L Vancomycin Trough Blood Type B POSITIVE Antibody Screen NEGATIVE Crossmatch See Detail - Impressions Impressions Foot MRI 04/12/18 17:04 IMPRESSION: No convincing MR evidence of osteomyelitis. Scattered areas of polyarticular increased signal within the bone marrow is identified, but that is felt to most likely represent a degenerative change. There are findings compatible with cellulitis, but no focal fluid collections are identified. D/ / Bethel Dixon MD / Bethel Dixon MD Interpreting Provider: Bethel Dixon MD Exam - Constitutional Vitals: Temp Pulse Resp BP Pulse Ox 97.6 F 78 16 115/57 96 04/13/18 13:57 04/13/18 13:57 04/13/18 13:57 04/13/18 13:57 04/13/18 13:57 General appearance: cooperative, no acute distress, obese - Head Head exam: Present: atraumatic, normal inspection, normocephalic - Eye Eye exam: Present: EOMI, normal appearance, PERRL Pupils: Present: normal accommodation - ENT ENT exam: Present: mucous membranes moist - Neck Neck exam: Present: normal inspection - Respiratory Respiratory exam: Present: CTAB. Absent: rales, respiratory distress, rhonchi, wheezes - Cardiovascular Cardiovascular exam: Present: RRR, +S1, +S2 - GI/Abdominal GI/Abdominal exam: Present: distended (obese), normal bowel sounds, soft. Absent: tenderness - Extremities Exam Extremities exam: Present: normal inspection. Absent: joint swelling, pedal edema, tenderness Additional comments: Right foot dressing C/D/I. - Neurological Exam Neurological exam: Present: alert, oriented X3, no focal deficits - Psychiatric Psychiatric exam: Present: normal affect, normal mood - Skin Skin exam: Present: dry, intact, normal color, warm Consult Discharge Plan - Plan Referrals: David Garcia DPM [Partnered Physician] - 04/29/18 3:00 pm (Patient will see DR. Garcia in the Wound Care Department. Thank you) Micheal Dickerson DO [Partnered Physician] - 04/26/18 12:00 pm Prescriptions: Chlorhexidine Gluconate [Hibiclens] 946 ml TP DAILY #1 bottle Collagenase Oint [Santyl] 1 appl TP BID #2 tube Collagenase Oint [Santyl] 1 appl TP BID #2 tube Doxycycline 100 mg PO BID 7 Days #14 capsule Magnesium Oxide [Mag-Ox] 400 mg PO BID #60 tablet - Attending Attestation I examined this patient and my medical decision-making was reviewed with the Resident Physician. I agree with the documented findings, disposition and treatment plan as described except to the extent set forth below.
[2018-04-13] MEDS: traZODone 50 MG TABLET PO SCH (20:33)
[2018-04-13] MEDS: Gabapentin 300 MG CAPSULE PO SCH (20:34)
[2018-04-14] MEDS: Ondansetron ODT 4 MG TAB.RAPDIS SL SCH ×3 (00:38→11:26)
[2018-04-14] MEDS: Acetaminophen 325 MG TABLET PO PRN (04:33)
[2018-04-14] MEDS: *HR* Heparin 5,000 UNIT/ML VIAL SQ SCH ×2 (04:34→13:43)
[2018-04-14 05:58] LABS: Hemoglobin 8.5 g/dL (11.5-15.4); Mean Corpuscular HGB Conc 32.7 g/dL (31.6-35.5); Mean Corpuscular Hemoglobin 30.6 pg (28.0-33.3); Mean Corpuscular Volume 93.5 fL (83.0-100.0); Platelet Count 148 K/mcL (140-400); Red Blood Count 2.78 M/mcL (3.82-4.97)
[2018-04-14 06:50] LABS: Blood Urea Nitrogen 8 mg/dL (8-23); Calcium 8.5 mg/dL (8.6-10.3); Carbon Dioxide 24 mEq/L (23-29); Chloride 106 mEq/L (98-107); Glucose 147 mg/dL (70-105); Osmolality,Calculated 285 (280-300); Sodium 137 mEq/L (136-145)
[2018-04-14 07:09] LABS: Lymphocytes # 0.5 K/mcL (0.6-4.6); Monocytes # 0.3 K/mcL (0.0-1.3); Neutrophils # 3.2 K/mcL (1.6-8.9); Platelet Estimate Normal (Normal)
[2018-04-14] MEDS: Insulin LISPRO 300 UNITS/3 ML VIAL SQ SCH ×2 (07:30→11:31)
[2018-04-14 07:41] LABS: BUN/Creatinine Ratio 14 (6-26); eGFR For Non-African Americans > 60 (> 60)
[2018-04-14] MEDS: Magnesium Oxide 400 MG TABLET PO SCH (08:03)
[2018-04-14] MEDS ORDERED: Doxycycline 100 MG CAPSULE PO SCH (09:00)
--- NOTE | 2018-04-14 09:42 | Discharge Summary ---
- NOTES TO OUTPATIENT PROVIDER Notes to Outpatient Provider: Patient admitted for MRSA right foot cellultiis, received IV avnco in the hospital, sensitive to doxycyclie, discharged on doxycycline po or 7 more days to complete therapy for 14 days. She also received 2 units of RBCs for anemia likley due to chemotherapy, there was no obvious source of bleeding. Home meds are unchanged. discharged with home services. Follow-up with surgery for wound care Orders not resulted at time of discharge: Pending orders 04/13/18 08:25 Occult Blood,Stool [BF] Stat Date of Encounter: 04/14/18 Time of Encounter: 09:42 - Discharge Diagnosis (1) Unstageable pressure ulcer of right foot Priority: Primary Status: Acute (2) Cellulitis of right foot Priority: Primary Status: Acute (3) Pressure ulcer of buttock Priority: Primary Status: Acute Qualifiers: Pressure injury stage: unspecified pressure injury stage Laterality: right Qualified Code(s): L89.319 - Pressure ulcer of right buttock, unspecified stage (4) Cancer Priority: Secondary Status: Chronic (5) Diabetes Priority: Secondary Status: Chronic Qualifiers: Diabetes mellitus type: type 2 Diabetes mellitus long term care pharmacist insulin use: without halfway use Diabetes mellitus complication status: with skin complications Diabetes mellitus complication detail: with foot ulcer Qualified Code(s): E11.621 - Type 2 diabetes mellitus with foot ulcer; L97.509 - Non-pressure chronic ulcer of other part of unspecified foot with unspecified severity (6) Anemia Priority: Secondary Status: Chronic Qualifiers: Anemia type: unspecified type Qualified Code(s): D64.9 - Anemia, unspecified (7) DVT prophylaxis Priority: Primary Status: Resolved (8) Hypophosphatemia Priority: Primary Status: Resolved (9) Hypomagnesemia Priority: Primary Status: Acute Hospital course: Ms. Gracia is a 62 year old female with PMH of metastatic CA on chemo, DM, Multiple pressure ulcers, HLD, COPD/Asthma Patient admitted for MRSA right foot cellulitis, received IV vanco in the hospital, sensitive to doxycycline, discharged on doxycycline po for 7 more days to complete therapy for 14 days. She also received 2 units of RBCs for anemia likely due to chemotherapy, there was no obvious source of bleeding. Hb is now stable Home meds are unchanged. discharged with home services. Follow-up with PCP surgery for wound care Plan of care discussed, verbalized understanding Discharge discussed with: patient, family, nurse, case management - Time Spent with Patient Total time spent providing and/or coordinating discharge services: Less than 30 minutes - Discharge Medications Prescriptions: Chlorhexidine Gluconate [Hibiclens] 946 ml TP DAILY #1 bottle Collagenase Oint [Santyl] 1 appl TP BID #2 tube Collagenase Oint [Santyl] 1 appl TP BID #2 tube Doxycycline 100 mg PO BID 7 Days #14 capsule Magnesium Oxide [Mag-Ox] 400 mg PO BID #60 tablet Home Medications: Atorvastatin Calcium [Lipitor] 80 mg PO DAILY 06/24/16 [History] Cyclobenzaprine [Flexeril] 10 mg PO HS 06/24/16 [History] Gabapentin [Neurontin] 600 mg PO HS 06/24/16 [History] GlipiZIDE [Glipizide Xl] 5 mg PO BID 06/24/16 [History] Montelukast [Singulair] 10 mg PO DAILY 06/24/16 [History] Sertraline [Zoloft] 50 mg PO DAILY 06/24/16 [History] metFORMIN [Glucophage] 1,000 mg PO BID 06/24/16 [History] Acetaminophen [Tylenol] 650 mg PO Q6HR PRN #30 tablet 01/14/18 [Rx] Oxycodone HCl 5 mg PO Q4H PRN 01/19/18 [History] Loperamide [Imodium] 2 mg PO AD PRN #30 capsule 01/29/18 [Rx] Magic Mouthwash 5 ml PO Q4H PRN #240 ml 01/29/18 [Rx] Ondansetron ODT [Zofran ODT] 4 mg SL Q6HR #20 tab.rapdis 01/29/18 [Rx] Dexamethasone [Decadron] 4 mg PO BID PRN #42 tab 04/05/18 [Rx] Prochlorperazine Maleate [Compazine] 10 mg PO Q6HR PRN #30 tablet 04/05/18 [Rx] Potassium Chloride [Klor-Con 10] 30 meq PO TID 04/08/18 [History] traZODone [TraZODone] 75 mg PO HS 04/08/18 [History] Chlorhexidine Gluconate [Hibiclens] 946 ml TP DAILY #1 bottle 04/14/18 [Rx] Collagenase Oint [Santyl] 1 appl TP BID #2 tube 04/14/18 [Rx] Collagenase Oint [Santyl] 1 appl TP BID #2 tube 04/14/18 [Rx] Doxycycline 100 mg PO BID 7 Days #14 capsule 04/14/18 [Rx] Magnesium Oxide [Mag-Ox] 400 mg PO BID #60 tablet 04/14/18 [Rx] Allergies/Adverse Reactions: 3 Allergy/AdvReac Type Severity Reaction Status Date / Time Sulfa (Sulfonamide Allergy Hives Verified 04/05/18 08:40 Antibiotics) Date of admission: 04/11/18 08:11 Primary care physician: Ivan Reid MD Discharging clinician: Fredo Casper Anticipated date of discharge: 04/14/18 - Constitutional Vitals: Temp Pulse Resp BP Pulse Ox 98.0 F 81 16 104/59 94 04/14/18 07:16 04/14/18 07:16 04/14/18 07:16 04/14/18 07:16 04/14/18 07:16 Exam: Constitutional: No acute distress, Alert Psych: Normal affect HEENT: NCAT, EOMI Neck: no neck stiffness Cardio: regular rate and rhythm, loud systolic murmur on 2nd RICS Resp: clear to auscultation bilaterally Chest: port in right chest with no erythema or tenderness Abd: soft, non-tender/non distended, positive bowel sounds, no guarding/rebound/ rigidity Extremities: Wound dressing clean and dry Derm: Few areas on forearms and shins of skin breakdown with scabbing, no cellulitis or erythema Neuro: no focal deficits appreciated - Patient Status Disposition: Home Health Service Condition: Good Functional capacity at discharge: uses cane/walker Overall status at discharge: patient is progressing back to baseline - Discharge Instructions Follow Up With: David Garcia DPM [Partnered Physician] - 04/29/18 3:00 pm (Patient will see DR. Garcia in the Wound Care Department. Thank you) Micheal Dickerson DO [Partnered Physician] - 04/26/18 12:00 pm - Diet and Activity Activity: resume usual activities as tolerated Diet: diabetic diet, low fat, low cholesterol, low salt diet
--- NOTE | 2018-04-14 09:47 | Physician Discharge Referral ---
Home Health/Hosp Referral Info Transfer to: Home Health Attending Provider: Leanna Casper Provider in Charge Post Discharge: PCP - Diagnosis (1) Unstageable pressure ulcer of right foot Priority: Primary Status: Acute (2) Cellulitis of right foot Priority: Primary Status: Acute (3) Pressure ulcer of buttock Priority: Primary Status: Acute (4) Cancer Priority: Secondary Status: Chronic (5) Diabetes Priority: Secondary Status: Chronic (6) Anemia Priority: Secondary Status: Chronic (7) DVT prophylaxis Priority: Primary Status: Resolved (8) Hypophosphatemia Priority: Primary Status: Resolved (9) Hypomagnesemia Priority: Primary Status: Acute - Respiratory Orders Smoking Cessation: Smoking cessation has been advised. For more information, call the [employer] Tobacco Quit Line at 2-576-EFIB-NOW. - Dressing/Wound Care Site: Right foot and buttocks, see below Type of Dressing/Treatments w/Frequency: Wound Care: 1. stage 3 pressure injuries to the bilateral buttocks - resume orders as per Dr. Cheng ([facility]) - cleanse daily with soap and water - rinse well with water and pat dry - apply collagen (CSS-Promogran) to the wound with 2 -3 drops of sterile saline - cover with 1/2 of a 5x9 ABD - hold secure with medipore tape - change daily and prn if soiled 2. Cleanse right foot and toes aggressively with Hibiclens and water. Rinse. Apply Santyl nickel thick to wound plantar right forefoot over fifth MTPJ cover with saline moist 4 x 4 anchored with Medipore only to be done twice a day - Diet/Nutrition Diet/Nutrition Orders: Cardiac, No Concentrated Sweets - Activity Activity Orders: Up ad jae - Services Needed Following services are medically necessary services: Nursing, Home Health Aide, Physical Therapy, Occupational Therapy - Transfer Medications Prescriptions: Chlorhexidine Gluconate [Hibiclens] 946 ml TP DAILY #1 bottle Collagenase Oint [Santyl] 1 appl TP BID #2 tube Collagenase Oint [Santyl] 1 appl TP BID #2 tube Doxycycline 100 mg PO BID 7 Days #14 capsule Magnesium Oxide [Mag-Ox] 400 mg PO BID #60 tablet Home Medications: Atorvastatin Calcium [Lipitor] 80 mg PO DAILY 06/24/16 [History] Cyclobenzaprine [Flexeril] 10 mg PO HS 06/24/16 [History] Gabapentin [Neurontin] 600 mg PO HS 06/24/16 [History] GlipiZIDE [Glipizide Xl] 5 mg PO BID 06/24/16 [History] Montelukast [Singulair] 10 mg PO DAILY 06/24/16 [History] Sertraline [Zoloft] 50 mg PO DAILY 06/24/16 [History] metFORMIN [Glucophage] 1,000 mg PO BID 06/24/16 [History] Acetaminophen [Tylenol] 650 mg PO Q6HR PRN #30 tablet 01/14/18 [Rx] Oxycodone HCl 5 mg PO Q4H PRN 01/19/18 [History] Loperamide [Imodium] 2 mg PO AD PRN #30 capsule 01/29/18 [Rx] Magic Mouthwash 5 ml PO Q4H PRN #240 ml 01/29/18 [Rx] Ondansetron ODT [Zofran ODT] 4 mg SL Q6HR #20 tab.rapdis 01/29/18 [Rx] Dexamethasone [Decadron] 4 mg PO BID PRN #42 tab 04/05/18 [Rx] Prochlorperazine Maleate [Compazine] 10 mg PO Q6HR PRN #30 tablet 04/05/18 [Rx] Potassium Chloride [Klor-Con 10] 30 meq PO TID 04/08/18 [History] traZODone [TraZODone] 75 mg PO HS 04/08/18 [History] Chlorhexidine Gluconate [Hibiclens] 946 ml TP DAILY #1 bottle 04/14/18 [Rx] Collagenase Oint [Santyl] 1 appl TP BID #2 tube 04/14/18 [Rx] Collagenase Oint [Santyl] 1 appl TP BID #2 tube 04/14/18 [Rx] Doxycycline 100 mg PO BID 7 Days #14 capsule 04/14/18 [Rx] Magnesium Oxide [Mag-Ox] 400 mg PO BID #60 tablet 04/14/18 [Rx] Allergies/Adverse Reactions: 3 Allergy/AdvReac Type Severity Reaction Status Date / Time Sulfa (Sulfonamide Allergy Hives Verified 04/05/18 08:40 Antibiotics) Certification: Further, I certify that my clinical findings support that this patient is homebound (i.e. absences from home require considerable and taxing effort and are for medical reasons or mormonism services or infrequently or short duration when for other reasons) because: Homebound Reason: Patient requires assistance of a person or device to safely leave home Attestation: My signature below is to certify that this patient is under my care and that I, or nurse practitioner, or a physician's sound assistant working with me, has a face-to -face encounter with this patient.
[2018-04-14 11:34] VITALS: BP 144/72
--- NOTE | 2018-04-14 14:04 | Infectious Disease Progress No ---
Date of Encounter: 04/14/18 Time of Encounter: 10:30 - Assessment and Plan (1) Leukocytosis Current Visit: No Status: Resolved The patient had leukocytosis with neutrophilic predominance noted on admission. Likely secondary to right foot cellulitis, worsened by recent steroid use. Improved. Had leukopenia yesterday which has improved today. Continue to trend. Qualifiers: Leukocytosis type: unspecified Qualified Code(s): D72.829 - Elevated white blood cell count, unspecified (2) Cellulitis of right foot Current Visit: Yes Status: Acute Location: Right foot. Causative organism: likely MRSA. Likely secondary to DFU. Improved per patient report. Foot x-ray negative for acute abnormality. Podiatry consulted. Appreciate recommendations. Because the patient is immunocompromised, concern for underlying infection that may not manifest due to the patient's depressed immune response. Check ESR and CRP. --> 52, 90. MRI of the right foot negative for osteomyelitis or abscess. Vanc discontinued by the primary team and switched to PO doxycycline. Continue doxycycline 100mg PO BID. Duration of treatment depends on the clinical picture, but likely a total of 14 days. Treat through 04/21/18. Monitor renal function and for drug toxicity and dose-adjust antibiotics. (3) Foot ulcer Current Visit: No Status: Acute Location: Right lateral foot. Etiology: Unclear. Foot x-ray negative for acute abnormality. Podiatry consulted and following. Wound care per the podiatry team. Qualifiers: Laterality: right Non-pressure ulcer stage: unspecified non-pressure ulcer stage Qualified Code(s): L97.519 - Non-pressure chronic ulcer of other part of right foot with unspecified severity (4) Wounds, multiple open, lower extremity Current Visit: No Status: Acute Superficial, scabbed lesions noted to the BLE. Clinically do not appear infected. Qualifiers: Encounter type: initial encounter Laterality: left Qualified Code(s): S81.802A - Unspecified open wound, left lower leg, initial encounter (5) Elevated lactic acid level Current Visit: No Status: Resolved Likely secondary to infectious etiology. Resolved. (6) Pressure ulcer of buttock Current Visit: Yes Status: Acute Dressing changes per the wound care team's recommendations. Aggressive offloading and Q2H turns. Qualifiers: Pressure injury stage: unspecified pressure injury stage Laterality: right Qualified Code(s): L89.319 - Pressure ulcer of right buttock, unspecified stage (7) Anemia Current Visit: Yes Status: Acute Hgb down to 6.9 yesterday. Improved after 2 units PRBCs. Continue to trend. Workup and management per the primary team. Qualifiers: Anemia type: unspecified type Qualified Code(s): D64.9 - Anemia, unspecified (8) Small cell lung cancer Current Visit: No Status: Acute Diagnosed in December 2017. Primary lung with mets to the liver and spine. Received cycle 5 of Cisplatin/carboplatin and Etoposide 04/05, 04/06, and 04/07. Follows with [facility]. (9) Hypertension Current Visit: No Status: Chronic Qualifiers: Hypertension type: essential hypertension Qualified Code(s): I10 - Essential (primary) hypertension (10) CVA (cerebral vascular accident) Current Visit: No Status: Acute Qualifiers: CVA mechanism: unspecified Qualified Code(s): I63.9 - Cerebral infarction, unspecified (11) Diabetes Current Visit: Yes Status: Chronic Recommend aggressive glucose monitoring and control to promote wound healing and prevent re-infection. Management per the primary team. Qualifiers: Diabetes mellitus type: type 2 Diabetes mellitus parts counterman insulin use: without parts counterman use Diabetes mellitus complication status: with skin complications Diabetes mellitus complication detail: with foot ulcer Qualified Code(s): E11.621 - Type 2 diabetes mellitus with foot ulcer; L97.509 - Non-pressure chronic ulcer of other part of unspecified foot with unspecified severity - Subjective Interval history: Patient seen and examined. No acute events noted overnight. Patient states overall she feels well and wants to go home. Denies any fevers or chills or rigors. Denies chest pain, shortness of breath, or cough. Reports chronic nausea but is at baseline, but denies vomiting or diarrhea. She denies any abdominal pain or appetite changes. She denies any urinary complaints. She denies any oral thrush or any skin lesions. She reports that her right foot is still a little sore, but seems to be getting better. Infect Dis PN-Objective Data - Labs CBC & Chem 7: 04/14/18 04:40 04/14/18 04:40 Labs: Laboratory Results - last 24 hr 04/13/18 04/13/18 04/13/18 08:44 11:30 16:26 WBC RBC Hgb Hct MCV MCH MCHC RDW Plt Count MPV Seg Neutrophils % Band Neutrophils % Lymphocytes % Monocytes % Metamyelocytes % Neutrophils # Lymphocytes # Monocytes # Platelet Estimate Sodium Potassium Chloride Carbon Dioxide BUN Creatinine Est GFR ( Amer) Est GFR (Non-Af Amer) BUN/Creatinine Ratio Glucose POC Glucose 205 H 162 H Calculated Osmolality Calcium Magnesium Vancomycin Trough Blood Type B POSITIVE Antibody Screen NEGATIVE Crossmatch See Detail 04/13/18 04/14/18 04/14/18 21:23 04:40 04:40 WBC 4.1 L RBC 2.78 L Hgb 8.5 L D Hct 26.0 L MCV 93.5 MCH 30.6 MCHC 32.7 RDW 16.0 H Plt Count 148 MPV 10.0 Seg Neutrophils % 70.0 Band Neutrophils % 8.0 H Lymphocytes % 12.0 Monocytes % 8.0 Metamyelocytes % 2.0 H Neutrophils # 3.2 Lymphocytes # 0.5 L Monocytes # 0.3 Platelet Estimate Normal Sodium 137 Potassium 4.0 Chloride 106 Carbon Dioxide 24 BUN 8 Creatinine 0.56 L Est GFR ( Amer) > 60 Est GFR (Non-Af Amer) > 60 BUN/Creatinine Ratio 14 Glucose 147 H POC Glucose 145 H Calculated Osmolality 285 Calcium 8.5 L Magnesium Vancomycin Trough Blood Type Antibody Screen Crossmatch 04/14/18 04/14/18 04:40 06:42 WBC RBC Hgb Hct MCV MCH MCHC RDW Plt Count MPV Seg Neutrophils % Band Neutrophils % Lymphocytes % Monocytes % Metamyelocytes % Neutrophils # Lymphocytes # Monocytes # Platelet Estimate Sodium Potassium Chloride Carbon Dioxide BUN Creatinine Est GFR ( Amer) Est GFR (Non-Af Amer) BUN/Creatinine Ratio Glucose POC Glucose Calculated Osmolality Calcium Magnesium 1.3 L Vancomycin Trough 17 H Blood Type Antibody Screen Crossmatch Exam - Constitutional Vitals: Temp Pulse Resp BP Pulse Ox 98.6 F 90 16 144/72 95 04/14/18 11:33 04/14/18 11:33 04/14/18 11:33 04/14/18 11:33 04/14/18 11:33 General appearance: cooperative, no acute distress, obese - Head Head exam: Present: atraumatic, normal inspection, normocephalic - Eye Eye exam: Present: EOMI, normal appearance, PERRL Pupils: Present: normal accommodation - ENT ENT exam: Present: mucous membranes moist - Neck Neck exam: Present: normal inspection - Respiratory Respiratory exam: Present: CTAB. Absent: rales, respiratory distress, rhonchi, wheezes - Cardiovascular Cardiovascular exam: Present: RRR, +S1, +S2 - GI/Abdominal GI/Abdominal exam: Present: distended (obese), normal bowel sounds, soft. Absent: tenderness - Extremities Exam Extremities exam: Present: normal inspection, tenderness (right foot, mild). Absent: pedal edema Additional comments: Right foot dressing C/D/I. - Neurological Exam Neurological exam: Present: alert, oriented X3, no focal deficits - Psychiatric Psychiatric exam: Present: normal affect, normal mood - Skin Skin exam: Present: dry, intact, normal color, warm Consult Discharge Plan - Plan Referrals: David Garcia DPM [Partnered Physician] - 04/29/18 3:00 pm (Patient will see DR. Garcia in the Wound Care Department. Thank you) Micheal Dickerson DO [Partnered Physician] - 04/26/18 12:00 pm Prescriptions: Chlorhexidine Gluconate [Hibiclens] 946 ml TP DAILY #1 bottle Collagenase Oint [Santyl] 1 appl TP BID #2 tube Collagenase Oint [Santyl] 1 appl TP BID #2 tube Doxycycline 100 mg PO BID 7 Days #14 capsule Magnesium Oxide [Mag-Ox] 400 mg PO BID #60 tablet
[2018-04-14] MEDS ORDERED: Aminoglycoside Consult 1 EACH MC ONE (14:41)
== END 2018-04-14 14:42 | disposition home health service (06) | DRG 637 ==
LOC: EMEROOARM 15:32 → 3ANU 15:32 → SUATTDRO 04-11 08:11
PROVIDERS: ADMIT Student in an Organized Health Care Education/Training Program; ATTEND Internal Medicine